=== PATIENT | male | born 1955 | race African-American/Black ===

== ENCOUNTER 2017-02-14 17:07 | Inpatient (IN) | payer OTHER ==
[~2017-02-14] VITALS: Ht 175.3 cm; Wt 78.0 kg
[~2017-02-14 17:07] MED LIST: HUMU70IN SQ; VITA100020 PO; VITA400C58 PO; VITA50TA30 PO
[2017-02-14 17:27] VITALS: BP 132/83; PULSE 81; RESP 18; TEMP 98.3; O2SAT 97
[2017-02-14 17:37] VITALS: BP 132/83; PULSE 90; RESP 20; O2SAT 96
[2017-02-14] MEDS ORDERED: SODIUM CHLOR 0.9% 1000 ML INJ 1,000 ML IV SCH (17:38)
[2017-02-14] MEDS ORDERED: NOVORP2 SQ (17:40)
[2017-02-14] MEDS ORDERED: NOVOLOGP2 SQ (17:40)
[2017-02-14 17:43] VITALS: RESP 18; O2SAT 96
--- NOTE | 2017-02-14 17:43 | PD ---
HPI Chief Complaint: GI Complaint Time Seen by Provider: 17:32 Travel History International Travel<30 days: No Contact w/Intl Traveler<30days: No Traveled to known affect area: No History of Present Illness HPI PT C/O 2 DAYS OF LLQ PAIN AND NOW TODAY DARK TARRY STOOLS, HAS H/O RA AND ON MTX WELL EMBREL PER HISTORY PFSH Past Medical History Hx Anticoagulant Therapy: Yes Arthritis: Yes Atrial Fibrillation: Yes Depression: Yes Heart Rhythm Problems: Yes (atrial fibrillation) Cardiac Catheterization: Yes (1996) Cardiovascular Problems: Yes High Cholesterol: Yes Congestive Heart Failure: No Diabetes: Yes Patient Takes Glucophage: No Diminished Hearing: No Hypertension: Yes Psychiatric: Yes (PTSD) Tetanus Vaccination: Unknown Influenza Vaccination: Yes Past Surgical History Appendectomy: Yes Other Surgery: Yes (l1 l2 , c5 c6 laminectomies with plate and screws in cervical) Family History Family Myocardial Infarction: Yes (father of [place]) Social History Alcohol Use: No Tobacco Use: No Substance Use: No Allergies-Medications (Allergen,Severity, Reaction): Coded Allergies: Lipitor (Verified Allergy, Severe, JOINT PAIN, 02/14/17) Neurontin (Verified Allergy, Severe, 02/14/17) Cymbalta (Verified Allergy, Intermediate, RASH AND HIVES, 02/14/17) Reported Meds & Prescriptions Reported Meds & Active Scripts Active Reported Novolin R Inj (Insulin Human Regular) 1,000 Unit/10 Ml Vial 0 SQ DIRECTED Sliding Scale As Directed. Novolog Inj (Insulin Aspart) 1,000 Unit/10 Ml Vial 0 SQ DIRECTED Sliding Scale as directed. Review of Systems Except as stated in HPI: all other systems reviewed are Neg Gastrointestinal: Positive: Abdominal Pain, Other (MELENA) Physical Exam Narrative GENERAL: SKIN: Warm and dry. HEAD: Atraumatic. Normocephalic. EYES: Pupils equal and round. No scleral icterus. No injection or drainage. ENT: No nasal bleeding or discharge. Mucous membranes pink and moist. NECK: Trachea midline. No JVD. CARDIOVASCULAR: Regular rate and rhythm. RESPIRATORY: No accessory muscle use. Clear to auscultation. Breath sounds equal bilaterally. GASTROINTESTINAL: NABS, TTP ON LLQ, NO REBOUND/GUARDING/RIGIDITY, RN MINE ADMINISTRATOR SUPERVISOR SHOWS GUAIAC POSITIVE. MUSCULOSKELETAL: Extremities without clubbing, cyanosis, or edema. No obvious deformities. NEUROLOGICAL: Awake and alert. No obvious cranial nerve deficits. Motor grossly within normal limits. Five out of 5 muscle strength in the arms and legs. Normal speech. PSYCHIATRIC: Appropriate mood and affect; insight and judgment normal. Data Data Last Documented VS Vital Signs Date Time Temp Pulse Resp B/P Pulse Ox O2 Delivery O2 Flow Rate FiO2 02/14/17 17:43 96 Room Air 02/14/17 17:43 18 02/14/17 17:37 90 132/83 02/14/17 17:27 98.3 Orders Complete Blood Count With Diff (02/14/17 17:38) Comprehensive Metabolic Panel (02/14/17 17:38) Lipase (02/14/17 17:38) Prothrombin Time / Inr (Pt) (02/14/17 17:38) Act Partial Throm Time (Ptt) (02/14/17 17:38) Type And Screen (02/14/17 17:38) Ecg Monitoring (02/14/17 17:38) Iv Access Insert/Monitor (02/14/17 17:38) Oximetry (02/14/17 17:38) Oxygen Administration (02/14/17 17:38) Ondansetron Inj (Zofran Inj) (02/14/17 17:45) Pantoprazole Inj (Protonix Inj) (02/14/17 17:45) Hydromorphone Pf Inj (Dilaudid Pf Inj) (02/14/17 17:45) Ct Abd/Pel W Iv Contrast(Rout) (02/14/17 17:38) Sodium Chlor 0.9% 1000 Ml Inj (Ns 1000 M (02/14/17 17:38) Metronidazole 500 Mg Inj (Flagyl 500 Mg (02/14/17 19:00) Iohexol 350 Inj (Omnipaque 350 Inj) (02/14/17 18:50) Labs Laboratory Tests Test 02/14/17 17:45 White Blood Count 12.0 TH/MM3 Red Blood Count 4.97 MIL/MM3 Hemoglobin 14.7 GM/DL Hematocrit 44.3 % Mean Corpuscular Volume 89.1 FL Mean Corpuscular Hemoglobin 29.5 PG Mean Corpuscular Hemoglobin 33.1 % Concent Red Cell Distribution Width 13.0 % Platelet Count 194 TH/MM3 Mean Platelet Volume 7.6 FL Neutrophils (%) (Auto) 84.2 % Lymphocytes (%) (Auto) 8.6 % Monocytes (%) (Auto) 7.1 % Eosinophils (%) (Auto) 0.1 % Basophils (%) (Auto) 0.0 % Neutrophils # (Auto) 10.1 TH/MM3 Lymphocytes # (Auto) 1.0 TH/MM3 Monocytes # (Auto) 0.9 TH/MM3 Eosinophils # (Auto) 0.0 TH/MM3 Basophils # (Auto) 0.0 TH/MM3 CBC Comment DIFF FINAL Differential Comment Prothrombin Time 10.5 SEC Prothromb Time International 1.0 RATIO Ratio Activated Partial 22.4 SEC Thromboplast Time Sodium Level 133 MEQ/L Potassium Level 4.1 MEQ/L Chloride Level 99 MEQ/L Carbon Dioxide Level 25.7 MEQ/L Anion Gap 8 MEQ/L Blood Urea Nitrogen 12 MG/DL Creatinine 0.96 MG/DL Estimat Glomerular Filtration 96 ML/MIN Rate Random Glucose 153 MG/DL Calcium Level 9.2 MG/DL Total Bilirubin 0.7 MG/DL Aspartate Amino Transf 17 U/L (AST/SGOT) Alanine Aminotransferase 26 U/L (ALT/SGPT) Alkaline Phosphatase 55 U/L Total Protein 7.8 GM/DL Albumin 3.9 GM/DL Lipase 79 U/L [facility] Medical Decision Making Medical Screen Exam Complete: Yes Emergency Medical Condition: Yes Medical Record Reviewed: Yes Differential Diagnosis GI BLEED, DIVERTICULAR DISEASE Narrative Course PATIENT IS CURRENTLY PENDING CT ABD FOR SAKE OF COMPLETENESS, PT IS GI BLEED HEMODDYNAMICALLY STABLE, H/H STABLE WELL, AWAITING [facility] FOR ADMISSION [facility] Point of Care Internal Pos. & Neg. Controls: Passed Fecal Specimen Occult Blood: Positive Diagnosis Primary Impression: GI bleed Qualified Code: K92.1 - Gastrointestinal hemorrhage with melena Admitting Information Admitting Physician Requests: Admit Evan Dillon MD February 14, 2017 17:43 Evan Dillon MD February 14, 2017 17:43
[2017-02-14] MEDS ORDERED: HYDROmorphone HCL PF 1 MG/ML VIAL IM ONE (17:45)
[2017-02-14] MEDS ORDERED: ONDANSETRON HCL 4 MG/2 ML VIAL IVP ONE (17:45)
[2017-02-14] MEDS ORDERED: PANTOPRAZOLE SODIUM 40 MG VIAL IVP ONE (17:45)
[2017-02-14 18:08] LABS: AUTOMATED NEUTROPHIL # 10.1 TH/MM3 (1.8-7.7); EOSINOPHIL % 0.1 % (0.0-4.0); HEMATOCRIT 44.3 % (39.0-51.0); HEMO FLAGS DIFF FINAL; LYMPH % 8.6 % (9.0-44.0); MEAN CELL VOLUME 89.1 FL (80.0-100.0); MEAN CORPUSCULAR HEMOGLOBIN 29.5 PG (27.0-34.0); MEAN CORPUSCULAR HGB CONC 33.1 % (32.0-36.0); MONO % 7.1 % (0.0-8.0); NEUT % 84.2 % (16.0-70.0); PLATELET COUNT 194 TH/MM3 (150-450); RED BLOOD COUNT 4.97 MIL/MM3 (4.50-5.90)
[2017-02-14 18:22] LABS: APTT (PATIENT) 22.4 SEC (24.3-30.1); PROTHROMBIN TIME - PATIENT 10.5 SEC (9.8-11.6)
[2017-02-14 18:34] LABS: ALT (GPT) 26 U/L (12-78); ANION GAP 8 MEQ/L (5-15); AST (GOT) 17 U/L (15-37); BICARBONATE 25.7 MEQ/L (21.0-32.0); BLOOD UREA NITROGEN 12 MG/DL (7-18); CHLORIDE 99 MEQ/L (98-107); GLOMERULAR FILTRATION RATE 96 ML/MIN (>89); POTASSIUM 4.1 MEQ/L (3.5-5.1); SODIUM (NA) 133 MEQ/L (136-145)
[2017-02-14 18:37] LABS: ALKALINE PHOSPHATASE 55 U/L (45-117); TOTAL BILIRUBIN ADULT 0.7 MG/DL (0.2-1.0)
[2017-02-14] MEDS ORDERED: IOHEXOL 350 MG/ML 10 ML VIAL (for RAD DIAG) IV ONE (18:50)
[2017-02-14] MEDS ORDERED: metroNIDAZOLE 500 MG INJ 100 ML IV ONE (19:00)
[2017-02-14] MEDS ORDERED: METH2.5T PO (19:05)
--- NOTE | 2017-02-14 19:22 | RADRPT ---
EXAM DATE/TIME: 02/14/2017 18:43 [facility] COMPARISON: No previous studies available for comparison. INDICATIONS : Left lower quadrant pain with tary stools. IV CONTRAST: 80 cc Omnipaque 350 (iohexol) IV ORAL CONTRAST: No oral contrast ingested. RADIATION DOSE: 7.34 CTDIvol (mGy) MEDICAL HISTORY : Cardiovascular disease. Hypertension. Afib,diabetes SURGICAL HISTORY : Appendectomy. ENCOUNTER: Initial ACUITY: 2 days PAIN SCALE: 7/10 LOCATION: Left Abdomen TECHNIQUE: Volumetric scanning of the abdomen and pelvis was performed. Using automated exposure control and ad justment of the mA and/or kV according to patient size, radiation dose was kept as low as reasonably achievable to obtain optimal diagnostic quality images. FINDINGS: There is subsegmental atelectasis in the both bases. The liver and spleen are free of focal defects. The gallbladder and pancreas demonstrate no abnormality. The adrenal glands are normal. The kidneys demonstrate no evidence of solid renal mass or hydronephrosis. No free fluid or abdominal masses are identified. No para-aortic adenopathy is seen. Examination of the pelvis demonstrates no evidence of free fluid or pelvic mass. No abnormally enlarg ed inguinal or retroperitoneal lymph nodes are present. The bladder is unremarkable. There is mucosal edema involving the descending colon without evidence of abscess. Infectious and inflammatory etiolo gies could be considered. CONCLUSION: 1. Mucosal edema involving the descending colon characteristic of infectious or inflammatory colitis. There is no evidence of abscess. Can Lugo MD on February 14, 2017 at 19:18 Board Certified Radiologist. This report was verified electronically.
[2017-02-14] MEDS ORDERED: SODIUM CHLORIDE 0.9% FLUSH 10 ML FLUSH IV FLUSH PRN (20:00)
[2017-02-14] MEDS ORDERED: NALOXONE HCL 0.4 MG/ML AMP IV PRN (20:00)
[2017-02-14] MEDS: CIPROFLOXACIN 400 MG PREMIX 200 ML IV SCH (20:18)
--- NOTE | 2017-02-14 20:47 | HHI.HP ---
[facility] Primary Care Physician [facility] Admission Diagnosis Colitis, GI bleeding . Diagnoses: (1) Colitis (2) GI bleed Chief Complaint: Abdominal pain and dark stools with blood clots Travel History International Travel<30 Days: No Contact w/Intl Traveler <30 Da: No Traveled to Known Affected Are: No History of Present Illness Written by Za Romero, acting as scribe for Dr. Thakur on 02/14/17 at 20:39. Mr. Taylor is a year-old male with a history of hyperlipidemia, hypertension, arthritis, diabetes mellitus, PTSD, possible atrial fibrillation, and depression who presented to the emergency room on 02/14/2017 complaining of left lower quadrant pain and dark stools. Stool for occult blood was checked in the emergency room and was positive. Abdomen/pelvis CT characteristic of infectious or inflammatory colitis The patient is admitted for medical management of colitis and GI bleed. The patient is seen in the emergency room. He states that he woke up in the morning on 02/14/2017 with severe stomach pain all over the abdomen and when he had a bowel movement, he was passing blood in his stool- dark blood with clots. Took an Oxycodone 5 mg. to alleviate his pain with some relief. He states he has had similar abdominal pain in the past but did not pass blood with stools- his pain is typically located in his lower abdomen radiating to upper legs/ groin area but the pain that brought him to the ER was very different. At 3:35 p.m., felt like he was going to pass out; he felt drowsy, weak and consequently he alerted EMS. He denies any shortness of breath. He reports that he has intermittent chest pain that radiates into his right arm and some diaphoresis with nausea and vomiting. He reports that he feels like he may have been having fever. Denies syncope or falls. He reports severe joint and stomach pain x 2 years; been difficult to get out of bed because of pain. Wakes up feeling stiff and achy. He also reports bladder distention, bladder pain, and urinary hesitancy. He states that he spent 10 days in ICU in [facility] for irregular heart beat. It sounds like this was for atrial fibrillation but the only anticoagulation he was given was Aspirin. Denies hypertension, CAD, COPD, liver problems, cirrhosis, kidney problems, DVT , PE, or CVA. He states he is on methotrexate and Embrel for RA. Last colonoscopy was 10 years ago - results reported as normal. He has a repeat colonoscopy scheduled in May at the [facility]. Review of Systems Except as stated in HPI: all other systems reviewed are Neg Past Family Social History Past Medical History Hyperlipidemia Hypertension Arthritis Diabetes mellitus PTSD Depression ?Atrial fibrillation? . Past Surgical History Cardiac catheterization Appendectomy L1 - 2 laminectomy C5 - C6 laminectomy with plates and screws Hemorrhoidectomy in [place], [place] 1979 . Reported Medications Takes Embrel Reported Meds & Active Scripts Active Reported Methotrexate 2.5 Mg Tab 2.5 Mg PO Q7D Novolin R Inj (Insulin Human Regular) 1,000 Unit/10 Ml Vial 0 SQ DIRECTED Sliding Scale As Directed. Novolog Inj (Insulin Aspart) 1,000 Unit/10 Ml Vial 0 SQ DIRECTED Sliding Scale as directed. . Allergies: Coded Allergies: Lipitor (Verified Allergy, Severe, JOINT PAIN, 02/14/17) Neurontin (Verified Allergy, Severe, 02/14/17) Cymbalta (Verified Allergy, Intermediate, RASH AND HIVES, 02/14/17) Active Ordered Medications Current Medications Ondansetron HCl (Zofran Inj) 4 mg ONCE ONCE IVP Last administered on 18:07; Start 02/14/17 at 17:45; Stop 02/14/17 at 17:46; Status DC Pantoprazole Sodium (Protonix Inj) 40 mg ONCE ONCE IVP Last administered on 18:06; Start 02/14/17 at 17:45; Stop 02/14/17 at 17:46; Status DC Hydromorphone HCl 1 mg 1 mg ONCE ONCE IM Last administered on 02/14/17 18:07 ; Start 02/14/17 at 17:45; Stop 02/14/17 at 17:46; Status DC Sodium Chloride 1,000 ml @ 125 mls/hr Q8H IV Last administered on 02/14/17 18 :06; Start 02/14/17 at 17:38; Stop 02/15/17 at 01:37 Metronidazole (Flagyl 500 Mg Inj) 100 ml @ 100 mls/hr ONCE ONCE IV Last administered on 02/14/17 19:10; Start 02/14/17 at 19:00; Stop 02/14/17 at 19:59 ; Status DC Iohexol (Omnipaque 350 Inj) 80 ml STK-MED ONCE IV Last administered on 18:50; Start 02/14/17 at 18:50; Stop 02/14/17 at 18:51; Status DC Sodium Chloride (NS Flush) 2 ml UNSCH PRN IV FLUSH FLUSH AFTER USING IV ACCESS ; Start 02/14/17 at 20:00 Sodium Chloride (NS Flush) 2 ml BID IV FLUSH ; Start 02/14/17 at 21:00 Naloxone HCl 0.4 mg 0.4 mg UNSCH PRN IV SEE LABEL COMMENTS; Start 02/14/17 at 20:00 Metronidazole 100 ml @ 100 mls/hr Q6H IV ; Start 02/15/17 at 01:00 Ciprofloxacin/ Dextrose (Cipro 400 Mg Premix) 200 ml @ 200 mls/hr Q12H IV Last administered on 02/14/17 20:18; Start 02/14/17 at 20:00 Lactobacillus Acidophilus (Lactinex) 1 tab TID PO ; Start 02/15/17 at 09:00 Hydromorphone HCl (Dilaudid Pf Inj) 0.2 mg Q4H PRN IV PUSH pain >5; Start 02/14 at 20:00 . Family History Sister with diverticulitis Sister with diabetes mellitus . Social History Tobacco: Denies Alcohol: Denies Illicit Drugs: Denies . Physical Exam Vital Signs Vital Signs Date Time Temp Pulse Resp B/P Pulse Ox O2 Delivery O2 Flow Rate FiO2 02/14/17 17:43 96 Room Air 02/14/17 17:43 18 96 Room Air 02/14/17 17:37 90 20 132/83 96 Room Air 02/14/17 17:35 20 02/14/17 17:27 98.3 81 18 132/83 97 Physical Exam GENERAL: This is a well-nourished, well-developed patient, in no apparent distress. SKIN: No rashes, ecchymoses or lesions. Cool and dry. HEAD: Atraumatic. Normocephalic. EYES: No scleral icterus. No injection or drainage. ENT: Nose without bleeding, purulent drainage. NECK: Trachea midline. No JVD or lymphadenopathy. CARDIOVASCULAR: Regular rate and rhythm without murmurs, gallops, or rubs. RESPIRATORY: Clear to auscultation. Breath sounds equal bilaterally. No wheezes , rales, or rhonchi. GASTROINTESTINAL: Abdomen with normal bowel sound, soft, nondistended. No guarding. Tender with palpation. MUSCULOSKELETAL: Extremities without clubbing, cyanosis, or edema. No calf tenderness. NEUROLOGICAL: Awake and alert. Motor and sensory grossly within normal limits. Normal speech. . Laboratory Laboratory Tests Test 02/14/17 17:45 White Blood Count 12.0 Red Blood Count 4.97 Hemoglobin 14.7 Hematocrit 44.3 Mean Corpuscular Volume 89.1 Mean Corpuscular Hemoglobin 29.5 Mean Corpuscular Hemoglobin 33.1 Concent Red Cell Distribution Width 13.0 Platelet Count 194 Mean Platelet Volume 7.6 Neutrophils (%) (Auto) 84.2 Lymphocytes (%) (Auto) 8.6 Monocytes (%) (Auto) 7.1 Eosinophils (%) (Auto) 0.1 Basophils (%) (Auto) 0.0 Neutrophils # (Auto) 10.1 Lymphocytes # (Auto) 1.0 Monocytes # (Auto) 0.9 Eosinophils # (Auto) 0.0 Basophils # (Auto) 0.0 CBC Comment DIFF FINAL Differential Comment Prothrombin Time 10.5 Prothromb Time International 1.0 Ratio Activated Partial 22.4 Thromboplast Time Sodium Level 133 Potassium Level 4.1 Chloride Level 99 Carbon Dioxide Level 25.7 Anion Gap 8 Blood Urea Nitrogen 12 Creatinine 0.96 Estimat Glomerular Filtration 96 Rate Random Glucose 153 Calcium Level 9.2 Total Bilirubin 0.7 Aspartate Amino Transf 17 (AST/SGOT) Alanine Aminotransferase 26 (ALT/SGPT) Alkaline Phosphatase 55 Total Protein 7.8 Albumin 3.9 Lipase 79 Blood Type A POSITIVE Antibody Screen NEGATIVE Blood Bank Comment Result Diagram: 02/14/175 02/14/175 Imaging Last Impressions Abdomen/Pelvis CT 02/14/17 9828 Signed Impressions: Service Date/Time: Tuesday, February 14, 2017 18:43 - CONCLUSION: 1. Mucosal edema involving the descending colon characteristic of infectious or inflammatory colitis. There is no evidence of abscess. Can Lugo MD . Assessment and Plan Problem List: (1) Colitis ICD Code: K52.9 Status: Acute (2) GI bleed ICD Code: K92.2 Status: Acute Assessment and Plan Mr. Taylor is a year-old male who presented to the emergency room on 02/14/2017 complaining of left lower quadrant pain and dark stools. Stool for occult blood was was positive. Abdomen/pelvis CT characteristic of infectious or inflammatory colitis The patient is admitted for medical management of colitis and GI bleed. GI bleed - Patient is hemodynamically stable - Hemoglobin 14.7/hematocrit 44.3 on admission - Dilaudid 0.2 mg IV push every 4 hours as needed for pain - Monitor serial H&H every 6 hours - Monitor vital signs every 4 hours - Protonix drip Colitis - Abdomen/pelvis CT shows mucosal edema involving the descending colon characteristic of infectious or inflammatory colitis. No abscesses noted. - WBC elevated at 12.0 with neutrophilia - recheck CBC in a.m. and follow results - Ciprofloxacin 400 mg IV every 12 hours - Metronidazole 500 mg IV every 6 hours - Lactobacillus 1 tab by mouth 3 times a day to maintain normal gastrointestinal lynette - Stool for ova and parasites, occult blood, and enteric pathogens - Nothing by mouth - IVF hydration with D51/2 NS at 100 cc/hr - consult gastroenterology Bladder distention, urinary hesitancy, pelvic pain - ultrasound - r/o mass that may not have been seen with abd/pelvis CT Atypical Chest pain - Serial cardiac enzymes and EKGs to rule out ACS - Chest x-ray Diabetes mellitus - Accuchecks q4h - Hypoglycemia protocol - hold home insulin regimen while NPO - follow trends in blood glucose and treat as needed Mild hyponatremia - Sodium 133 on admission - replaced with IVF - recheck BMP in a.m. and follow results DVT prophylaxis - SCDs . This note was transcribed by [email or web address] [Za Romero]. I, Dr. Angel Thakur personally performed the history, physical exam, and medical decision making; and confirmed the accuracy of the information in the transcribed note. Authenticated by Dr. Angel Thakur on 02/14/17 at 20:39. Discussed Condition With ER physician and patient . Problem Qualifiers (1) GI bleed: Qualified Code: K92.1 - Gastrointestinal hemorrhage with melena Za Romero February 14, 2017 20:47 Angel Thakur MD February 15, 2017 06:45
[2017-02-14] MEDS ORDERED: DEXTROSE 50% IN WATER 50 ML VIAL(D50) IV PRN (21:15)
[2017-02-14] MEDS ORDERED: GLUCAGON 1 MG/ML VIAL OTHER PRN (21:15)
[2017-02-14] MEDS: HYDROmorphone HCL PF 1 MG/ML VIAL IV PUSH PRN (21:19)
--- NOTE | 2017-02-14 21:42 | RADRPT ---
EXAM DATE/TIME: 02/14/2017 21:34 [facility] COMPARISON: CHEST SINGLE AP, January 29, 2016, 11:10. INDICATIONS : Chest pain. MEDICAL HISTORY : None. SURGICAL HISTORY : None. ENCOUNTER: Initial ACUITY: 1 day PAIN SCORE: 6/10 LOCATION: Bilateral chest FINDINGS: A single view of the chest demonstrates the lungs to be symmetrically aerated without evidence of mas s, infiltrate or effusion. The cardiomediastinal contours are unremarkable. Osseous structures are intact. CONCLUSION: 1. No acute cardiopulmonary disease. Can Lugo MD on February 14, 2017 at 21:40 Board Certified Radiologist. This report was verified electronically.
[2017-02-14 21:47] VITALS: BP 111/74; PULSE 96; RESP 20; TEMP 98.6; O2SAT 96
--- NOTE | 2017-02-14 22:08 | RADRPT ---
EXAM DATE/TIME: 02/14/2017 21:46 [facility] COMPARISON: No previous studies available for comparison. INDICATIONS : Bladder distention/pain/urinary hesitancy. MEDICAL HISTORY : Hypercholesterolemia. Arthritis. Syncope. Afib. HTN. Diabetes. PTSD. Anticoagulant therapy. SURGICAL HISTORY : Appendectomy. Cardiac cath. Laminectomies with plate and screws in cervical. ENCOUNTER: Initial ACUITY: 2 days PAIN SCORE: 8/10 LOCATION: Bilateral flank MEASUREMENTS: RIGHT KIDNEY: 11.4 x 5.0 x 5.8 cm LEFT KIDNEY: 11.6 x 4.6 x 5.6 cm FINDINGS: The kidneys demonstrates increased echogenicity of the cortex compatible with medical renal disease. No hydronephrosis or mass lesions are identified. There is a single simple cyst in the left kidney m easuring 1.3 cm. The bladder appears normal. No wall thickening or intraluminal masses are identified . CONCLUSION: 1. Echogenic kidneys bilaterally compatible with medical renal disease. Can Lugo MD on February 14, 2017 at 22:06 Board Certified Radiologist. This report was verified electronically.
[2017-02-14 22:09] LABS: CREATINE KINASE 69 U/L (39-308)
[2017-02-14] MEDS: SODIUM CHLORIDE 0.9% FLUSH 10 ML FLUSH IV FLUSH SCH (22:15)
[2017-02-14] MEDS: PANTOPRAZOLE INJ 80 MG in SODIUM CHLORIDE 0.9% INJ 100 ML IV SCH (22:15)
[2017-02-14] MEDS: DEXT 5%-NACL 0.45% 1000 ML INJ 1,000 ML IV SCH (22:15)
[2017-02-14 23:31] LABS: HEMATOCRIT 42.4 % (39.0-51.0); REVIEW FLAG FINAL
[2017-02-15] VITALS (10 sets, daily range): BP systolic 99–148; BP diastolic 56–73; PULSE 75–103; RESP 18–22; TEMP 98–99.4; O2SAT 94–97
[2017-02-15 00:05] LABS: CREATINE KINASE 67 U/L (39-308)
[2017-02-15] MEDS: HYDROmorphone HCL PF 1 MG/ML VIAL IV PUSH PRN ×6 (00:17→23:52)
[2017-02-15] MEDS: metroNIDAZOLE 500 MG INJ 100 ML IV SCH ×5 (00:17→23:53)
[2017-02-15] MEDS: DEXT 5%-NACL 0.45% 1000 ML INJ 1,000 ML IV SCH ×2 (06:23→23:53)
[2017-02-15 06:48] LABS: AUTOMATED NEUTROPHIL # 6.3 TH/MM3 (1.8-7.7); EOSINOPHIL % 0.4 % (0.0-4.0); HEMATOCRIT 39.4 % (39.0-51.0); HEMO FLAGS DIFF FINAL; LYMPH % 17.6 % (9.0-44.0); LYMPHOCYTE # 1.5 TH/MM3 (1.0-4.8); MEAN CELL VOLUME 88.4 FL (80.0-100.0); MEAN CORPUSCULAR HEMOGLOBIN 30.6 PG (27.0-34.0); MEAN CORPUSCULAR HGB CONC 34.6 % (32.0-36.0); MONO % 8.5 % (0.0-8.0); NEUT % 73.5 % (16.0-70.0); PLATELET COUNT 175 TH/MM3 (150-450); RED BLOOD COUNT 4.45 MIL/MM3 (4.50-5.90); WHITE BLOOD COUNT 8.6 TH/MM3 (4.0-11.0)
[2017-02-15 07:17] LABS: BICARBONATE 25.6 MEQ/L (21.0-32.0); POTASSIUM 3.9 MEQ/L (3.5-5.1)
[2017-02-15] MEDS: LACTOBACILLUS ACIDOPHILUS TAB PO SCH ×3 (09:06→18:47)
[2017-02-15] MEDS: CIPROFLOXACIN 400 MG PREMIX 200 ML IV SCH ×2 (09:06→20:08)
[2017-02-15] MEDS: PANTOPRAZOLE INJ 80 MG in SODIUM CHLORIDE 0.9% INJ 100 ML IV SCH ×2 (09:07→18:47)
[2017-02-15] MEDS: SODIUM CHLOR 0.9% 1000 ML INJ 1,000 ML IV SCH ×2 (09:09→20:08)
[2017-02-15] MEDS: SODIUM CHLORIDE 0.9% FLUSH 10 ML FLUSH IV FLUSH SCH ×2 (09:10→20:09)
--- NOTE | 2017-02-15 10:06 | HHI.PR ---
Subjective Remarks Follow-up for abdominal pain. The patient continues to report lower abdominal discomfort. He states that he's been having intermittent lower abdominal discomfort for 3 years. He states that [facility] and [facility]'t feel like [facility]'re doing anything about it. He reports he is compliant with his medications. He had a bowel movement in the ED yesterday that was gross blood with not really any stool. He states that he tried to have a bowel movement today, couldn't have one, but did wipe blood. He reports lightheadedness and dizziness. He denies any shortness of breath. He states he has a "little" chest pain. He states he is now having problems urinating. He last had a colonoscopy 10 years ago, had a benign polyp removed, otherwise reportedly unremarkable. Objective Vitals Vital Signs Date Time Temp Pulse Resp B/P Pulse Ox O2 Delivery O2 Flow Rate FiO2 02/15/17 08:31 98.1 87 18 104/61 97 02/15/17 06:56 16 02/15/17 03:55 98.7 89 22 99/56 95 02/15/17 00:52 89 02/15/17 00:15 98.6 78 20 108/67 95 02/14/17 21:47 98.6 96 20 111/74 96 02/14/17 17:43 96 Room Air 02/14/17 17:43 18 96 Room Air 02/14/17 17:37 90 20 132/83 96 Room Air 02/14/17 17:35 20 02/14/17 17:27 98.3 81 18 132/83 97 I/O 02/14/17 02/14/17 02/14/17 02/15/17 02/15/17 02/15/17 07:00 15:00 23:00 07:00 15:00 23:00 Output Total 1000 ml 800 ml Balance -1000 ml -800 ml Output Urine Total 1000 ml 800 ml Result Diagram: 02/15/1761102/15/17611 Imaging Last Impressions Abdomen/Pelvis CT 02/14/17 173 Signed Impressions: Service Date/Time: Tuesday, February 14, 2017 18:43 - CONCLUSION: 1. Mucosal edema involving the descending colon characteristic of infectious or inflammatory colitis. There is no evidence of abscess. Can Lugo MD Renal Ultrasound 02/14/17 0000 Signed Impressions: Service Date/Time: Tuesday, February 14, 2017 21:46 - CONCLUSION: 1. Echogenic kidneys bilaterally compatible with medical renal disease. Can Lugo MD Chest X-Ray 02/14/17 0000 Signed Impressions: Service Date/Time: Tuesday, February 14, 2017 21:34 - CONCLUSION: 1. No acute cardiopulmonary disease. Can Lugo MD Objective Remarks GENERAL: Well-developed well-nourished. In no acute distress. SKIN: Warm and dry. No lesions noted. HEENT: Normocephalic. Pupils equal and round. Mucous membranes pink and moist. CARDIOVASCULAR: Regular rate and rhythm. No murmur appreciated. RESPIRATORY: No accessory muscle use. Clear to auscultation. Breath sounds equal bilaterally. GASTROINTESTINAL: Abdomen soft, generalized tenderness worse in the lower abdomen, nondistended. Bowel sounds x4. MUSCULOSKELETAL: No obvious deformities. No clubbing or cyanosis. No edema. NEUROLOGICAL: Awake and alert. No focal neurological deficits. Moves upper and lower extremities spontaneously. Normal speech. PSYCHIATRIC: Appropriate mood and affect; insight and judgment normal. A/P Problem List: (1) Colitis ICD Code: K52.9 Status: Acute (2) GI bleed ICD Code: K92.2 Status: Acute Assessment and Plan Mr. Taylor is a 61 year-old male with a history of hyperlipidemia, hypertension , arthritis, diabetes mellitus, PTSD, possible atrial fibrillation, and depression who presented complaining of left lower quadrant pain, bloody stools , chest pain Colitis with GI bleeding. Infectious versus inflammatory, patient is immunosuppressed due to RA. Reviewed: Abdomen/pelvis CT shows mucosal edema involving the descending colon characteristic of infectious or inflammatory colitis. Hemoglobin 14.7->13.6. - Dilaudid 0.2 mg IV push every 4 hours as needed for pain - Monitor H&H, currently stable, transfuse if indicated - Protonix drip - IV antibiotics - GI consulted - Lactinex - Stool studies - Nothing by mouth pending GI eval, IVF Sepsis secondary to colitis - Tachycardia, tachypnea, leukocytosis. - Continue IV Cipro and Flagyl - Check blood cultures - Follow up culture results Bladder distention, urinary hesitancy, pelvic pain - suspect secondary to dehydration Reviewed: ultrasound which showed no obstruction or bladder abnormalities. - Continue hydration Atypical Chest pain, mild Reviewed: Troponin negative 2. EKG with NSR. Chest x-ray clear. - Serial cardiac enzymes and EKGs to rule out ACS Diabetes mellitus - Accuchecks q4h - Hypoglycemia protocol - hold home insulin regimen while NPO with supplemental D5 IVF - follow trends in blood glucose and treat as needed Mild hyponatremia/dehydration Reviewed: Sodium 133 on admission, improved 136 with IVF - Monitor. DVT prophylaxis - SCDs Problem Qualifiers (1) GI bleed: Qualified Code: K92.1 - Gastrointestinal hemorrhage with melena Renny Marquez February 15, 2017 10:06 (1) GI bleed: Qualified Code: K92.1 - Gastrointestinal hemorrhage with melena Renny Marquez February 15, 2017 10:06
[2017-02-15] MEDS: INSULIN ASPART SUPPLEMENTAL SCALE SQ SCH ×3 (11:00→20:19)
--- NOTE | 2017-02-15 11:52 | PD.CONS ---
HPI History of Present Illness This is a 61 year old [gentleman] with IDDM, RA, who experienced Yesterday onset diarrhea with red blood, nausea but not vomiting. The lower abdominal pain was at time severe, also spread to sides, has bloating. He is having difficulty urinating. He admits hemorhoids 20 y ago treated with surgery. IN the last 3 years he did not notice bleeding. He has been constipated. He c/o that he has had lower abd pain for [address] [place] missed this. Last colonoscopy 10y ago and says he was going to have one next month. Denies fam hx colitis, crohns. Denies diet changes recently. PFSH Past Medical History Hyperlipidemia Hypertension Arthritis Diabetes mellitus PTSD Depression ?Atrial fibrillation? . Past Surgical History Cardiac catheterization Appendectomy L1 - 2 laminectomy C5 - C6 laminectomy with plates and screws Hemorrhoidectomy in [place], [place] 1979 . Coded Allergies: Lipitor (Verified Allergy, Severe, JOINT PAIN, 02/14/17) Neurontin (Verified Allergy, Severe, 02/14/17) Cymbalta (Verified Allergy, Intermediate, RASH AND HIVES, 02/14/17) Family History Sister with diverticulitis Sister with diabetes mellitus . Social History Tobacco: Denies Alcohol: Denies Illicit Drugs: Denies . GI Exam Vitals I&O Vital Signs Date Time Temp Pulse Resp B/P Pulse Ox O2 Delivery O2 Flow Rate FiO2 02/15/17 08:31 98.1 87 18 104/61 97 02/15/17 06:56 16 02/15/17 03:55 98.7 89 22 99/56 95 02/15/17 00:52 89 02/15/17 00:15 98.6 78 20 108/67 95 02/14/17 21:47 98.6 96 20 111/74 96 02/14/17 17:43 96 Room Air 02/14/17 17:43 18 96 Room Air 02/14/17 17:37 90 20 132/83 96 Room Air 02/14/17 17:35 20 02/14/17 17:27 98.3 81 18 132/83 97 I/O 02/14/17 02/14/17 02/14/17 02/15/17 02/15/17 02/15/17 07:00 15:00 23:00 07:00 15:00 23:00 Output Total 1000 ml 800 ml Balance -1000 ml -800 ml Output Urine Total 1000 ml 800 ml Laboratory Test 02/14/17 02/14/17 02/14/17 02/15/17 17:45 21:15 23:24 06:12 White Blood Count 12.0 TH/MM3 8.6 TH/MM3 Red Blood Count 4.97 MIL/MM3 4.45 MIL/MM3 Hemoglobin 14.7 GM/DL 14.0 GM/DL 13.6 GM/DL Hematocrit 44.3 % 42.4 % 39.4 % Mean Corpuscular Volume 89.1 FL 88.4 FL Mean Corpuscular Hemoglobin 29.5 PG 30.6 PG Mean Corpuscular Hemoglobin 33.1 % 34.6 % Concent Red Cell Distribution Width 13.0 % 13.0 % Platelet Count 194 TH/MM3 175 TH/MM3 Mean Platelet Volume 7.6 FL 7.6 FL Neutrophils (%) (Auto) 84.2 % 73.5 % Lymphocytes (%) (Auto) 8.6 % 17.6 % Monocytes (%) (Auto) 7.1 % 8.5 % Eosinophils (%) (Auto) 0.1 % 0.4 % Basophils (%) (Auto) 0.0 % 0.0 % Neutrophils # (Auto) 10.1 TH/MM3 6.3 TH/MM3 Lymphocytes # (Auto) 1.0 TH/MM3 1.5 TH/MM3 Monocytes # (Auto) 0.9 TH/MM3 0.7 TH/MM3 Eosinophils # (Auto) 0.0 TH/MM3 0.0 TH/MM3 Basophils # (Auto) 0.0 TH/MM3 0.0 TH/MM3 CBC Comment DIFF FINAL DIFF FINAL Differential Comment Prothrombin Time 10.5 SEC Prothromb Time International 1.0 RATIO Ratio Activated Partial 22.4 SEC Thromboplast Time Sodium Level 133 MEQ/L 136 MEQ/L Potassium Level 4.1 MEQ/L 3.9 MEQ/L Chloride Level 99 MEQ/L 103 MEQ/L Carbon Dioxide Level 25.7 MEQ/L 25.6 MEQ/L Anion Gap 8 MEQ/L 7 MEQ/L Blood Urea Nitrogen 12 MG/DL 7 MG/DL Creatinine 0.96 MG/DL 1.01 MG/DL Estimat Glomerular Filtration 96 ML/MIN 90 ML/MIN Rate Random Glucose 153 MG/DL 215 MG/DL Calcium Level 9.2 MG/DL 8.5 MG/DL Total Bilirubin 0.7 MG/DL Aspartate Amino Transf 17 U/L (AST/SGOT) Alanine Aminotransferase 26 U/L (ALT/SGPT) Alkaline Phosphatase 55 U/L Total Protein 7.8 GM/DL Albumin 3.9 GM/DL Lipase 79 U/L Blood Type A POSITIVE Antibody Screen NEGATIVE Blood Bank Comment Total Creatine Kinase 69 U/L 67 U/L Troponin I LESS THAN 0.02 LESS THAN 0.02 NG/ML NG/ML Physical Examination HEENT: Pupils round and reactive to light; normocephalic; atraumatic; no jaundice. Throat is clear. NECK: Neck is supple, no JVD, no lymphadenopathy. CHEST: Chest is clear to auscultation and percussion. CARDIAC: Regular rate and rhythm with no murmur gallop or rubs. ABDOMEN: Soft, nondistended, nontender; no hepatosplenomegaly; bowel sounds are present in all four quadrants. EXTREMITIES: No clubbing, cyanosis, or edema. SKIN: Normal; no rash; no jaundice. 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 Lynne Ponce [facility] February 15, 2017 11:52
--- NOTE | 2017-02-15 13:41 | EKG ---
Date Performed: 02/14/2017 Time Performed: 21:22:29 PTAGE: 61 years EKG: Sinus rhythm NORMAL ECG Compared to prior tracing no significant change PREVIOUS TRACING : 01/29/2016 10.40 DOCTOR: Silvano Messina Interpretating Date/Time 02/19/2017 07:38:38
--- NOTE | 2017-02-15 13:41 | EKG ---
Date Performed: 02/15/2017 Time Performed: 02:12:11 PTAGE: 61 years EKG: Sinus rhythm NORMAL ECG Compared to prior tracing no significant change PREVIOUS TRACING : 02/14/2017 21.22 DOCTOR: Silvano Messina Interpretating Date/Time 02/15/2017 13:38:40
[2017-02-15 13:45] LABS: CREATINE KINASE 65 U/L (39-308)
[2017-02-15 14:32] LABS: HEMATOCRIT 39.3 % (39.0-51.0); REVIEW FLAG FINAL
[2017-02-15 14:58] LABS: C. DIFF EPI 027 PRESUMPTIVE NEGATIVE (NEGATIVE); C. DIFF TOXIN PCR NEGATIVE (NEGATIVE)
[2017-02-15] MEDS ORDERED: PEG (High)/E-LYTE SOLN 4000 ML BTL PO ONE (16:00)
[2017-02-16] VITALS (7 sets, daily range): BP systolic 103–134; BP diastolic 59–74; PULSE 60–96; RESP 13–20; TEMP 96.3–99.5; O2SAT 94–98
[2017-02-16] MEDS: PANTOPRAZOLE INJ 80 MG in SODIUM CHLORIDE 0.9% INJ 100 ML IV SCH ×2 (04:07→14:00)
[2017-02-16] MEDS: HYDROmorphone HCL PF 1 MG/ML VIAL IV PUSH PRN ×3 (04:22→21:22)
[2017-02-16] MEDS: INSULIN ASPART SUPPLEMENTAL SCALE SQ SCH ×4 (04:28→21:00)
[2017-02-16] MEDS ORDERED: CHLORHEXIDINE GLUCONATE 2 % 1 PACK (2 CLOTHS) TOPICAL PRN (05:00)
[2017-02-16] MEDS ORDERED: SODIUM CHLORID 0.9% 500 ML IV PRN (05:00)
[2017-02-16] MEDS ORDERED: POVIDONE IODINE 5% (ANTISEPSIS KIT) 4 APPLICATIONS EACH NARE PRN (05:00)
[2017-02-16] MEDS ORDERED: LACTATED RINGER'S 1000 ML IV PRN (05:00)
[2017-02-16 06:12] LABS: AUTOMATED NEUTROPHIL # 5.4 TH/MM3 (1.8-7.7); BASOPHIL % 0.1 % (0.0-2.0); EOSINOPHIL # 0.1 TH/MM3 (0-0.4); EOSINOPHIL % 1.2 % (0.0-4.0); HEMATOCRIT 36.1 % (39.0-51.0); HEMO FLAGS DIFF FINAL; LYMPH % 21.5 % (9.0-44.0); LYMPHOCYTE # 1.7 TH/MM3 (1.0-4.8); MEAN CELL VOLUME 89.4 FL (80.0-100.0); MEAN CORPUSCULAR HEMOGLOBIN 29.5 PG (27.0-34.0); MEAN CORPUSCULAR HGB CONC 33.1 % (32.0-36.0); MONO % 10.3 % (0.0-8.0); NEUT % 66.9 % (16.0-70.0); PLATELET COUNT 155 TH/MM3 (150-450); RED BLOOD COUNT 4.04 MIL/MM3 (4.50-5.90); WHITE BLOOD COUNT 8.1 TH/MM3 (4.0-11.0)
[2017-02-16] MEDS: metroNIDAZOLE 500 MG INJ 100 ML IV SCH ×3 (06:17→18:12)
[2017-02-16] MEDS: SODIUM CHLOR 0.9% 1000 ML INJ 1,000 ML IV SCH ×2 (06:18→19:30)
[2017-02-16 06:28] LABS: BICARBONATE 27.1 MEQ/L (21.0-32.0); POTASSIUM 3.4 MEQ/L (3.5-5.1)
[2017-02-16] MEDS: LACTOBACILLUS ACIDOPHILUS TAB PO SCH ×3 (09:00→18:11)
[2017-02-16] MEDS: SODIUM CHLORIDE 0.9% FLUSH 10 ML FLUSH IV FLUSH SCH ×2 (09:00→21:00)
[2017-02-16] MEDS: CIPROFLOXACIN 400 MG PREMIX 200 ML IV SCH ×2 (09:21→21:31)
[2017-02-16] MEDS ORDERED: PHENYLEPH/NS 1000 MCG/10 ML SYR IV ONE (12:00)
[2017-02-16] MEDS ORDERED: ePHEDrine/NS 25 MG/5 ML SYR IV ONE (12:00)
[2017-02-16] MEDS ORDERED: MIDAZOLAM HCL 2 MG/2 ML VIAL ONE ×2 (13:17→15:23)
[2017-02-16] MEDS ORDERED: PROPOFOL 200 MG/20 ML AMP IV ONE (14:30)
--- NOTE | 2017-02-16 15:03 | HHI.GIFU ---
Subjective Remarks immediate post procedure note: Colonoscopy with snare polypectomy with biopsy Indication: GI bleed and lower abdominal pain Meds: MAC Findings: TI normal Cecum: normal transverse colon spotty colitis, brightly erythematous biopsy taken Descending and sigmoid colon more severe confluent colitis, consistent with ischemia. Biopsy taken from descending. Rectum at 18cm small polyp removed with cold snare polypectomy Large internal hemorrhoids. Impression: Probable ischemic colitis. No active bleeding. Small incidental polyp removed. Rec: Regular diet as tolerated. Home if tolerating food and otherwise stable. Objective Vitals I&O Vital Signs Date Time Temp Pulse Resp B/P Pulse Ox O2 Delivery O2 Flow Rate FiO2 02/16/17 11:20 96.3 60 18 103/59 95 02/16/17 08:00 96.3 60 13 103/59 95 02/16/17 04:19 98.3 83 18 127/74 98 02/15/17 23:47 99.4 84 18 117/63 96 02/15/17 21:30 75 02/15/17 21:25 99.2 100 18 118/67 97 02/15/17 19:46 98.0 103 19 148/73 94 02/15/17 16:04 98.0 95 18 123/69 97 02/15/17 16:00 20 I/O 02/15/17 02/15/17 02/15/17 02/16/17 02/16/17 02/16/17 07:00 15:00 23:00 07:00 15:00 23:00 Intake Total 3100 ml 567 ml Output Total 800 ml 300 ml 1600 ml Balance -800 ml -300 ml 3100 ml -1033 ml Intake IV Total 3100 ml 567 ml Output Urine Total 800 ml 300 ml 1600 ml # Voids 1 # Bowel Movements 3 2 Laboratory Laboratory Tests Test 02/16/17 05:05 White Blood Count 8.1 Red Blood Count 4.04 Hemoglobin 11.9 Hematocrit 36.1 Mean Corpuscular Volume 89.4 Mean Corpuscular Hemoglobin 29.5 Mean Corpuscular Hemoglobin 33.1 Concent Red Cell Distribution Width 13.0 Platelet Count 155 Mean Platelet Volume 7.8 Neutrophils (%) (Auto) 66.9 Lymphocytes (%) (Auto) 21.5 Monocytes (%) (Auto) 10.3 Eosinophils (%) (Auto) 1.2 Basophils (%) (Auto) 0.1 Neutrophils # (Auto) 5.4 Lymphocytes # (Auto) 1.7 Monocytes # (Auto) 0.8 Eosinophils # (Auto) 0.1 Basophils # (Auto) 0.0 CBC Comment DIFF FINAL Differential Comment Sodium Level 138 Potassium Level 3.4 Chloride Level 104 Carbon Dioxide Level 27.1 Anion Gap 7 Blood Urea Nitrogen 6 Creatinine 0.91 Estimat Glomerular Filtration 102 Rate Random Glucose 182 Calcium Level 8.2 Date/Time Procedure Status Source Growth 02/15/17 12:32 Aerobic Blood Culture - Preliminary Resulted Blood Peripheral NO GROWTH IN 1 DAY 02/15/17 12:32 Anaerobic Blood Culture - Preliminary Resulted Blood Peripheral NO GROWTH IN 1 DAY 02/15/17 12:26 Cryptosporidium Exam Resulted Stool Stool Pending 02/15/17 12:26 Giardia Antigen (AMARJIT) Resulted Stool Stool Pending 02/15/17 12:26 Stool Occult Blood (AMARJIT) - Final Resulted Stool Stool HEMOCCULT POSITIVE 02/15/17 12:26 - Final Complete Stool Stool NO ENTERIC PATHOGENS DETECTED BY PCR... Physical Exam HEENT: Pupils round and reactive to light; normocephalic; atraumatic; no jaundice. Throat is clear. NECK: Neck is supple, no JVD, no lymphadenopathy. CHEST: Chest is clear to auscultation and percussion. CARDIAC: Regular rate and rhythm with no murmur gallop or rubs. ABDOMEN: Soft, nondistended, nontender; no hepatosplenomegaly; bowel sounds are present in all four quadrants. EXTREMITIES: No clubbing, cyanosis, or edema. SKIN: Normal; no rash; no jaundice. 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 Assessment and Plan Plan ASSESSMENT - diarrhea, hematochezia, lower abd pain - Yesterday onset diarrhea with red blood, nausea, lower abd pain also spread to sides, has bloating. Has had lower abd pain for 3 y but bloody diarrhea is new. stool cx, c diff pending. Will do colonoscopy to r/o c diff 02/16 Colonoscopy shows colitis in watershed area consistent with ischemic colitis. Biopsy taken. Small incidental polyp. PLAN - await stool cx -FAN Home if otherwise stable. Avoid constipation by taking miralax one dose per day. Jatinder Purdy MD February 16, 2017 15:03
[2017-02-16] MEDS ORDERED: DO NOT ADM ANY ANTICOAGULANT DRUGS PRN (15:05)
[2017-02-16] MEDS: DEXT 5%-NACL 0.45% 1000 ML INJ 1,000 ML IV SCH (16:14)
[2017-02-16] MEDS ORDERED: POTASSIUM CHLORIDE 10 MEQ CONTROLLED RELEASE TAB PO ONE (21:45)
--- NOTE | 2017-02-16 21:47 | HHI.PR ---
Subjective Remarks Patient seen this morning prior to colonoscopy. Patient states that abdominal pain is controlled. He is looking forward to getting results from colonoscopy. He denies any chest pain. Objective Vital Signs Date Time Temp Pulse Resp B/P Pulse Ox O2 Delivery O2 Flow Rate FiO2 02/16/17 16:00 98.3 92 20 134/72 94 02/16/17 15:35 87 16 109/58 100 Room Air 02/16/17 15:15 85 16 107/54 100 Nasal Cannula 2 02/16/17 15:03 98.4 89 16 107/52 100 Nasal Cannula 2 02/16/17 11:20 96.3 60 18 103/59 95 02/16/17 08:00 96.3 60 13 103/59 95 02/16/17 04:19 98.3 83 18 127/74 98 02/15/17 23:47 99.4 84 18 117/63 96 I/O 02/15/17 02/15/17 02/15/17 02/16/17 02/16/17 02/16/17 07:00 15:00 23:00 07:00 15:00 23:00 Intake Total 3100 ml 567 ml 500 ml Output Total 800 ml 300 ml 1600 ml 400 ml 50 ml Balance -800 ml -300 ml 3100 ml -1033 ml -400 ml 450 ml IV Total 3100 ml 567 ml 100 ml Other 400 ml Output Urine Total 800 ml 300 ml 1600 ml 400 ml Estimated Blood Loss 50 ml # Voids 1 1 # Bowel Movements 3 2 1 Result Diagram: 02/16/17 0505 02/16/17 0505 Objective Remarks GENERAL: patient lying in bed. alert and oriented 3. SKIN: Warm and dry. HEAD: Normocephalic. EYES: No scleral icterus. No injection or drainage. NECK: Supple, trachea midline. No JVD CARDIOVASCULAR: Regular rate and rhythm without murmurs, gallops, or rubs. RESPIRATORY: Breath sounds equal bilaterally. No accessory muscle use. GASTROINTESTINAL: Abdomen soft, generalized tenderness to moderate palpation. No rebound or guarding. MUSCULOSKELETAL: No cyanosis, or edema. BACK: Nontender without obvious deformity. No CVA tenderness. A/P Assessment and Plan ==== 02/15/17 Hemoglobin 11.9, down from 13.1. Slow drop. Pending colonoscopy. Hypokalemia. 3.4. Mild. Replace. Diabetic. Blood glucose stable. Mr. Taylor is a 61 year-old male with a history of hyperlipidemia, hypertension , arthritis, diabetes mellitus, PTSD, possible atrial fibrillation, and depression who presented complaining of left lower quadrant pain, bloody stools , chest pain Colitis with GI bleeding. Infectious versus inflammatory, patient is immunosuppressed due to RA. Reviewed: Abdomen/pelvis CT shows mucosal edema involving the descending colon characteristic of infectious or inflammatory colitis. Hemoglobin 14.7->13.6. - Dilaudid 0.2 mg IV push every 4 hours as needed for pain - Monitor H&H, currently stable, transfuse if indicated - Protonix drip - IV antibiotics - GI consulted - Lactinex - Stool studies - Nothing by mouth pending colonoscopy. Hemoglobin from 13.1-11.9, slow drop. Appreciate gastroenterology assistance. Sepsis secondary to colitis - Tachycardia, tachypnea, leukocytosis. - Continue IV Cipro and Flagyl - Check blood cultures -Cultures negative to date. Continue to monitor. Bladder distention, urinary hesitancy, pelvic pain - suspect secondary to dehydration Reviewed: ultrasound which showed no obstruction or bladder abnormalities. - Continue hydration Atypical Chest pain, mild Reviewed: Troponin negative 2. EKG with NSR. Chest x-ray clear. - Serial cardiac enzymes and EKGs to rule out ACS Diabetes mellitus - Accuchecks q4h - Hypoglycemia protocol - hold home insulin regimen while NPO with supplemental D5 IVF - follow trends in blood glucose and treat as needed Mild hyponatremia/dehydration Reviewed: Sodium 133 on admission, improved 138 with IVF - Monitor. DVT prophylaxis - SCDs Discharge Planning Likely go home when cleared by gastroenterology. Prince Weiner MD February 16, 2017 21:47
--- NOTE | 2017-02-16 22:02 | EKG ---
Date Performed: 02/15/2017 Time Performed: 09:24:41 PTAGE: 61 years EKG: Sinus rhythm EARLY REPOLARIZATION BORDERLINE ECG PREVIOUS TRACING : 02/15/2017 02.12 Compared to prior tracing no significant change DOCTOR: Marshall Cano Interpretating Date/Time 02/16/2017 22:00:57
[2017-02-17] VITALS (8 sets, daily range): BP systolic 91–119; BP diastolic 54–72; PULSE 76–88; RESP 16–20; TEMP 97.4–98.4; O2SAT 93–97
[2017-02-17] MEDS: PANTOPRAZOLE INJ 80 MG in SODIUM CHLORIDE 0.9% INJ 100 ML IV SCH (00:13)
[2017-02-17] MEDS: metroNIDAZOLE 500 MG INJ 100 ML IV SCH ×4 (00:48→18:21)
[2017-02-17 04:23] LABS: BASOPHIL % 0.1 % (0.0-2.0); EOSINOPHIL # 0.1 TH/MM3 (0-0.4); EOSINOPHIL % 1.7 % (0.0-4.0); HEMATOCRIT 36.3 % (39.0-51.0); HEMO FLAGS DIFF FINAL; LYMPH % 21.5 % (9.0-44.0); LYMPHOCYTE # 1.6 TH/MM3 (1.0-4.8); MEAN CELL VOLUME 88.9 FL (80.0-100.0); MEAN CORPUSCULAR HEMOGLOBIN 30.6 PG (27.0-34.0); MEAN CORPUSCULAR HGB CONC 34.4 % (32.0-36.0); MONO % 9.5 % (0.0-8.0); NEUT % 67.2 % (16.0-70.0); PLATELET COUNT 148 TH/MM3 (150-450); RED BLOOD COUNT 4.08 MIL/MM3 (4.50-5.90); WHITE BLOOD COUNT 7.4 TH/MM3 (4.0-11.0)
[2017-02-17 04:49] LABS: BICARBONATE 27.1 MEQ/L (21.0-32.0); MAGNESIUM 2.1 MG/DL (1.5-2.5); POTASSIUM 3.7 MEQ/L (3.5-5.1)
[2017-02-17] MEDS: INSULIN ASPART SUPPLEMENTAL SCALE SQ SCH ×4 (06:45→22:55)
[2017-02-17] MEDS: SODIUM CHLOR 0.9% 1000 ML INJ 1,000 ML IV SCH ×2 (06:45→19:20)
[2017-02-17] MEDS: DEXT 5%-NACL 0.45% 1000 ML INJ 1,000 ML IV SCH (06:47)
[2017-02-17] MEDS: HYDROmorphone HCL PF 1 MG/ML VIAL IV PUSH PRN (06:49)
--- NOTE | 2017-02-17 07:53 | HHI.PR ---
Subjective Remarks Patient seen for follow up LLQ pain and bloody stools. 02/17/17-patient seen this morning. No acute events overnight. Some low pressures this morning (MAP in the 60s). Otherwise vitals are WNL. Main complaint this morning is difficulty passing urine. On review of EMR, does have 1825 UOP over the past 24 hours (~ 1cc/kg/hr), however, does report weak stream and incomplete evacuation of bladder. He also c/o continued, 7/10 abdominal pain along with some bloating. Does not feel ready for DC home. Denies any F/C, CP, or SOB. Objective Vitals Vital Signs Date Time Temp Pulse Resp B/P Pulse Ox O2 Delivery O2 Flow Rate FiO2 02/17/17 04:00 97.8 84 18 91/54 96 02/17/17 00:00 98.4 88 20 107/60 96 02/16/17 21:34 94 Nasal Cannula 2.00 02/16/17 21:30 86 02/16/17 20:00 99.5 96 20 129/70 95 02/16/17 16:00 98.3 92 20 134/72 94 02/16/17 15:35 87 16 109/58 100 Room Air 02/16/17 15:15 85 16 107/54 100 Nasal Cannula 2 02/16/17 15:03 98.4 89 16 107/52 100 Nasal Cannula 2 02/16/17 11:20 96.3 60 18 103/59 95 02/16/17 08:00 96.3 60 13 103/59 95 I/O 02/16/17 02/16/17 02/16/17 02/17/17 02/17/17 02/17/17 07:00 15:00 23:00 07:00 15:00 23:00 Intake Total 567 ml 1144 ml 120 ml Output Total 1600 ml 400 ml 650 ml 825 ml Balance -1033 ml -400 ml 494 ml -705 ml Intake Oral 240 ml 120 ml IV Total 567 ml 504 ml Other 400 ml Output Urine Total 1600 ml 400 ml 600 ml 825 ml Estimated Blood Loss 50 ml # Voids 1 # Bowel Movements 2 1 1 0 Result Diagram: 02/17/17 0350 02/17/17 0350 Objective Remarks GENERAL: patient lying in bed. alert and oriented 3. SKIN: Warm and dry. CARDIOVASCULAR: Regular rate and rhythm without murmurs, gallops, or rubs. RESPIRATORY: Breath sounds equal bilaterally. No accessory muscle use. CTAB. No adventitious sounds. GASTROINTESTINAL: Abdomen soft, generalized tenderness to moderate palpation. No rebound or guarding. : Prostate smooth, ~40cc in size. Non-tender to palpation. No nodules. MUSCULOSKELETAL: No cyanosis, or edema. BACK: Nontender without obvious deformity. No CVA tenderness. A/P Problem List: (1) Colitis ICD Code: K52.9 Status: Acute (2) GI bleed ICD Code: K92.2 Status: Acute (3) BPH (benign prostatic hyperplasia) ICD Code: N40.0 Status: Acute Assessment and Plan Mr. Taylor is a 61 year-old male with a history of hyperlipidemia, hypertension , arthritis, diabetes mellitus, PTSD, possible atrial fibrillation, and depression who presented complaining of left lower quadrant pain, bloody stools , chest pain. Colitis with GI bleeding. Infectious versus inflammatory, patient is immunosuppressed due to RA. Reviewed: Abdomen/pelvis CT shows mucosal edema involving the descending colon characteristic of infectious or inflammatory colitis. Hemoglobin 12.5 today. - Dilaudid 0.2 mg IV push every 4 hours as needed for pain - Monitor H&H, currently stable, transfuse if indicated - Protonix drip. Switch to protonix 40mg IV BID. - IV cipro + flagyl (02/14-) - GI consulted. Colonoscopy 02/16 consistent with ischemic colitis. Cleared for DC from GI standpoint. - Lactinex - Stool enteric path neg. Cryptosporidium and Giardia pending. Sepsis secondary to colitis - Tachycardia, tachypnea, leukocytosis. - Continue IV Cipro and Flagyl, as above - Blood cultures 02/15 NGTD Bladder distention, urinary hesitancy, pelvic pain - suspect secondary to dehydration Reviewed: ultrasound which showed no obstruction or bladder abnormalities. - Continue hydration BPH -Patient c/o weak urinary stream. Exam consistent with BPH. Trial on flomax. Monitor BPs closely. Atypical Chest pain, mild Reviewed: Troponin negative 3. EKG with NSR. Chest x-ray clear. Diabetes mellitus - Accuchecks q4h - Hypoglycemia protocol - ss insulin Mild hyponatremia/dehydration -Resolved with IVF. Continue to monitor. DVT prophylaxis - SCDs Problem Qualifiers (1) GI bleed: Qualified Code: K92.1 - Gastrointestinal hemorrhage with melena Daren Dior MD R3 February 17, 2017 07:53
[2017-02-17] MEDS: CIPROFLOXACIN 400 MG PREMIX 200 ML IV SCH ×2 (08:23→20:16)
[2017-02-17] MEDS: LACTOBACILLUS ACIDOPHILUS TAB PO SCH ×3 (08:23→17:06)
[2017-02-17] MEDS: SODIUM CHLORIDE 0.9% FLUSH 10 ML FLUSH IV FLUSH SCH ×2 (08:24→20:17)
[2017-02-17] MEDS ORDERED: TAMSULOSIN HCL 0.4 MG CAP PO ONE (09:15)
[2017-02-17] MEDS ORDERED: METOCLOPRAMIDE HCL 10 MG TAB PO PRN (10:00)
[2017-02-17] MEDS: PANTOPRAZOLE SODIUM 40 MG VIAL IV PUSH SCH ×2 (11:42→20:16)
--- NOTE | 2017-02-17 14:07 | HHI.GIFU ---
Subjective Remarks Patient states he had one bloody stools last night, non today. He denies N/V or abdomen pain. He feels lots of rumbling in the abd like he is about to have a BM. Objective Vitals I&O Vital Signs Date Time Temp Pulse Resp B/P Pulse Ox O2 Delivery O2 Flow Rate FiO2 02/17/17 10:35 95 02/17/17 08:00 98.0 81 18 110/64 95 02/17/17 04:00 97.8 84 18 91/54 96 02/17/17 00:00 98.4 88 20 107/60 96 02/16/17 21:34 94 Nasal Cannula 2.00 02/16/17 21:30 86 02/16/17 20:00 99.5 96 20 129/70 95 02/16/17 16:00 98.3 92 20 134/72 94 02/16/17 15:35 87 16 109/58 100 Room Air 02/16/17 15:15 85 16 107/54 100 Nasal Cannula 2 02/16/17 15:03 98.4 89 16 107/52 100 Nasal Cannula 2 I/O 02/16/17 02/16/17 02/16/17 02/17/17 02/17/17 02/17/17 07:00 15:00 23:00 07:00 15:00 23:00 Intake Total 567 ml 1144 ml 804 ml Output Total 1600 ml 400 ml 650 ml 825 ml Balance -1033 ml -400 ml 494 ml -21 ml Intake Oral 240 ml 120 ml IV Total 567 ml 504 ml 684 ml Other 400 ml Output Urine Total 1600 ml 400 ml 600 ml 825 ml Estimated Blood Loss 50 ml # Voids 1 # Bowel Movements 2 1 1 0 Laboratory Laboratory Tests Test 02/17/17 03:50 White Blood Count 7.4 Red Blood Count 4.08 Hemoglobin 12.5 Hematocrit 36.3 Mean Corpuscular Volume 88.9 Mean Corpuscular Hemoglobin 30.6 Mean Corpuscular Hemoglobin 34.4 Concent Red Cell Distribution Width 13.0 Platelet Count 148 Mean Platelet Volume 7.6 Neutrophils (%) (Auto) 67.2 Lymphocytes (%) (Auto) 21.5 Monocytes (%) (Auto) 9.5 Eosinophils (%) (Auto) 1.7 Basophils (%) (Auto) 0.1 Neutrophils # (Auto) 5.0 Lymphocytes # (Auto) 1.6 Monocytes # (Auto) 0.7 Eosinophils # (Auto) 0.1 Basophils # (Auto) 0.0 CBC Comment DIFF FINAL Differential Comment Sodium Level 138 Potassium Level 3.7 Chloride Level 104 Carbon Dioxide Level 27.1 Anion Gap 7 Blood Urea Nitrogen 6 Creatinine 0.95 Estimat Glomerular Filtration 97 Rate Random Glucose 199 Calcium Level 8.7 Phosphorus Level 2.2 Magnesium Level 2.1 Albumin 3.1 Date/Time Procedure Status Source Growth 02/15/17 12:32 Aerobic Blood Culture - Preliminary Resulted Blood Peripheral NO GROWTH IN 2 DAYS 02/15/17 12:32 Anaerobic Blood Culture - Preliminary Resulted Blood Peripheral NO GROWTH IN 2 DAYS 02/15/17 12:26 Cryptosporidium Exam - Final Complete Stool Stool NEGATIVE - NO CRYPTOSPORIDIUM ANTIGEN... 02/15/17 12:26 Giardia Antigen (AMARJIT) - Final Complete Stool Stool NEGATIVE - NO GIARDIA ANTIGEN DETECTE... 02/15/17 12:26 Stool Occult Blood (AMARJIT) - Final Complete Stool Stool HEMOCCULT POSITIVE 02/15/17 12:26 - Final Complete Stool Stool NO ENTERIC PATHOGENS DETECTED BY PCR... Imaging Last Impressions Abdomen/Pelvis CT 02/14/17 1738 Signed Impressions: Service Date/Time: Tuesday, February 14, 2017 18:43 - CONCLUSION: 1. Mucosal edema involving the descending colon characteristic of infectious or inflammatory colitis. There is no evidence of abscess. Can Lugo MD Renal Ultrasound 02/14/17 0000 Signed Impressions: Service Date/Time: Tuesday, February 14, 2017 21:46 - CONCLUSION: 1. Echogenic kidneys bilaterally compatible with medical renal disease. Can Lugo MD Chest X-Ray 02/14/17 0000 Signed Impressions: Service Date/Time: Tuesday, February 14, 2017 21:34 - CONCLUSION: 1. No acute cardiopulmonary disease. Can Lugo MD Physical Exam HEENT: normocephalic; atraumatic; no jaundice. NECK: Neck is supple, no JVD, no lymphadenopathy. CHEST: Chest is clear to auscultation and percussion. CARDIAC: Regular rate and rhythm with no murmur gallop or rubs. ABDOMEN: Soft, nondistended, nontender; no hepatosplenomegaly; bowel sounds are present in all four quadrants. EXTREMITIES: No clubbing, cyanosis, or edema. SKIN: Normal; no rash; no jaundice. 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 Assessment and Plan Plan ASSESSMENT - diarrhea, hematochezia, lower abd pain - Yesterday onset diarrhea with red blood, nausea, lower abd pain also spread to sides, has bloating. Has had lower abd pain for 3 y but bloody diarrhea is new. stool cx, c diff pending. Will do colonoscopy to r/o c diff 02/16 Colonoscopy shows colitis in watershed area consistent with ischemic colitis. Biopsy taken. Small incidental polyp. 02/17 one bloody episode last night, non today, hh trending up 12.5/36.3, stools negative for C-diff, stool cx negative PLAN - FAN - Recommend miralax and fiber daily, and to observe good bowels habits - If no more bleeding , okay to dc home from gi stand point - F/u with Gi in 2 weeks - GI will sign off - Patient seen and examined by Dr. Purdy and myself Tommy Balbuena February 17, 2017 14:07
--- NOTE | 2017-02-17 22:00 | MR ---
cc: JATINDER PURDY NICOLE A. DATE 02/16/17 PROCEDURE Colonoscopy with snare polypectomy with biopsy INDICATION Lower GI bleed with abdominal pain REFERRED PHYSICIAN Za Romero MD PROCEDURE IN DETAIL After informed consent was obtained, the patient was placed on the left side down position. He was sedated by the anesthesia service in operating room 2. After adequate sedation was achieved, a digital rectal examination was performed. The Pentax colonoscope was inserted in the anal canal, advanced to the colon reaching the terminal ileum. It was then slowly withdrawn examining the mucosal surfaces carefully. Biopsies were obtained in the transverse colon. There was some inflamed mucosa there. The scope was then further withdrawn to the descending colon and further biopsies were obtained there. The scope was then withdrawn through the remainder of the colon. At 18 cm there was a small polyp less than 1 cm in size removed with cold snare polypectomy and recovered through the scope. The scope was retroflexed in the rectus, was then straightened and pulled through the anal canal. The procedure was terminated. He tolerated the procedure well and was returned to the recovery area in good condition. FINDINGS 1. The terminal ileum was normal. 2. The cecum was normal. 3. The transverse colon contained some spotty colitis which was brightly erythematous and a few biopsies were taken. 4. In the descending and sigmoid colon there was more severe confluent colitis consistent with ischemia. Biopsies were taken from the descending colon. 5. In the rectum at 18 cm a small subcentimeter polyp was removed with cold snare polypectomy. 6. Large internal hemorrhoids were present with some localized inflammation. IMPRESSION 1. Probable ischemic colitis from constipation. No active bleeding is present at this time. 2. Small incidental polyp removed. RECOMMENDATION 1. Await the biopsy results. 2. Regular diet as tolerated and he may be discharged to home if he is tolerating food and is otherwise stable. 3. He should avoid constipation by taking Miralax, one dose every day until he can be followed up at GI clinic. Jatinder Purdy MD [facility]/ /3:10 PM /9:45 PM
[2017-02-18] VITALS: BP 118/69; PULSE 82; RESP 18; TEMP 98.1; O2SAT 95
[2017-02-18] MEDS: metroNIDAZOLE 500 MG INJ 100 ML IV SCH ×2 (01:22→05:41)
[2017-02-18] MEDS: DEXT 5%-NACL 0.45% 1000 ML INJ 1,000 ML IV SCH (01:37)
[2017-02-18 04:00] VITALS: BP 109/61; PULSE 84; RESP 18; TEMP 98.9; O2SAT 94
[2017-02-18] MEDS: INSULIN ASPART SUPPLEMENTAL SCALE SQ SCH (05:53)
--- NOTE | 2017-02-18 07:16 | HHI.PR ---
Subjective Remarks Patient seen and examined this morning vitals are stable and the patient is afebrile. Patient states he feels well and needs to go home. Is urinating well , states flomax helped a lot, wants to know if he can have a script because [facility]. Still with some diffuse abdominal tenderness, but overall is improving. He is tolerating his diet. Objective Vital Signs Date Time Temp Pulse Resp B/P Pulse Ox O2 Delivery O2 Flow Rate FiO2 02/18/17 04:00 98.9 84 18 109/61 94 02/18/17 00:00 98.1 82 18 118/69 95 02/17/17 20:00 98.0 86 18 111/68 95 02/17/17 16:00 97.4 76 18 115/72 97 02/17/17 12:00 98.2 83 16 119/69 93 02/17/17 10:35 95 02/17/17 08:00 98.0 81 18 110/64 95 I/O 02/17/17 02/17/17 02/17/17 02/18/17 02/18/17 02/18/17 07:00 15:00 23:00 07:00 15:00 23:00 Intake Total 804 ml 1411 ml 705 ml 120 ml Output Total 825 ml 600 ml 2300 ml 375 ml Balance -21 ml 811 ml -1595 ml -255 ml Intake Oral 120 ml 800 ml 360 ml 120 ml IV Total 684 ml 611 ml 345 ml Output Urine Total 825 ml 600 ml 2300 ml 375 ml # Bowel Movements 0 1 0 0 Result Diagram: 02/17/17 0350 02/17/17 0350 Imaging Last Impressions Abdomen/Pelvis CT 02/14/17 1738 Signed Impressions: Service Date/Time: Tuesday, February 14, 2017 18:43 - CONCLUSION: 1. Mucosal edema involving the descending colon characteristic of infectious or inflammatory colitis. There is no evidence of abscess. Can Lugo MD Renal Ultrasound 02/14/17 0000 Signed Impressions: Service Date/Time: Tuesday, February 14, 2017 21:46 - CONCLUSION: 1. Echogenic kidneys bilaterally compatible with medical renal disease. Can Lugo MD Chest X-Ray 02/14/17 0000 Signed Impressions: Service Date/Time: Tuesday, February 14, 2017 21:34 - CONCLUSION: 1. No acute cardiopulmonary disease. Can Lugo MD Objective Remarks GENERAL: patient lying in bed. alert and oriented 3. SKIN: Warm and dry. CARDIOVASCULAR: Regular rate and rhythm without murmurs, gallops, or rubs. RESPIRATORY: Breath sounds equal bilaterally. No accessory muscle use. CTAB. No adventitious sounds. GASTROINTESTINAL: Abdomen soft, generalized tenderness with mild palpation. No rebound or guarding. MUSCULOSKELETAL: No cyanosis, or edema. BACK: Nontender without obvious deformity. No CVA tenderness. A/P Problem List: (1) Colitis ICD Code: K52.9 (2) GI bleed ICD Code: K92.2 (3) BPH (benign prostatic hyperplasia) ICD Code: N40.0 Assessment and Plan Mr. Taylor is a 61 year-old male with a history of hyperlipidemia, hypertension , arthritis, diabetes mellitus, PTSD, possible atrial fibrillation, and depression who presented complaining of left lower quadrant pain, bloody stools , chest pain. Colitis with GI bleeding. Infectious versus inflammatory, patient is immunosuppressed due to RA. Reviewed: Abdomen/pelvis CT shows mucosal edema involving the descending colon characteristic of infectious or inflammatory colitis. Hemoglobin 12.5 today. - Dilaudid 0.2 mg IV push every 4 hours as needed for pain - Monitor H&H, currently stable, transfuse if indicated - Protonix drip. Switch to protonix 40mg IV BID. - IV cipro + flagyl (02/14-02/18) Patient is without F or leukocytosis, will d/c home without abx. - GI consulted. Colonoscopy 02/16 consistent with ischemic colitis. Cleared for DC from GI standpoint. - Lactinex - Stool enteric path neg. Cryptosporidium and Giardia negative. Sepsis secondary to colitis - Tachycardia, tachypnea, leukocytosis. - Continue IV Cipro and Flagyl, as above - Blood cultures 02/15 NGTD Bladder distention, urinary hesitancy, pelvic pain - suspect secondary to dehydration Reviewed: ultrasound which showed no obstruction or bladder abnormalities. - Continue hydration BPH -Patient c/o weak urinary stream. Exam consistent with BPH. Trial on flomax. Monitor BPs closely. Atypical Chest pain, mild Reviewed: Troponin negative 3. EKG with NSR. Chest x-ray clear. Diabetes mellitus - Accuchecks q4h - Hypoglycemia protocol - ss insulin Mild hyponatremia/dehydration -Resolved with IVF. Continue to monitor. DVT prophylaxis - SCDs Discharge Planning Patient has been cleared from GI. He is stable to discharge home with PCP and GI follow-up as an outpatient. Problem Qualifiers (1) GI bleed: Qualified Code: K92.1 - Gastrointestinal hemorrhage with melena Krys Martinez MD R3 February 18, 2017 07:16
[2017-02-18 07:44] LABS: POTASSIUM 3.9 MEQ/L (3.5-5.1)
[2017-02-18 08:00] VITALS: BP 133/58; PULSE 82; RESP 16; TEMP 97.6; O2SAT 94
[2017-02-18] MEDS ORDERED: PROT40TA PO (08:00)
--- NOTE | 2017-02-18 08:02 | HHI.DCPOC ---
Discharge Care Plan Diagnosis: (1) BPH (benign prostatic hyperplasia) (2) Colitis (3) GI bleed Goals to Promote Your Health * To prevent worsening of your condition and complications * To maintain your health at the optimal level Directions to Meet Your Goals Take your medications as prescribed Follow your dietary instruction Follow activity as directed Keep your appointments as scheduled Take your immunizations and boosters as scheduled If your symptoms worsen call your PCP, if no PCP go to Urgent Care Center or Emergency Room Smoking is Dangerous to Your Health. Avoid second hand smoke Call the 24-hour hour crisis hotline for domestic abuse at Krys Martinez MD R3 February 18, 2017 08:02
[2017-02-18] MEDS ORDERED: TAMS5CAP PO (08:37)
[2017-02-18 11:19] LABS: AUTOMATED NEUTROPHIL # 3.7 TH/MM3 (1.8-7.7); BASOPHIL % 0.6 % (0.0-2.0); EOSINOPHIL # 0.1 TH/MM3 (0-0.4); EOSINOPHIL % 2.5 % (0.0-4.0); HEMATOCRIT 38.3 % (39.0-51.0); HEMO FLAGS DIFF FINAL; LYMPH % 21.9 % (9.0-44.0); LYMPHOCYTE # 1.3 TH/MM3 (1.0-4.8); MEAN CORPUSCULAR HGB CONC 33.3 % (32.0-36.0); PLATELET COUNT 178 TH/MM3 (150-450); RED BLOOD COUNT 4.25 MIL/MM3 (4.50-5.90); RED CELL DISTRIBUTION WIDTH 13.3 % (11.6-17.2); WHITE BLOOD COUNT 5.7 TH/MM3 (4.0-11.0)
--- NOTE | 2017-03-01 09:28 | HHI.DS ---
Discharge Summary Admission Date February 14, 2017 at 19:24 Discharge Date: February 18, 2017 Admitting Diagnosis Colitis, GI bleeding . Consultants GI Imaging Last Impressions Abdomen/Pelvis CT 02/14/17 1738 Signed Impressions: Service Date/Time: Tuesday, February 14, 2017 18:43 - CONCLUSION: 1. Mucosal edema involving the descending colon characteristic of infectious or inflammatory colitis. There is no evidence of abscess. Can Lugo MD Renal Ultrasound 02/14/17 0000 Signed Impressions: Service Date/Time: Tuesday, February 14, 2017 21:46 - CONCLUSION: 1. Echogenic kidneys bilaterally compatible with medical renal disease. Can Lugo MD Chest X-Ray 02/14/17 0000 Signed Impressions: Service Date/Time: Tuesday, February 14, 2017 21:34 - CONCLUSION: 1. No acute cardiopulmonary disease. Can Lugo MD Hospital Course 61 yo male admitted with colitis with GI bleed. I was consulted, colonoscopy was consistent with ischemic colitis. The patient was treated with Cipro and Flagyl. He symptomatically improved, hemoglobin stable, stool cultures negative. He was discharged home with GI follow-up and by mouth Protonix. Pt Condition on Discharge: Stable Discharge Disposition: Discharge Home Discharge Instructions DIET: Follow Instructions for: Heart Healthy Diet, Diabetic Diet, High Fiber Diet Activities you can perform: Weight Bearing as Loren Follow up Referrals: Gastroenterology - 1 Week with Supa Fields MD PCP Follow-up - 1 Week New Medications: Pantoprazole (Protonix) 40 Mg Tab 40 MG PO DAILY Reflux #30 Ref 0 TAB Tamsulosin (Flomax) 0.4 Mg Cap 0.4 MG PO HS Manage Prostate Problems #30 Ref 0 CAP Continued Medications: Insulin Aspart Inj (Novolog Inj) 1,000 Unit/10 Ml Vial 0 SQ DIRECTED Sliding Scale as directed. Blood Sugar Management #10 Ref 0 ML Insulin Human Regular Inj (Novolin R Inj) 1,000 Unit/10 Ml Vial 0 SQ DIRECTED Sliding Scale As Directed. Blood Sugar Management #10 Ref 0 ML Methotrexate (Methotrexate) 2.5 Mg Tab 2.5 MG PO Q7D Ref 0 TAB Krys Martinez MD R3 Mar 01, 2017 09:28
== END 2017-02-18 09:43 | disposition home or self-care (01) | DRG 378 ==
LOC: NEDAMB 17:07 → NEDA 19:24 → OBSVTOIN 19:24 → NEPGCP 21:35 → N07A 02-15 20:57
PROVIDERS: ADMIT Family Medicine; ATTEND Family Medicine
PROC: 0DBM8ZX Excision of Descending Colon, Via Natural or Artificial Opening Endoscopic, Diagnostic (ICD-10-PCS; 2017-02-16)
PROC: 0DBP8ZZ Excision of Rectum, Via Natural or Artificial Opening Endoscopic (ICD-10-PCS; principal; 2017-02-16 14:20)
DX: K92.1 Melena (principal); A09 Infectious gastroenteritis and colitis, unspecified; K55.9 Vascular disorder of intestine, unspecified; I48.91 Unspecified atrial fibrillation; E87.1 Hypo-osmolality and hyponatremia; N32.89 Other specified disorders of bladder; I10 Essential (primary) hypertension; E86.0 Dehydration; E78.5 Hyperlipidemia, unspecified; E11.9 Type 2 diabetes mellitus without complications; F43.10 Post-traumatic stress disorder, unspecified; F32.9 Major depressive disorder, single episode, unspecified; M19.90 Unspecified osteoarthritis, unspecified site; R39.11 Hesitancy of micturition; R07.89 Other chest pain; Z79.4 Long term (current) use of insulin; K64.8 Other hemorrhoids; K62.1 Rectal polyp; K59.00 Constipation, unspecified; E87.6 Hypokalemia; N40.0 Benign prostatic hyperplasia without lower urinary tract symptoms
CPT/HCPCS: 71010; 74177; 76775; 80048; 80053; 80069; 82272; 82550; 82948; 83690; 83735; 84484; 85014; 85018; 85025; 85610; 85730; 86850; 86900; 86901; 87040; 87328; 87329; 87493; 87506; 88305; 93005; 96361; 96372; 96374; 96375; C9113; J0744; J1170; J1815; J2250; J2370; J2405; J7030; Q9967

== ENCOUNTER 2017-12-31 08:38 | Inpatient (IN) | payer OTHER ==
[2017-12-31] VITALS (10 sets, daily range): BP systolic 118–152; BP diastolic 61–83; PULSE 80–104; RESP 17–20; TEMP 98.7–100.2; O2SAT 94–98
[~2017-12-31] VITALS: Ht 175.3 cm; Wt 70.0 kg
[~2017-12-31 08:38] MED LIST changes: -HUMU70IN SQ; +METH2.5T PO; +NOVOLOGP2 SQ; +NOVORP2 SQ; +PROT40TA PO; +TAMS5CAP PO; -VITA100020 PO; -VITA400C58 PO; -VITA50TA30 PO
[2017-12-31] MEDS ORDERED: SODIUM CHLOR 0.9% 1000 ML INJ 1,000 ML IV SCH (08:57)
[2017-12-31] MEDS ORDERED: METH2.5T PO (08:57)
[2017-12-31] MEDS ORDERED: HUMI40KI SQ (08:57)
[2017-12-31] MEDS ORDERED: MORPHINE SULFATE 2 MG/ML SYRINGE IV PUSH ONE ×2 (09:00→11:00)
[2017-12-31] MEDS ORDERED: SODIUM CHLORIDE 0.9% FLUSH 10 ML FLUSH IV FLUSH PRN ×2 (09:00→11:30)
--- NOTE | 2017-12-31 09:04 | PD ---
HPI Chief Complaint: Abdominal Pain Time Seen by Provider: 08:51 Travel History International Travel<30 days: No Contact w/Intl Traveler<30days: No Traveled to known affect area: No History of Present Illness HPI 62-year-old male with history of rheumatoid arthritis on Humira and methotrexate , here for evaluation of abdominal pain and hematochezia. Symptoms started 3 days ago. Abdominal pain is lower, severe, constant, worse with movements and palpation. History of appendectomy. Patient has also had history of ischemic colitis last year. PFSH Past Medical History Hx Anticoagulant Therapy: Yes Arthritis: Yes Asthma: No Atrial Fibrillation: Yes Depression: Yes Heart Rhythm Problems: Yes (afib ) Cardiac Catheterization: Yes (1996) Cardiovascular Problems: Yes High Cholesterol: Yes Congestive Heart Failure: No COPD: No Diabetes: Yes Patient Takes Glucophage: No Diminished Hearing: No Genitourinary: No Hypertension: Yes Neurologic: No Psychiatric: Yes (PTSD) Reproductive: No Respiratory: No Tetanus Vaccination: < 5 Years Influenza Vaccination: Yes ?: Not Past Surgical History Appendectomy: Yes Other Surgery: Yes (L1,L2,C5,C6 laminectomies w/ plates and screw ) Family History Family Myocardial Infarction: Yes (father of MA) Social History Alcohol Use: No Tobacco Use: No Substance Use: No Allergies-Medications (Allergen,Severity, Reaction): Coded Allergies: atorvastatin (Unverified Allergy, Severe, JOINT PAIN, 05/15/17) gabapentin (Unverified Allergy, Severe, 05/15/17) duloxetine (Unverified Allergy, Intermediate, RASH AND HIVES, 05/15/17) Reported Meds & Prescriptions Reported Meds & Active Scripts Active Flomax (Tamsulosin HCl) 0.4 Mg Cap 0.4 Mg PO HS Protonix (Pantoprazole Sodium) 40 Mg Tab 40 Mg PO DAILY Reported Humira 2-Pack Inj (Adalimumab 2-Pack Inj) 40 Mg/0.8 Ml Syr 40 Mg SQ Q14D Methotrexate 2.5 Mg Tab 9 Mg PO Q7D Novolin R Inj (Insulin Human Regular) 1,000 Unit/10 Ml Vial 0 SQ DIRECTED Sliding Scale As Directed. Novolog Inj (Insulin Aspart) 1,000 Unit/10 Ml Vial 0 SQ DIRECTED Sliding Scale as directed. Review of Systems Except as stated in HPI: all other systems reviewed are Neg Physical Exam Narrative GENERAL: Well-developed, well-nourished, no apparent distress. SKIN: Focused skin assessment warm/dry. HEAD: Atraumatic. Normocephalic. EYES: Pupils equal and round. No scleral icterus. No injection or drainage. ENT: Mucous membranes pink and moist. NECK: Trachea midline. No JVD. CARDIOVASCULAR: No murmur appreciated. RESPIRATORY: No accessory muscle use. Clear to auscultation. Breath sounds equal bilaterally. GASTROINTESTINAL: Abdomen soft, nondistended. Moderate diffuse tenderness without peritoneal signs. RECTUM: No masses, no fissures, no hemorrhoids, heme positive brown stool. MUSCULOSKELETAL: No obvious deformities. No clubbing. No cyanosis. No edema. NEUROLOGICAL: Awake and alert. No obvious cranial nerve deficits. Motor grossly within normal limits. Normal speech. PSYCHIATRIC: Appropriate mood and affect; insight and judgment normal. Data Data Last Documented VS Vital Signs Date Time Temp Pulse Resp B/P (MAP) Pulse Ox O2 Delivery O2 Flow Rate FiO2 12/31/17 09:00 98 Room Air 12/31/17 08:51 18 12/31/17 08:51 99.3 85 Orders Orders Complete Blood Count With Diff (12/31/17 08:57) Comprehensive Metabolic Panel (12/31/17 08:57) Lipase (12/31/17 08:57) Lactic Acid (12/31/17 08:57) Prothrombin Time / Inr (Pt) (12/31/17 08:57) Act Partial Throm Time (Ptt) (12/31/17 08:57) Urinalysis - C+S If Indicated (12/31/17 08:57) Ct Abd/Pel W Iv Contrast(Rout) (12/31/17 08:57) Iv Access Insert/Monitor (12/31/17 08:57) Ecg Monitoring (12/31/17 08:57) Oximetry (12/31/17 08:57) Sodium Chlor 0.9% 1000 Ml Inj (Ns 1000 M (12/31/17 08:57) Sodium Chloride 0.9% Flush (Ns Flush) (12/31/17 09:00) Morphine Inj (Morphine Inj) (12/31/17 09:00) Iohexol 350 Inj (Omnipaque 350 Inj) (12/31/17 10:10) Ciprofloxacin 400 Mg Premix (Cipro 400 M (12/31/17 11:00) Metronidazole 500 Mg Inj (Flagyl 500 Mg (12/31/17 11:00) Morphine Inj (Morphine Inj) (12/31/17 11:00) Sodium Chlor 0.9% 1000 Ml Inj (Ns 1000 M (12/31/17 11:00) Labs Laboratory Tests Test 12/31/17 09:05 White Blood Count 9.2 TH/MM3 Red Blood Count 4.55 MIL/MM3 Hemoglobin 14.1 GM/DL Hematocrit 42.8 % Mean Corpuscular Volume 94.0 FL Mean Corpuscular Hemoglobin 31.1 PG Mean Corpuscular Hemoglobin Concent 33.1 % Red Cell Distribution Width 15.5 % Platelet Count 169 TH/MM3 Mean Platelet Volume 8.0 FL Neutrophils (%) (Auto) 72.9 % Lymphocytes (%) (Auto) 17.4 % Monocytes (%) (Auto) 9.3 % Eosinophils (%) (Auto) 0.2 % Basophils (%) (Auto) 0.2 % Neutrophils # (Auto) 6.7 TH/MM3 Lymphocytes # (Auto) 1.6 TH/MM3 Monocytes # (Auto) 0.9 TH/MM3 Eosinophils # (Auto) 0.0 TH/MM3 Basophils # (Auto) 0.0 TH/MM3 CBC Comment AUTO DIFF Differential Total Cells Counted 100 Neutrophils % (Manual) 73 % Band Neutrophils % 11 % Lymphocytes % 13 % Monocytes % 3 % Neutrophils # (Manual) 7.7 TH/MM3 Differential Comment FINAL DIFF MANUAL Dohle Bodies PRESENT Platelet Estimate NORMAL Platelet Morphology Comment NORMAL Prothrombin Time 11.4 SEC Prothromb Time International Ratio 1.1 RATIO Activated Partial Thromboplast Time 26.6 SEC Blood Urea Nitrogen 9 MG/DL Creatinine 0.92 MG/DL Random Glucose 116 MG/DL Total Protein 7.1 GM/DL Albumin 3.2 GM/DL Calcium Level 8.6 MG/DL Alkaline Phosphatase 45 U/L Aspartate Amino Transf (AST/SGOT) 14 U/L Alanine Aminotransferase (ALT/SGPT) 20 U/L Total Bilirubin 1.3 MG/DL Sodium Level 135 MEQ/L Potassium Level 4.1 MEQ/L Chloride Level 104 MEQ/L Carbon Dioxide Level 21.3 MEQ/L Anion Gap 10 MEQ/L Estimat Glomerular Filtration Rate 100 ML/MIN Lactic Acid Level 1.3 mmol/L Lipase 69 U/L [facility] Medical Decision Making Medical Screen Exam Complete: Yes Emergency Medical Condition: Yes Differential Diagnosis Ischemic colitis, colitis, diverticulitis, GI bleed, anemia Narrative Course Vital signs show heart rate 86, blood pressure 151/83, pulse ox 96% on room air , oral temperature 99.3F. CBC: WBC 9.2, hemoglobin 14.1, hematocrit 42.3, platelets 169, neutrophils 73%, band neutrophils 11%. CMP is unremarkable. Lipase is 69. Lactic acid is 1.3. CT abdomen pelvis: CONCLUSION: 1. Normal segment of colon involving transverse colon and proximal descending colon, characterized by mild wall thickening and induration of the fat surrounding the involved segment. Differential considerations include infection , ischemia and inflammatory bowel disease. 2. There is a mild to moderate amount of free fluid in the right lower quadrant and dependent pelvis. Patient was made aware of all findings. He continues to complain of pain despite receiving 4 mg of IV morphine. Chart review shows that he was admitted last year with similar CT findings and was evaluated by GI and had a colonoscopy with biopsy performed that showed ischemic colitis. His symptoms improved with Cipro and Flagyl at that time. He will be started on Cipro and Flagyl today, and because of ongoing pain as well as bandemia, will be admitted for further treatment and evaluation. Case discussed with hospitalist Dr. Thakur who will admit the patient to her service. Diagnosis Primary Impression: Colitis Additional Impressions: Intractable abdominal pain Bandemia Admitting Information Admitting Physician Requests: Vinecnt Keenan MD Dec 31, 2017 09:04
[2017-12-31 09:27] LABS: AUTOMATED NEUTROPHIL # 6.7 TH/MM3 (1.8-7.7); BASOPHIL % 0.2 % (0.0-2.0); EOSINOPHIL % 0.2 % (0.0-4.0); HEMATOCRIT 42.8 % (39.0-51.0); HEMOGLOBIN 14.1 GM/DL (13.0-17.0); LYMPH % 17.4 % (9.0-44.0); LYMPHOCYTE # 1.6 TH/MM3 (1.0-4.8); MEAN CORPUSCULAR HEMOGLOBIN 31.1 PG (27.0-34.0); MEAN CORPUSCULAR HGB CONC 33.1 % (32.0-36.0); MONO % 9.3 % (0.0-8.0); MONOCYTE # 0.9 TH/MM3 (0-0.9); NEUT % 72.9 % (16.0-70.0); PLATELET COUNT 169 TH/MM3 (150-450); RED BLOOD COUNT 4.55 MIL/MM3 (4.50-5.90); RED CELL DISTRIBUTION WIDTH 15.5 % (11.6-17.2); WHITE BLOOD COUNT 9.2 TH/MM3 (4.0-11.0)
[2017-12-31 09:35] LABS: INTERNATIONAL NORMALIZED RATIO 1.1 RATIO; PROTHROMBIN TIME - PATIENT 11.4 SEC (9.8-11.6)
[2017-12-31 09:42] LABS: ALBUMIN 3.2 GM/DL (3.4-5.0); AST (GOT) 14 U/L (15-37); BICARBONATE 21.3 MEQ/L (21.0-32.0); BLOOD UREA NITROGEN 9 MG/DL (7-18); CALCIUM 8.6 MG/DL (8.5-10.1); CHLORIDE 104 MEQ/L (98-107); CREATININE 0.92 MG/DL (0.60-1.30); GLOMERULAR FILTRATION RATE 100 ML/MIN (>89); GLUCOSE,RANDOM 116 MG/DL (74-106); SODIUM (NA) 135 MEQ/L (136-145)
[2017-12-31 09:43] LABS: ALT (GPT) 20 U/L (12-78)
[2017-12-31 09:45] LABS: ALKALINE PHOSPHATASE 45 U/L (45-117); TOTAL BILIRUBIN ADULT 1.3 MG/DL (0.2-1.0); TOTAL PROTEIN 7.1 GM/DL (6.4-8.2)
[2017-12-31 10:06] LABS: BANDS 11 % (0-6); DOHLE BODIES PRESENT (NONE SEEN); LYMPHOCYTES 13 % (9-44); MONOCYTES 3 % (0-8); NEUTROPHIL # MANUAL DIFF 7.7 TH/MM3 (1.8-7.7); POLYS (SEG NEUTROPHILS) 73 % (16-70)
[2017-12-31] MEDS ORDERED: IOHEXOL 350 MG/ML 10 ML VIAL (for RAD DIAG) IVCONTRAST ONE (10:10)
--- NOTE | 2017-12-31 10:18 | RADRPT ---
EXAM DATE/TIME: 12/31/2017 10:03 [facility] COMPARISON: CT ABDOMEN & PELVIS W CONTRAST, February 14, 2017, 18:43. INDICATIONS : Abdominal pain IV CONTRAST: 95 cc Omnipaque 350 (iohexol) IV ORAL CONTRAST: No oral contrast ingested. RADIATION DOSE: 5.95 CTDIvol (mGy) MEDICAL HISTORY : Cardiovascular disease. Hypertension. Diabetes SURGICAL HISTORY : Appendectomy. Laminectomy ENCOUNTER: Initial ACUITY: 4 - 6 days PAIN SCALE: 10/10 LOCATION: Bilateral lower quadrant TECHNIQUE: Volumetric scanning of the abdomen and pelvis was performed. Using automated exposure control and ad justment of the mA and/or kV according to patient size, radiation dose was kept as low as reasonably achievable to obtain optimal diagnostic quality images. DICOM format image data is available electro nically for review and comparison. FINDINGS: LOWER LUNGS: The visualized lower lungs are clear. LIVER: Homogeneous density without lesion. There is no dilation of the biliary tree. No calcified gallston es. SPLEEN: Normal size without lesion. PANCREAS: Within normal limits. KIDNEYS: Normal in size and shape. There is no mass, stone or hydronephrosis. ADRENAL GLANDS: Within normal limits. VASCULAR: There is no aortic aneurysm. BOWEL/MESENTERY: No dilated loops of small or large bowel. There is an abnormal appearance to the transverse colon an d proximal descending colon 5 mild concentric wall thickening and induration of the fat about the affected segment. No luminal n arrowing seen. There is moderate free fluid tracking up the right lower quadrant inferior to the cec um and a small amount of free fluid in the dependent pelvis. ABDOMINAL WALL: Within normal limits. RETROPERITONEUM: There is no lymphadenopathy. BLADDER: No wall thickening or mass. REPRODUCTIVE: Within normal limits. INGUINAL: There is no lymphadenopathy or hernia. MUSCULOSKELETAL: Within normal limits for patient age. CONCLUSION: 1. Normal segment of colon involving transverse colon and proximal descending colon, characterized by mild wall thickening and induration of the fat surrounding the involved segment. Differential consi derations include infection, ischemia and inflammatory bowel disease. 2. There is a mild to moderate amount of free fluid in the right lower quadrant and dependent pelvis. Juan Pablo Osei MD on December 31, 2017 at 10:11 Board Certified Radiologist. This report was verified electronically.
[2017-12-31] MEDS ORDERED: metroNIDAZOLE 500 MG INJ 100 ML IV ONE (11:00)
[2017-12-31] MEDS ORDERED: SODIUM CHLOR 0.9% 1000 ML INJ 1,000 ML IV ONE (11:00)
[2017-12-31] MEDS ORDERED: CIPROFLOXACIN 400 MG PREMIX 200 ML IV ONE (11:00)
[2017-12-31] MEDS ORDERED: DEXTROSE 50% IN WATER 50 ML VIAL(D50) IV PUSH PRN (11:30)
[2017-12-31] MEDS ORDERED: NALOXONE HCL 0.4 MG/ML AMP IV PUSH PRN (11:30)
[2017-12-31] MEDS ORDERED: GLUCAGON 1 MG/ML VIAL OTHER PRN (11:30)
[2017-12-31] MEDS ORDERED: DEXT 5%-NACL 0.45% 1000 ML INJ 1,000 ML IV SCH (12:00)
--- NOTE | 2017-12-31 12:41 | HHI.HP ---
HPI Service [facility] Primary Care Physician [facility] Admission Diagnosis Colitis, intractable abdominal pain, bandemia Diagnoses: Travel History International Travel<30 Days: No Contact w/Intl Traveler <30 Da: No Traveled to Known Affected Are: No History of Present Illness History from patient, ER physician communication, and review of medical records. Patient is known to me from his prior hospitalization in January 2017. He reported that this time as well, he had similar symptoms. He reports starting , about 4 days ago, he started having abdominal pain with bright red blood per rectum. The pain and the symptoms were getting worse over the weekend and was not improving to the point that he was mostly in pain and had to pretty much crawling around his apartment because of these episodes. He had his home care nurse visiting him this morning and when she found him this way, , weight, he is to call 911. Patient reports of nausea. But did not vomit. Denies fever. Patient is on immunosuppressants at home for severe rheumatoid arthritis. He took his last dose of methotrexate on and Humira on Sunday. Review of Systems Except as stated in HPI: all other systems reviewed are Neg Past Family Social History Past Medical History Hyperlipidemia no hx of htn- takes antihypertensives for primary renal protection in diabetic Rheumatoid Arthritis Gouty Arthritis Osteoarthritis Diabetes mellitus PTSD Depression ?Atrial fibrillation? . Past Surgical History Cardiac catheterization Appendectomy L1 - 2 laminectomy C5 - C6 laminectomy with plates and screws Hemorrhoidectomy in [place], [place] 1979 . Allergies: Coded Allergies: atorvastatin (Unverified Allergy, Severe, JOINT PAIN, 05/15/17) gabapentin (Unverified Allergy, Severe, 05/15/17) duloxetine (Unverified Allergy, Intermediate, RASH AND HIVES, 05/15/17) Family History Sister with diverticulitis Sister with diabetes mellitus . Social History Smoking/alcohol and drug abuse. Lives by himself. Has home health care nurse coming to check on him 4 times a week 3 hours time. Physical Exam Vital Signs Vital Signs Date Time Temp Pulse Resp B/P (MAP) Pulse Ox O2 Delivery O2 Flow Rate FiO2 12/31/17 09:00 98 Room Air 12/31/17 08:51 18 12/31/17 08:51 99.3 85 18 151/83 (105) 96 Room Air 12/31/17 08:45 99.3 86 18 151/83 (105) 95 Physical Exam GENERAL: This is a well-nourished, well-developed patient, in no apparent distress. SKIN: No rashes, ecchymoses or lesions. Cool and dry. HEAD: Atraumatic. Normocephalic. No temporal or scalp tenderness. EYES. No scleral icterus. No injection or drainage. ENT: Nose without bleeding, purulent drainage or septal hematoma. Airway patent. NECK: Trachea midline. No JVD Supple, nontender, no meningeal signs. CARDIOVASCULAR: Regular rate and rhythm without murmurs, gallops, or rubs. RESPIRATORY: Clear to auscultation. Breath sounds equal bilaterally. No wheezes , rales, or rhonchi. GASTROINTESTINAL: Abdomen soft, non-tender, nondistended. No hepato-splenomegaly , or palpable masses. No guarding. MUSCULOSKELETAL: Extremities without clubbing, cyanosis, or edemaNo calf tenderness. NEUROLOGICAL: Awake and alert. Motor and sensory grossly within normal limits. Normal speech. Laboratory Laboratory Tests Test 12/31/17 09:05 White Blood Count 9.2 Red Blood Count 4.55 Hemoglobin 14.1 Hematocrit 42.8 Mean Corpuscular Volume 94.0 Mean Corpuscular Hemoglobin 31.1 Mean Corpuscular Hemoglobin Concent 33.1 Red Cell Distribution Width 15.5 Platelet Count 169 Mean Platelet Volume 8.0 Neutrophils (%) (Auto) 72.9 Lymphocytes (%) (Auto) 17.4 Monocytes (%) (Auto) 9.3 Eosinophils (%) (Auto) 0.2 Basophils (%) (Auto) 0.2 Neutrophils # (Auto) 6.7 Lymphocytes # (Auto) 1.6 Monocytes # (Auto) 0.9 Eosinophils # (Auto) 0.0 Basophils # (Auto) 0.0 CBC Comment AUTO DIFF Differential Total Cells Counted 100 Neutrophils % (Manual) 73 Band Neutrophils % 11 Lymphocytes % 13 Monocytes % 3 Neutrophils # (Manual) 7.7 Differential Comment FINAL DIFF MANUAL Dohle Bodies PRESENT Platelet Estimate NORMAL Platelet Morphology Comment NORMAL Prothrombin Time 11.4 Prothromb Time International Ratio 1.1 Activated Partial Thromboplast Time 26.6 Blood Urea Nitrogen 9 Creatinine 0.92 Random Glucose 116 Total Protein 7.1 Albumin 3.2 Calcium Level 8.6 Alkaline Phosphatase 45 Aspartate Amino Transf (AST/SGOT) 14 Alanine Aminotransferase (ALT/SGPT) 20 Total Bilirubin 1.3 Sodium Level 135 Potassium Level 4.1 Chloride Level 104 Carbon Dioxide Level 21.3 Anion Gap 10 Estimat Glomerular Filtration Rate 100 Lactic Acid Level 1.3 Lipase 69 Result Diagram: 12/31/1790412/31/17904 Imaging Last 48 hours Impressions Abdomen/Pelvis CT 12/31/17 0857 Signed Impressions: Service Date/Time: Sunday, December 31, 2017 10:03 - CONCLUSION: 1. Normal segment of colon involving transverse colon and proximal descending colon, characterized by mild wall thickening and induration of the fat surrounding the involved segment. Differential considerations include infection, ischemia and inflammatory bowel disease. 2. There is a mild to moderate amount of free fluid in the right lower quadrant and dependent pelvis. Juan Pablo Osei MD Caprini VTE Risk Assessment Caprini VTE Risk Assessment: Mod/High Risk (score >= 2) Caprini Risk Assessment Model Point Value = 1 Point Value = 2 Point Value = 3 Point Value = 5 Age 41-60 Minor surgery BMI > 25 kg/m2 Swollen legs Varicose veins or History of unexplained or recurrent spontaneous Oral contraceptives or hormone replacement Sepsis (< 1 month) Serious lung disease, including pneumonia (< 1 month) Abnormal pulmonary function Acute myocardial infarction Congestive heart failure (< 1 month) History of inflammatory bowel disease Medical patient at bed rest Age 61-74 Arthroscopic surgery Major open surgery (> 45 min) Laparoscopic surgery (> 45 min) Malignancy Confined to bed (> 72 hours) Immobilizing plaster cast Central venous access Age >= 75 History of VTE Family history of VTE Factor V Leiden Prothrombin [id number] Lupus anticoagulant Anticardiolipin antibodies Elevated serum homocysteine Heparin-induced thrombocytopenia Other congenital or acquired thrombophilia Stroke (< 1 month) Elective arthroplasty Hip, pelvis, or leg fracture Acute spinal cord injury (< 1 month) Prophylaxis Regimen Total Risk Factor Score Risk Level Prophylaxis Regimen 0-1 Low Early ambulation 2 Moderate Order ONE of the following: *Sequential Compression Device (SCD) *Heparin 5000 units SQ BID 3-4 Higher Order ONE of the following medications: *Heparin 5000 units SQ TID *Enoxaparin/Lovenox 40 mg SQ daily (WT < 150 kg, CrCl > 30 mL/min) *Enoxaparin/Lovenox 30 mg SQ daily (WT < 150 kg, CrCl > 10-29 mL/min) *Enoxaparin/Lovenox 30 mg SQ BID (WT < 150 kg, CrCl > 30 mL/min) AND/OR *Sequential Compression Device (SCD) 5 or more Highest Order ONE of the following medications: *Heparin 5000 units SQ TID (Preferred with Epidurals) *Enoxaparin/Lovenox 40 mg SQ daily (WT < 150 kg, CrCl > 30 mL/min) *Enoxaparin/Lovenox 30 mg SQ daily (WT < 150 kg, CrCl > 10-29 mL/min) *Enoxaparin/Lovenox 30 mg SQ BID (WT < 150 kg, CrCl > 30 mL/min) AND *Sequential Compression Device (SCD) Assessment and Plan Assessment and Plan Impression: Ischemic colitis versus infectious colitis. Bandemia Immunocompromised state on Humira and methotrexate Suspects underlying A. fib causing ischemic bowel. This is the second time. Hyperlipidemia no hx of htn- takes antihypertensives for primary renal protection in diabetic Rheumatoid Arthritis Gouty Arthritis Osteoarthritis Diabetes mellitus PTSD Depression ?Atrial fibrillation? . Plan: Aggressive IV hydration. Normal saline at 100 cc per hour. Also run D5 normal saline at 42 cc per hour concomitantly. Monitor fingersticks every 4 hours. For now, no sliding scale coverage yet until we know blood sugar levels. Patient received Cipro and Flagyl IV in ER. We'll continue Cipro 400 with grams IV every 12 hours. Continue Flagyl 500 mg IV every 6 hours. Serial hemoglobin and hematocrit. Type and screen. GI consult. General surgery consult as this is his second time. Telemetry monitoring. Also would consult cardiology for possible loop recorder placement since this patient is having ischemic bowel episodes. He also reports of prior history of or feeling of palpitations and tachycardia. Question whether he has underlying A. fib. Resume rest of his home medications. DVT prophylaxis with SCD. GI prophylaxis on pantoprazole. Discussed Condition With Patient, ER physician, nursing staff Physician Certification 2 Midnight Certification Type: Admission for Inpatient Services Order for Inpatient Services The services are ordered in accordance with Medicare regulations or non- Medicare payer requirements, as applicable. In the case of services not specified as inpatient-only, they are appropriately provided as inpatient services in accordance with the 2-midnight benchmark. Estimated LOS (days): 2 days is the estimated time the patient will need to remain in the hospital, assuming treatment plan goals are met and no additional complications. Post-Hospital Plan: Home Angel Thakur MD Dec 31, 2017 12:41
[2017-12-31] MEDS: SODIUM CHLOR 0.9% 1000 ML INJ 1,000 ML IV SCH ×2 (13:01→22:04)
--- NOTE | 2017-12-31 14:12 | PD.CONS ---
HPI History of Present Illness This is a 62 year old M with PMH significant for arthritis on immunosuppressants , DM, hyperlipidemia, gout, and ischemic colitis. Pt presented to the ER earlier today with complaints of abdominal pain and rectal bleeding that began on Sunday. Pt is known to our service and had a colonoscopy in January for similar symptoms, exam revealed --> Transverse colon contained some spotty colitis which was brightly erythematous. Descending and sigmoid colon was more severe confluent colitis consistent with ischemia. Small subcentimeter polyp in the rectum. Large internal hemorrhoids with some localized inflammation. Pathology consistent with ischemic colitis. Pt states after discharge he continued to have intermittent abdominal pain and rectal bleeding but never too severe. Followed up with [facility] who added Metamucil but nothing else. Pt reports he came in today because abdominal pain has been increasing in intensity to the point he was crawling on his knees earlier today. Pain is diffuse, intermittent , associated with moving, eating, and BMs. Also noticed some abdominal distention. Complaints of multiple episodes of BRBPR, constant since Sunday. States was told in the past to take Cipro and Flagyl when he has these symptoms so he started them this morning. Pt reports some nausea, denies emesis. Denies ETOH, smoking, drug use. (Zaria Atkinson) PFSH Past Medical History Hyperlipidemia no hx of htn- takes antihypertensives for primary renal protection in diabetic Rheumatoid Arthritis Gouty Arthritis Osteoarthritis Diabetes mellitus PTSD Depression ?Atrial fibrillation? . Past Surgical History Cardiac catheterization Appendectomy L1 - 2 laminectomy C5 - C6 laminectomy with plates and screws Hemorrhoidectomy in [place], [place] 1979 Colonoscopy . (Zaria Atkinson) Coded Allergies: atorvastatin (Unverified Allergy, Severe, JOINT PAIN, 05/15/17) gabapentin (Unverified Allergy, Severe, 05/15/17) duloxetine (Unverified Allergy, Intermediate, RASH AND HIVES, 05/15/17) Social History Denies ETOH Denies smoking Denies illicit drug use (Zaria Atkinson) Review of Systems Gastrointestinal: COMPLAINS OF: Abdominal pain, Bloody stools, Diarrhea, Nausea , Swelling of Abdomen, DENIES: Black stools, Constipation, Vomiting, Difficulty Swallowing, Odynophagia, Heartburn, Hematemesis (Zaria Atkinson) GI Exam Vitals I&O Vital Signs Date Time Temp Pulse Resp B/P (MAP) Pulse Ox O2 Delivery O2 Flow Rate FiO2 12/31/17 13:51 12/31/17 13:00 85 18 124/67 (86) 97 Room Air 12/31/17 11:00 80 18 118/72 (87) 96 Room Air 12/31/17 09:00 98 Room Air 12/31/17 08:51 18 12/31/17 08:51 99.3 85 18 151/83 (105) 96 Room Air 12/31/17 08:45 99.3 86 18 151/83 (105) 95 Imaging Last Impressions Abdomen/Pelvis CT 12/31/17 0857 Signed Impressions: Service Date/Time: Sunday, December 31, 2017 10:03 - CONCLUSION: 1. Normal segment of colon involving transverse colon and proximal descending colon, characterized by mild wall thickening and induration of the fat surrounding the involved segment. Differential considerations include infection, ischemia and inflammatory bowel disease. 2. There is a mild to moderate amount of free fluid in the right lower quadrant and dependent pelvis. Juan Pablo Osei MD Laboratory Test 12/31/17 09:05 White Blood Count 9.2 TH/MM3 Red Blood Count 4.55 MIL/MM3 Hemoglobin 14.1 GM/DL Hematocrit 42.8 % Mean Corpuscular Volume 94.0 FL Mean Corpuscular Hemoglobin 31.1 PG Mean Corpuscular Hemoglobin Concent 33.1 % Red Cell Distribution Width 15.5 % Platelet Count 169 TH/MM3 Mean Platelet Volume 8.0 FL Neutrophils (%) (Auto) 72.9 % Lymphocytes (%) (Auto) 17.4 % Monocytes (%) (Auto) 9.3 % Eosinophils (%) (Auto) 0.2 % Basophils (%) (Auto) 0.2 % Neutrophils # (Auto) 6.7 TH/MM3 Lymphocytes # (Auto) 1.6 TH/MM3 Monocytes # (Auto) 0.9 TH/MM3 Eosinophils # (Auto) 0.0 TH/MM3 Basophils # (Auto) 0.0 TH/MM3 CBC Comment AUTO DIFF Differential Total Cells Counted 100 Neutrophils % (Manual) 73 % Band Neutrophils % 11 % Lymphocytes % 13 % Monocytes % 3 % Neutrophils # (Manual) 7.7 TH/MM3 Differential Comment FINAL DIFF MANUAL Dohle Bodies PRESENT Platelet Estimate NORMAL Platelet Morphology Comment NORMAL Prothrombin Time 11.4 SEC Prothromb Time International Ratio 1.1 RATIO Activated Partial Thromboplast Time 26.6 SEC Blood Urea Nitrogen 9 MG/DL Creatinine 0.92 MG/DL Random Glucose 116 MG/DL Total Protein 7.1 GM/DL Albumin 3.2 GM/DL Calcium Level 8.6 MG/DL Alkaline Phosphatase 45 U/L Aspartate Amino Transf (AST/SGOT) 14 U/L Alanine Aminotransferase (ALT/SGPT) 20 U/L Total Bilirubin 1.3 MG/DL Sodium Level 135 MEQ/L Potassium Level 4.1 MEQ/L Chloride Level 104 MEQ/L Carbon Dioxide Level 21.3 MEQ/L Anion Gap 10 MEQ/L Estimat Glomerular Filtration Rate 100 ML/MIN Lactic Acid Level 1.3 mmol/L Lipase 69 U/L Physical Examination HEENT: Normocephalic; atraumatic CHEST: Even/unlabored CARDIAC: RRR ABDOMEN: Distended, semi-firm, diffuse TTP, bowel sounds active SKIN: Normal; no rash; no jaundice. YARD CLEANER: No focal deficits; alert and oriented times three. (Zaria Atkinson) Assessment and Plan Plan Assessment: - Abdominal pain and swelling- diffusely TTP, has had intermittent abdominal pain since admission with diagnosis of ischemic colitis in January but has been increasing in intensity and severity since Sunday to the point he was crawling on his knees earlier Colonoscopy January 2017 --> Transverse colon contained some spotty colitis which was brightly erythematous. Descending and sigmoid colon was more severe confluent colitis consistent with ischemia. Small subcentimeter polyp in the rectum. Large internal hemorrhoids with some localized inflammation. Pathology consistent with ischemic colitis CT abdomen and pelvis (12/31) --> Normal segment of colon involving transverse colon and proximal descending colon, characterized by mild wall thickening and induration of the fat surrounding the involved segment. - BRBPR- states intermittent since January, but has had multiple episodes since Sunday - Nausea, denies emesis - Arthritis- on Humira and Methotrexate Plan: CTA abdomen and pelvis Colonoscopy tomorrow Obtain consent Clear liquids today Magnesium Citrate prep NPO after MN Monitor H/H Transfuse to keep hgb over 8 Stool studies Further recommendations based on findings of above Pt has been seen and examined by myself and Dr. Landaverde and this note is written on his behalf (Zaria Atkinson) Physician Comments Seen and examined with CHERYL, Feeling better now. CTA pending. Colonoscopy planned for tomorrow. Thank you (Tyrone Landaverde MD) Zaria Atkinson Dec 31, 2017 14:12 Tyrone Landaverde MD Dec 31, 2017 17:02
[2017-12-31 14:32] LABS: BILIRUBIN, URINE NEG (NEG); BLOOD, URINE NEG (NEG); GLUCOSE,URINE TRACE mg/dL (NEG); KETONE, URINE 40 mg/dL (NEG); NITRITE,URINE NEG (NEG); URINE COLOR LIGHT-YELLOW (YELLW/STRAW); URINE LEUKOCYTE ESTERASE NEG (NEG)
[2017-12-31] MEDS ORDERED: MAGNESIUM CITRATE SOLN 300 ML BTL PO ONE ×2 (16:00→18:00)
[2017-12-31] MEDS: PANTOPRAZOLE SODIUM 40 MG VIAL IV PUSH SCH (16:15)
[2017-12-31] MEDS: metroNIDAZOLE 500 MG INJ 100 ML IV SCH ×2 (17:44→23:58)
[2017-12-31] MEDS: MORPHINE SULFATE 4 MG/ML INJ IV PUSH PRN (17:45)
[2017-12-31] MEDS: SODIUM CHLORIDE 0.9% FLUSH 10 ML FLUSH IV FLUSH SCH (21:00)
[2017-12-31] MEDS: TAMSULOSIN HCL 0.4 MG CAP PO SCH (22:03)
[2017-12-31] MEDS: CIPROFLOXACIN 400 MG PREMIX 200 ML IV SCH (22:03)
[2017-12-31 22:10] LABS: AUTOMATED NEUTROPHIL # 6.1 TH/MM3 (1.8-7.7); BASOPHIL % 0.2 % (0.0-2.0); EOSINOPHIL % 0.2 % (0.0-4.0); HEMOGLOBIN 13.4 GM/DL (13.0-17.0); LYMPH % 12.2 % (9.0-44.0); MEAN CELL VOLUME 94.3 FL (80.0-100.0); MEAN CORPUSCULAR HEMOGLOBIN 31.7 PG (27.0-34.0); MEAN CORPUSCULAR HGB CONC 33.6 % (32.0-36.0); MEAN PLATELET VOLUME 8.2 FL (7.0-11.0); MONO % 9.6 % (0.0-8.0); MONOCYTE # 0.8 TH/MM3 (0-0.9); NEUT % 77.8 % (16.0-70.0); PLATELET COUNT 152 TH/MM3 (150-450); RED BLOOD COUNT 4.24 MIL/MM3 (4.50-5.90); RED CELL DISTRIBUTION WIDTH 15.4 % (11.6-17.2); WHITE BLOOD COUNT 7.8 TH/MM3 (4.0-11.0)
[2017-12-31 23:11] LABS: BANDS 34 % (0-6); DOHLE BODIES PRESENT (NONE SEEN); LYMPHOCYTES 10 % (9-44); MONOCYTES 4 % (0-8); NEUTROPHIL # MANUAL DIFF 6.7 TH/MM3 (1.8-7.7); POLYS (SEG NEUTROPHILS) 52 % (16-70); TOXIC GRANULATION 1+ (NORMAL)
[2018-01-01] VITALS (7 sets, daily range): BP systolic 103–127; BP diastolic 56–92; PULSE 83–116; RESP 18–20; TEMP 98.5–99.4; O2SAT 94–97
[2018-01-01 02:10] LABS: AUTOMATED NEUTROPHIL # 5.4 TH/MM3 (1.8-7.7); BASOPHIL % 0.1 % (0.0-2.0); EOSINOPHIL % 0.2 % (0.0-4.0); HEMATOCRIT 39.4 % (39.0-51.0); HEMOGLOBIN 13.4 GM/DL (13.0-17.0); LYMPH % 19.6 % (9.0-44.0); LYMPHOCYTE # 1.5 TH/MM3 (1.0-4.8); MEAN CELL VOLUME 93.8 FL (80.0-100.0); MEAN CORPUSCULAR HEMOGLOBIN 31.9 PG (27.0-34.0); MEAN PLATELET VOLUME 7.8 FL (7.0-11.0); MONO % 8.3 % (0.0-8.0); MONOCYTE # 0.6 TH/MM3 (0-0.9); NEUT % 71.8 % (16.0-70.0); PLATELET COUNT 147 TH/MM3 (150-450); RED CELL DISTRIBUTION WIDTH 15.3 % (11.6-17.2); WHITE BLOOD COUNT 7.5 TH/MM3 (4.0-11.0)
[2018-01-01] MEDS: PANTOPRAZOLE SODIUM 40 MG VIAL IV PUSH SCH ×2 (04:03→17:36)
[2018-01-01] MEDS: metroNIDAZOLE 500 MG INJ 100 ML IV SCH ×4 (05:37→23:19)
[2018-01-01 06:49] LABS: AUTOMATED NEUTROPHIL # 4.6 TH/MM3 (1.8-7.7); BASOPHIL % 0.2 % (0.0-2.0); EOSINOPHIL % 0.5 % (0.0-4.0); HEMOGLOBIN 12.4 GM/DL (13.0-17.0); LYMPH % 21.6 % (9.0-44.0); LYMPHOCYTE # 1.4 TH/MM3 (1.0-4.8); MEAN CELL VOLUME 93.6 FL (80.0-100.0); MEAN CORPUSCULAR HEMOGLOBIN 31.3 PG (27.0-34.0); MEAN CORPUSCULAR HGB CONC 33.4 % (32.0-36.0); MONO % 8.9 % (0.0-8.0); MONOCYTE # 0.6 TH/MM3 (0-0.9); NEUT % 68.8 % (16.0-70.0); PLATELET COUNT 157 TH/MM3 (150-450); RED BLOOD COUNT 3.95 MIL/MM3 (4.50-5.90); RED CELL DISTRIBUTION WIDTH 15.2 % (11.6-17.2); WHITE BLOOD COUNT 6.6 TH/MM3 (4.0-11.0)
[2018-01-01] MEDS: MORPHINE SULFATE 4 MG/ML INJ IV PUSH PRN ×5 (07:26→23:26)
[2018-01-01 07:30] LABS: BICARBONATE 22.7 MEQ/L (21.0-32.0); CALCIUM 7.7 MG/DL (8.5-10.1); CREATININE 0.7 MG/DL (0.60-1.30)
--- NOTE | 2018-01-01 08:14 | MB ---
cc: Darren Garzon MD DATE: 12/31/2017 CHIEF COMPLAINT: Abdominal pain. HISTORY OF PRESENT ILLNESS: The patient is a 62-year-old male who presents with multiple medical issues including a history of arthritis, currently on methotrexate and Humira. The patient also with diabetes and previous history of ischemic colitis, presents with acute onset of abdominal pain. The patient states the pain started around [place] and was sharp, continued to get worse. The patient states that it was worse with movement, better with lying still. He also had some associated bright red bloody stools. He came to the emergency department. Further evaluation including CT scan showing concern for ischemic colitis. The patient states nausea, denies vomiting. He complains of sweats. denies chills. He has note of previous history last year for which he underwent evaluation with GI finding, colitis and ischemia, a small polyp treated medically and discharged. He stated he was doing relatively well, however, has intermittent abdominal pain and then Sunday, it was pretty severe. He has been on Cipro and Flagyl antibiotics. He also had evaluation laboratory values with a WBC of 9.2 and afebrile. PAST MEDICAL HISTORY: Hyperlipidemia, diabetes, rheumatoid arthritis, gout, arthritis, osteoarthritis, PTSD, depression, questionable atrial fibrillation. PAST SURGICAL HISTORY: Cardiac catheterization, appendectomy, laminectomy, hemorrhoidectomy, colonoscopy. MEDICATIONS: See EMR, methotrexate and Humira. ALLERGIES: ATORVASTATIN, GABAPENTIN, DULOXETINE. SOCIAL HISTORY: Denies smoking, ETOH or IVDA. FAMILY HISTORY: Denies diabetes or hypertension. REVIEW OF SYSTEMS: GENERAL: Denies fevers. HEENT: Denies eye pain or ear pain. NECK: Denies swelling or pain. LUNGS: Denies cough or wheeze. HEART: Denies palpitations or chest pain. ABDOMEN: Complains of nausea and abdominal pain. GENITOURINARY: Denies dysuria, hematuria. ENDOCRINE: Denies polyuria, polydipsia. NEUROLOGIC: Denies numbness or tingling. PHYSICAL EXAMINATION: GENERAL: The patient in no acute distress. VITAL SIGNS: Temperature 99.3, pulse 86, respirations 18, blood pressure 151/83, saturation 95% on room air. HEENT: Pupils equally, round, reactive. NECK: Supple. Trachea midline. LUNGS: Clear to auscultation, bilateral expansion. HEART: S1, S2, regular. ABDOMEN: Soft. Positive tenderness to palpation bilateral lower quadrants. No rebound. No rigidity, no guarding. INTEGUMENTARY: No obvious masses or lesions. NEUROLOGIC: 5/5 noted all extremities. GCS of 15. PSYCHIATRIC: Appropriate mood, appropriate affect. LABORATORY AND DIAGNOSTIC DATA: 1. WBC 99.2, hemoglobin 14.1, hematocrit 42.8, platelets 169. Sodium 135, potassium 4.1, chloride 104, BUN 9, creatinine 0.9, lactate 1.3, AST 14, ALT 20, lipase 69. INR is 1.1. 2. CT reviewed by myself showing mild wall thickening, induration, fat stranding involving segments of colon. Mild free fluid, right lower quadrant. ASSESSMENT: The patient is a 62-year-old male with abdominal pain, concern for a gastrointestinal bleed and ischemic colitis. PLAN: After full clinical and radiologic laboratory workup, the patient without any issues, the patient appears to have concern for ischemic colitis. He does not present with peritonitis or peritoneal abdomen at this time. At this point, recommend IV fluid hydration, antibiotics, pain control. The patient okay for a clear diet. Await GI recommendations and further await a CT scan, angiogram for further evaluation of the ischemia. I will continue to follow with abdominal exams. Discussed with the patient if ischemia progresses or patient dramatically changes in hemodynamic status, we will consider doing a colostomy. However, at this point, do recommend initial attempt with medical management. For the patient's GI bleed, again await GI recommendations and possible colonoscopy. The patient's hemoglobin is normal and coagulation is normal as well. Continue to monitor and observe this as well. MD EDWARDO Maciel/AYE , 06:28 PM , 07:15 PM
--- NOTE | 2018-01-01 08:37 | MB ---
cc: Song Arzate MD DATE: 12/31/2017 HISTORY OF PRESENT ILLNESS: This is a 62-year-old male with a history of ischemic colitis, presented with severe abdominal pain with bright red blood per rectum. He was diagnosed with ischemic colitis. He complains of left-sided chest pain. He had stress test last year at the [facility], which was reportedly unremarkable. He also gets dyspnea with exertion. He has a previous history of palpitations, but does not have a clear diagnosis of atrial fibrillation. PAST MEDICAL HISTORY: Positive for dyslipidemia, rheumatoid arthritis, diabetes mellitus, osteoarthritis, gouty arthritis, posttraumatic stress disorder, depression. PAST SURGICAL HISTORY: Appendectomy, laminectomy, hemorrhoidectomy. ALLERGIES: ATORVASTATIN, GABAPENTIN, DULOXETINE. MEDICATIONS: At home include methotrexate, tamsulosin, pantoprazole, insulin and Humira. SOCIAL HISTORY: The patient does not smoke, does not drink alcohol. Lives alone. FAMILY HISTORY: Positive for heart disease. REVIEW OF SYSTEMS: Otherwise negative. PHYSICAL EXAMINATION: VITAL SIGNS: Blood pressure 124/67, pulse 85 and regular. HEENT: Negative. NECK: 2+ carotid upstrokes, no bruits. LUNGS: Clear. HEART: Regular, with no murmur, gallop or rub. ABDOMEN: Soft. No bruits. EXTREMITIES: Without edema, 1-2+ pulses. NEUROLOGIC: Grossly nonfocal. ECHOCARDIOGRAM: Was reviewed and showed normal sinus rhythm, normal axis and intervals, no acute changes. LABORATORY DATA: Hemoglobin 14.1, potassium 4.1, creatinine 0.9, AST 14, ALT 20. DIAGNOSES: 1. Recurrent ischemic colitis. 2. Rheumatoid arthritis. 3. Diabetes mellitus. 4. Dyslipidemia. 5. Depression. DISPOSITION AND RECOMMENDATIONS: Mr. Taylor will be treated for his suspected ischemic colitis. He will be monitored on telemetry during his hospitalization. I then recommend to place an event monitor through the [facility] to evaluate for atrial fibrillation. If this is negative, he may need a loop recorder placement, which can be arranged through the [facility]. I will follow him for cardiology during his hospitalization. He reportedly had a negative stress test through the [facility] last year after his last hospitalization here. MD DONTRELL Goodman/AYE , 06:45 PM , 07:40 PM FUENTES
[2018-01-01] MEDS: SODIUM CHLORIDE 0.9% FLUSH 10 ML FLUSH IV FLUSH SCH ×2 (09:00→21:00)
--- NOTE | 2018-01-01 09:48 | GIPROC ---
[facility] [address] [facility]. [facility], [address] EGD PROCEDURE REPORT EXAM DATE: 01/01/2018 PATIENT NAME: Edgar Taylor MR #: [id number] BIRTHDATE: 1955 ATTENDING: Tyrone Landaverde MD ORDER #: [id number] STITCHER SPECIAL MACHINE: Travis Burger and Erin Garcia STATUS: inpatient INDICATIONS: The patient is a 62 yr old male here for an EGD due to abdominal pain PROCEDURE PERFORMED: EGD w/ biopsy MEDICATIONS: None and Per Anesthesia. TOPICAL ANESTHETIC: CONSENT: The patient understands the risks and benefits of the procedure and understands that these risks include, but are not limited to: sedation, allergic reaction, infection, perforation and/or bleeding. Alternative means of evaluation and treatment include, among others: physical exam, x-rays, and/or surgical intervention. The patient elects to proceed with this endoscopic procedure. medical equipment was checked for proper function. Hand hygiene and appropriate measures for infection prevention was taken. After the risks, benefits and alternatives of the procedure were thoroughly explained, Informed consent was verified, confirmed and timeout was successfully executed by the treatment team. The patient was anesthetized with topical anesthesia and the EC-[id number] (Pedi C) endoscope was introduced through the mouth and advanced to the second portion of the duodenum. Retroflexed views revealed no abnormalities The gastroscope was then slowly withdrawn and removed. ESOPHAGUS: There was LA Class A esophagitis noted. A biopsy was performed using cold forceps. Sample sent for histology. STOMACH: There was erythematous moderate gastritis in the gastric antrum. A biopsy was performed using cold forceps. Sample sent for histology. DUODENUM: Moderate duodenal inflammation was found in the duodenal bulb. ADVERSE EVENTS: There were no complications. IMPRESSIONS: 1. There was LA Class A esophagitis noted; biopsy was performed 2. There was erythematous gastritis in the gastric antrum; biopsy was performed 3. Duodenal inflammation was found in the duodenal bulb 4. Retroflexed views revealed no abnormalities RECOMMENDATIONS: 1. Await biopsy results. Biopsy results will not be ready for 7-10 days. If you don't hear from us in two weeks, call our office for biopsy results. 2. Anti-reflux regimen 3. Continue PPI 4. Avoid NSAIDS PATIENT CONDITION: stable DISPOSITION: Inpatient REPEAT EXAM: Return 1 year EGD pending biopsy results Tyrone Landaverde MD eSigned: Tyrone Landaverde MD 01/01/2018 9:48 AM cc: PATIENT NAME: Edgar Taylor MR#: [id number]
--- NOTE | 2018-01-01 09:51 | GIPROC ---
[facility] [address] [facility]. [facility], [address] COLONOSCOPY PROCEDURE REPORT EXAM DATE: 01/01/2018 PATIENT NAME: Edgar Taylor MR #: [id number] BIRTHDATE: 1955 ENDOSCOPIST: Tyrone Landaverde MD ORDER #: [id number] ACTING PROFESSOR: Coco Wright and Erin Garcia STATUS: inpatient INDICATIONS: The patient is a 62 yr old male here for a colonoscopy due to abdominal pain and hematochezia PROCEDURE PERFORMED: Colonoscopy with biopsy MEDICATIONS: None and Per Anesthesia. PREP QUALITY: poor PREP TYPE:GoLytely ESTIMATED BLOOD LOSS: None CONSENT: The patient understands the risks and benefits of the procedure and understands that these risks include, but are not limited to: sedation, allergic reaction, infection, perforation and/or bleeding. Alternative means of evaluation and treatment include, among others: physical exam, x-rays, and/or surgical intervention. The patient elects to proceed with this endoscopic procedure. medical equipment was checked for proper function. Hand hygiene and appropriate measures for infection prevention was taken. After the risks, benefits and alternatives of the procedure were thoroughly explained, Informed consent was verified, confirmed and timeout was successfully executed by the treatment team. A digital exam revealed external hemorrhoids The Pentax EC-[id number] endoscope was introduced through the anus and advanced to the hepatic flexure. The instrument was then slowly withdrawn as the colon was fully examined. COLON FINDINGS: A circumferential diffuse patch of colitis was found in the descending colon and transverse colon. The mucosa was erythematous, friable and ulcerated. Consistent with ischemic. This is consistent with ischemic colitis disease. A biopsy was performed using cold forceps. Retroflexed views revealed internal hemorrhoids and Retroflexed views revealed small internal hemorrhoids The scope was then completely withdrawn from the patient and the procedure terminated. ADVERSE EVENTS: There were no complications. IMPRESSIONS: 1. Circumferential diffuse colitis was found in the descending colon and transverse colon; The mucosa was erythematous, friable and ulcerated; Consistent with ischemic. This is consistent with ischemic colitis.; biopsy was performed using cold forceps 2. Retroflexed views revealed internal hemorrhoids 3. Retroflexed views revealed small internal hemorrhoids 4. Revealed external hemorrhoids RECOMMENDATIONS: 1. Await biopsy results. Biopsy results will not be ready for 7-10 days. If you don't hear from us in two weeks, call our office for results. 2. Continue surveillance 3. Yearly hemoccult RECALL: Return 1 month Colonoscopy, pending biopsy results Tyrone Landaverde MD eSigned: Tyrone Landaverde MD 01/01/2018 9:51 AM cc: PATIENT NAME: Edgar Taylor MR#: [id number]
[2018-01-01] MEDS: CIPROFLOXACIN 400 MG PREMIX 200 ML IV SCH ×2 (10:29→23:19)
[2018-01-01] MEDS ORDERED: POVIDONE IODINE 5% (ANTISEPSIS KIT) 4 APPLICATIONS EACH NARE PRN (10:45)
[2018-01-01] MEDS ORDERED: CHLORHEXIDINE GLUCONATE 2 % 1 PACK (2 CLOTHS) TOPICAL PRN (10:45)
[2018-01-01] MEDS ORDERED: METOPROLOL TARTRATE 25 MG TAB PO PRN (10:45)
[2018-01-01] MEDS ORDERED: SODIUM CHLORID 0.9% 500 ML IV PRN (10:45)
[2018-01-01] MEDS ORDERED: LACTATED RINGER'S 1000 ML IV PRN (10:45)
--- NOTE | 2018-01-01 11:25 | HHI.DCPOC ---
Discharge Care Plan Diagnosis: (1) Colitis Your Health Problems Are: Difficulty with ADL Exercise Tolerance Goals to Promote Your Health * To prevent worsening of your condition and complications * To maintain your health at the optimal level Directions to Meet Your Goals Take your medications as prescribed Follow your dietary instruction Follow activity as directed Keep your appointments as scheduled Take your immunizations and boosters as scheduled If your symptoms worsen call your PCP, if no PCP go to Urgent Care Center or Emergency Room Smoking is Dangerous to Your Health. Avoid second hand smoke Call the 24-hour hour crisis hotline for domestic abuse at Daniel Farfan MD Jan 01, 2018 11:25
--- NOTE | 2018-01-01 11:25 | HHI.FF ---
Face to Face Verification Diagnosis: (1) Colitis Physical Therapy Order: Evaluate and Treat, Improve ambulation, Strength and gait training Home Health Nursing Order: Medical education Signs/symptoms of disease process Nursing assessment with vital signs I have seen patient Edgar Taylor on 01/01/18. My clinical findings support the need for the requested home health care services because: Deconditioned w/ increased weakness I certify that my clinical findings support that this patient is homebound because: Unsafe to leave home unassisted Daniel Farfan MD Jan 01, 2018 11:25
[2018-01-01] MEDS ORDERED: POTASSIUM CHLORIDE 20 MEQ CONTROLLED RELEASE TAB PO ONE (11:45)
[2018-01-01] MEDS ORDERED: LIDOCAINE HCL 1% PF 5 ML SYRINGE OTHER ONE (12:00)
[2018-01-01] MEDS ORDERED: D5-1/2 NS + KCL 20 MEQ INJ 1,000 ML IV PRN (12:00)
[2018-01-01] MEDS ORDERED: PROPOFOL 200 MG/20 ML AMP IV ONE (12:00)
[2018-01-01] MEDS: NS + KCL 20 MEQ INJ 1,000 ML IV SCH ×2 (12:35→21:01)
[2018-01-01] MEDS ORDERED: IOHEXOL 350 MG/ML 10 ML VIAL (for RAD DIAG) IVCONTRAST ONE (12:36)
--- NOTE | 2018-01-01 13:38 | HHI.PR ---
Subjective Remarks Follow-up colitis. Continues to have abdominal pain no diarrhea tolerated EGD and colonoscopy. Discussed with nursing Objective Vitals Vital Signs Date Time Temp Pulse Resp B/P (MAP) Pulse Ox O2 Delivery O2 Flow Rate FiO2 01/01/18 10:15 139/67 (91) 01/01/18 09:54 98.4 82 18 103/63 (76) 94 01/01/18 08:00 116 01/01/18 07:00 Room Air 01/01/18 04:00 Room Air 01/01/18 04:00 99.1 92 18 107/56 (73) 95 01/01/18 04:00 89 01/01/18 00:00 99 01/01/18 00:00 Room Air 12/31/17 23:53 99.6 104 17 123/61 (81) 96 12/31/17 20:00 Room Air 12/31/17 20:00 98 12/31/17 20:00 100.2 102 17 150/70 (96) 95 12/31/17 16:45 104 12/31/17 16:00 98.7 99 20 152/76 (101) 94 12/31/17 14:13 99.0 96 20 124/63 (83) 96 12/31/17 13:51 I/O 12/31/17 12/31/17 12/31/17 01/01/18 01/01/18 01/01/18 07:00 15:00 23:00 07:00 15:00 23:00 Intake Total 1300 ml 1336 ml 2018 ml 200 ml Output Total 400 ml Balance 1300 ml 936 ml 2018 ml 200 ml Intake Oral 240 ml IV Total 1300 ml 1336 ml 1778 ml Other 200 ml Output Urine Total 400 ml # Voids 6 # Bowel Movements 0 6 1 Result Diagram: 01/01/18 0625 01/01/18 0625 Imaging Last Impressions Abdomen/Pelvis CT 12/31/17 0857 Signed Impressions: Service Date/Time: Sunday, December 31, 2017 10:03 - CONCLUSION: 1. Normal segment of colon involving transverse colon and proximal descending colon, characterized by mild wall thickening and induration of the fat surrounding the involved segment. Differential considerations include infection, ischemia and inflammatory bowel disease. 2. There is a mild to moderate amount of free fluid in the right lower quadrant and dependent pelvis. Juan Pablo Osei MD Objective Remarks GENERAL: This is a well-nourished, well-developed patient, in no apparent distress. SKIN: No rashes, ecchymoses or lesions. Cool and dry. CARDIOVASCULAR: Regular rate and rhythm without murmurs, gallops, or rubs. RESPIRATORY: Clear to auscultation. Breath sounds equal bilaterally. No wheezes , rales, or rhonchi. GASTROINTESTINAL: Abdomen soft, tender right and lower quadrants, nondistended. No guarding. MUSCULOSKELETAL: Extremities without clubbing, cyanosis, or edema No calf tenderness. NEUROLOGICAL: Awake and alert. Motor and sensory grossly within normal limits. Normal speech. Procedures EGD and Cscope A/P Problem List: (1) Colitis ICD Code: K52.9 - Noninfective gastroenteritis and colitis, unspecified Status: Acute Assessment and Plan Ischemic colitis versus infectious colitis status post colonoscopy which showed diffuse colitis involving the descending and transverse colon stool studies negative to date. CTA with no stenosis. Continue IV ciprofloxacin and Flagyl and pain management with IV morphine. Continue full liquid diet advance as tolerated Bandemia possible sepsis secondary to above Immunocompromised state on Humira and methotrexate. Humira and methotrexate currently on hold Suspects underlying A. fib causing ischemic bowel. This is the second time. Cardiology recommending outpatient monitor or loop recorder Chronic medical conditions of diabetes mellitus hyperlipidemia, hypertension, rheumatoid arthritis, gouty arthritis, osteoarthritis, and PTSD. Continue outpatient medications as appropriate. Monitor fingersticks with sliding scale coverage. DVT prophylaxis with SCD and early ambulation. Hold pharmacological prophylaxis secondary to GI bleed. Hyperlipidemia no hx of htn- takes antihypertensives for primary renal protection in diabetic Rheumatoid Arthritis Gouty Arthritis Osteoarthritis Diabetes mellitus PTSD Depression ?Atrial fibrillation? . Plan: Aggressive IV hydration. Normal saline at 100 cc per hour. Also run D5 normal saline at 42 cc per hour concomitantly. Monitor fingersticks every 4 hours. For now, no sliding scale coverage yet until we know blood sugar levels. Patient received Cipro and Flagyl IV in ER. We'll continue Cipro 400 with grams IV every 12 hours. Continue Flagyl 500 mg IV every 6 hours. Serial hemoglobin and hematocrit. Type and screen. GI consult. General surgery consult as this is his second time. Telemetry monitoring. Also would consult cardiology for possible loop recorder placement since this patient is having ischemic bowel episodes. He also reports of prior history of or feeling of palpitations and tachycardia. Question whether he has underlying A. fib. Resume rest of his home medications. DVT prophylaxis with SCD. GI prophylaxis on pantoprazole. Discharge Planning When ready discharge home with PT and visiting nurse Daniel Farfan MD Jan 01, 2018 13:38
[2018-01-01] MEDS: INSULIN ASPART SUPPLEMENTAL SCALE SQ SCH ×3 (14:00→21:00)
--- NOTE | 2018-01-01 14:53 | RADRPT ---
EXAM DATE/TIME: 01/01/2018 11:42 [place] COMPARISON: CT ABDOMEN & PELVIS W/O CONTRAST, October 16, 2015, 14:15. CT ABDOMEN & PELVIS W CONTRAST, December 31, 2017, 10:03. INDICATIONS : Ischemic colitis. IV CONTRAST: 85 cc Omnipaque 350 (iohexol) IV ORAL CONTRAST: No oral contrast ingested. RADIATION DOSE: 5.83 CTDIvol (mGy) MEDICAL HISTORY : Cardiovascular disease. Hypertension. Diabetes SURGICAL HISTORY : Appendectomy. Laminectomy ENCOUNTER: Initial ACUITY: 1 day PAIN SCALE: 7/10 LOCATION: Abdomen TECHNIQUE: Volumetric scanning was performed using a multi-row detector CT scanner. The data was post processed with a variety of visualization algorithms including full volume maximum intensity projection, multi -planar sliding thin slab reformation, curved planar reformation, and surface rendering techniques. Using automated exposure control and adjustment of the mA and/or kV according to patient size, radiat ion dose was kept as low as reasonably achievable to obtain optimal diagnostic quality images. DICOM format image data is available electronically for review and comparison. FINDINGS: Imaging through the lung bases demonstrates an area of atelectasis in both lower lobes. There is no s ignificant effusion. The appearance of the liver, spleen, pancreas, adrenal glands and kidneys is within normal limits. There is no retroperitoneal adenopathy. The abdominal aorta is widely patent. The celiac, SMA and RJ are all well visualized and appear vargas nt proximally. Evaluation of loops of small large bowel demonstrate diffuse colonic thickening which begins in the m id transverse colon and extends throughout the proximal descending colon nearly down to the sigmoid. There are inflammatory changes evident in the left paracolic gutter. No free intraperitoneal air is identified. There is no free fluid. No iliac or inguinal adenopathy is seen. The visualized osseous structures are grossly intact. CONCLUSION: 1. The exam demonstrates colonic thickening beginning at the level of the mid transverse and extendin g down to the distal descending colon. There are inflammatory changes within the left paracolic gutte r. Findings would be consistent with a colitis. No evidence of perforation identified. Ori Potts MD on January 01, 2018 at 14:28 Board Certified Radiologist. This report was verified electronically.
--- NOTE | 2018-01-01 15:54 | HHI.PR ---
cc: DuranDarren Subjective Subjective Notes Resting in bed Tolerated popsicles and ice water Did not do well with the soup Objective Vitals/I&O Vital Signs Date Time Temp Pulse Resp B/P (MAP) Pulse Ox O2 Delivery O2 Flow Rate FiO2 01/01/18 10:15 139/67 (91) 01/01/18 09:54 98.4 82 18 94 01/01/18 07:00 Room Air Labs Laboratory Tests Test 12/31/17 21:20 12/31/17 22:10 01/01/18 02:00 01/01/18 06:25 White Blood Count 7.8 7.5 6.6 Red Blood Count 4.24 4.20 3.95 Hemoglobin 13.4 13.4 12.4 Hematocrit 40.0 39.4 37.0 Mean Corpuscular Volume 94.3 93.8 93.6 Mean Corpuscular Hemoglobin 31.7 31.9 31.3 Mean Corpuscular Hemoglobin Concent 33.6 34.0 33.4 Red Cell Distribution Width 15.4 15.3 15.2 Platelet Count 152 147 157 Mean Platelet Volume 8.2 7.8 8.0 Neutrophils (%) (Auto) 77.8 71.8 68.8 Lymphocytes (%) (Auto) 12.2 19.6 21.6 Monocytes (%) (Auto) 9.6 8.3 8.9 Eosinophils (%) (Auto) 0.2 0.2 0.5 Basophils (%) (Auto) 0.2 0.1 0.2 Neutrophils # (Auto) 6.1 5.4 4.6 Lymphocytes # (Auto) 1.0 1.5 1.4 Monocytes # (Auto) 0.8 0.6 0.6 Eosinophils # (Auto) 0.0 0.0 0.0 Basophils # (Auto) 0.0 0.0 0.0 CBC Comment AUTO DIFF DIFF FINAL DIFF FINAL Differential Total Cells Counted 100 Neutrophils % (Manual) 52 Band Neutrophils % 34 Lymphocytes % 10 Monocytes % 4 Neutrophils # (Manual) 6.7 Differential Comment FINAL DIFF MANUAL Toxic Granulation 1+ Dohle Bodies PRESENT Platelet Estimate NORMAL Platelet Morphology Comment NORMAL Lactic Acid Level 1.0 1.2 0.7 Stool C. difficile Toxin (PCR) NEGATIVE Stl C. difficile Toxin Epiderm 027 PRESUMPTIVE NEGATIVE Blood Urea Nitrogen 5 Creatinine 0.70 Random Glucose 175 Calcium Level 7.7 Sodium Level 138 Potassium Level 3.6 Chloride Level 106 Carbon Dioxide Level 22.7 Anion Gap 9 Estimat Glomerular Filtration Rate 138 Magnesium Level 2.5 Date/Time Source Procedure Growth Status 12/31/17 22:10 Stool Stool Cryptosporidium Exam Pending Received 12/31/17 22:10 Stool Stool Giardia Antigen (AMARJIT) Pending Received Cardiovascular: Regular Lungs: Clear Abdomen: Other (RLQ and LLQ tenderness with palpation; mildly distended ) Extremities: No edema A/P Assessment and Plan 62 year old male with abdominal pain; colitis -Continue IVF -Continue Cipro/Flagyl -Continue with sips of clear liquids for tonight -S/P EGD----shows esophagitis -S/P colonoscopy--- diffuse colitis in descending colon and transverse colon -Will continue to follow abdominal exam Attending Statement patient seen at bedside appears doing better egd with gastritis colonoscopy with colitis transverse to descending will attempt observation pt may need surgical intervention pending his course vs delayed treatment Attestation The exam, history, and the medical decision-making described in the above note were completed with the assistance of the mid-level provider. I reviewed and agree with the findings presented. I attest that I had a [id number] encounter with the patient on the same day, and personally performed and documented my assessment and findings in the medical record. Patricia March/First Mickie LUNA Jan 01, 2018 15:54 Darren Garzon MD Jan 03, 2018 11:29
--- NOTE | 2018-01-01 16:47 | EKG ---
Date Performed: 12/31/2017 Time Performed: 08:45:38 PTAGE: 62 years EKG: Sinus rhythm Since previous tracing, no significant change noted NORMAL ECG PREVIOUS TRACING : 02/15/2017 09.24 DOCTOR: Silvano Messina Interpretating Date/Time 01/01/2018 16:44:28
--- NOTE | 2018-01-01 17:40 | PD.CARD.PN ---
Subjective Subjective Remarks Left lower anterior CP, LUQ pain, mild SOB Objective Medications Current Medications Medications (Trade) Dose Ordered Sig/Raman Route Start Time Stop Time Status Last Admin (NS Flush) 2 ml UNSCH PRN IV FLUSH 12/31/17 11:30 (NS Flush) 2 ml BID IV FLUSH 12/31/17 21:00 12/31/17 21:00 (Narcan Inj) 0.4 mg UNSCH PRN IV PUSH 12/31/17 11:30 Ciprofloxacin/ Dextrose 200 ml @ 200 mls/hr Q12H IV 12/31/17 23:00 01/01/18 10:29 Metronidazole 100 ml @ 100 mls/hr Q6H IV 12/31/17 18:00 01/01/18 12:34 (D50w (Vial) Inj) 50 ml UNSCH PRN IV PUSH 12/31/17 11:30 (Glucagon Inj) 1 mg UNSCH PRN OTHER 12/31/17 11:30 (Morphine Inj) 4 mg Q3H PRN IV PUSH 12/31/17 13:00 01/01/18 10:29 (Protonix Inj) 40 mg Q12H IV PUSH 12/31/17 16:00 01/01/18 04:03 (Flomax) 0.4 mg HS PO 12/31/17 21:00 12/31/17 22:03 Potassium Chloride/Dextrose/ Sod Cl 1,000 ml @ 75 mls/hr [id number] PRN IV 01/01/18 12:00 Potassium Chloride/Sodium Chloride 1,000 ml @ 100 mls/hr Q10H IV 01/01/18 12:00 01/01/18 12:35 (NovoLOG SUPPLEMENTAL SCALE) 1 ACHS SLIDING SCALE SQ 01/01/18 12:00 01/01/18 14:00 Lactated Ringer's 1,000 ml @ 30 mls/hr Q24H PRN IV 01/01/18 10:45 01/04/18 10:44 Sodium Chloride 500 ml @ 30 mls/hr [id number] PRN IV 01/01/18 10:45 01/04/18 10:44 (Lopressor) 25 mg LEAD FORMER PRN PO 01/01/18 10:45 01/04/18 10:44 (Betadine 5% Antisepsis Kit) 1 applic LEAD FORMER PRN EACH NARE 01/01/18 10:45 01/04/18 10:44 (Chlorhexidine 2% Cloth) 3 pack LEAD FORMER PRN TOPICAL 01/01/18 10:45 01/04/18 10:44 Vital Signs / I&O Vital Signs Date Time Temp Pulse Resp B/P (MAP) Pulse Ox O2 Delivery O2 Flow Rate FiO2 01/01/18 10:15 139/67 (91) 01/01/18 09:54 98.4 82 18 103/63 (76) 94 01/01/18 08:00 116 01/01/18 07:00 Room Air 01/01/18 04:00 Room Air 01/01/18 04:00 99.1 92 18 107/56 (73) 95 01/01/18 04:00 89 01/01/18 00:00 99 01/01/18 00:00 Room Air 12/31/17 23:53 99.6 104 17 123/61 (81) 96 12/31/17 20:00 Room Air 12/31/17 20:00 98 12/31/17 20:00 100.2 102 17 150/70 (96) 95 I/O 12/31/17 12/31/17 12/31/17 01/01/18 01/01/18 01/01/18 07:00 15:00 23:00 07:00 15:00 23:00 Intake Total 1300 ml 1336 ml 2018 ml 200 ml Output Total 400 ml Balance 1300 ml 936 ml 2018 ml 200 ml Intake Oral 240 ml IV Total 1300 ml 1336 ml 1778 ml Other 200 ml Output Urine Total 400 ml # Voids 6 # Bowel Movements 0 6 1 Physical Exam GENERAL: In mild distress SKIN: Warm and dry. HEAD: Normocephalic. EYES: No scleral icterus. No injection or drainage. NECK: Supple, trachea midline. No JVD or lymphadenopathy. CARDIOVASCULAR: Regular rate and rhythm without murmurs, gallops, or rubs. RESPIRATORY: Breath sounds equal bilaterally. No accessory muscle use. GASTROINTESTINAL: Abdomen soft, non-tender, nondistended. MUSCULOSKELETAL: No cyanosis, or edema. Laboratory Laboratory Tests Test 12/31/17 21:20 12/31/17 22:10 01/01/18 02:00 01/01/18 06:25 White Blood Count 7.8 TH/MM3 7.5 TH/MM3 6.6 TH/MM3 Red Blood Count 4.24 MIL/MM3 4.20 MIL/MM3 3.95 MIL/MM3 Hemoglobin 13.4 GM/DL 13.4 GM/DL 12.4 GM/DL Hematocrit 40.0 % 39.4 % 37.0 % Mean Corpuscular Volume 94.3 FL 93.8 FL 93.6 FL Mean Corpuscular Hemoglobin 31.7 PG 31.9 PG 31.3 PG Mean Corpuscular Hemoglobin Concent 33.6 % 34.0 % 33.4 % Red Cell Distribution Width 15.4 % 15.3 % 15.2 % Platelet Count 152 TH/MM3 147 TH/MM3 157 TH/MM3 Mean Platelet Volume 8.2 FL 7.8 FL 8.0 FL Neutrophils (%) (Auto) 77.8 % 71.8 % 68.8 % Lymphocytes (%) (Auto) 12.2 % 19.6 % 21.6 % Monocytes (%) (Auto) 9.6 % 8.3 % 8.9 % Eosinophils (%) (Auto) 0.2 % 0.2 % 0.5 % Basophils (%) (Auto) 0.2 % 0.1 % 0.2 % Neutrophils # (Auto) 6.1 TH/MM3 5.4 TH/MM3 4.6 TH/MM3 Lymphocytes # (Auto) 1.0 TH/MM3 1.5 TH/MM3 1.4 TH/MM3 Monocytes # (Auto) 0.8 TH/MM3 0.6 TH/MM3 0.6 TH/MM3 Eosinophils # (Auto) 0.0 TH/MM3 0.0 TH/MM3 0.0 TH/MM3 Basophils # (Auto) 0.0 TH/MM3 0.0 TH/MM3 0.0 TH/MM3 CBC Comment AUTO DIFF DIFF FINAL DIFF FINAL Differential Total Cells Counted 100 Neutrophils % (Manual) 52 % Band Neutrophils % 34 % Lymphocytes % 10 % Monocytes % 4 % Neutrophils # (Manual) 6.7 TH/MM3 Differential Comment FINAL DIFF MANUAL Toxic Granulation 1+ Dohle Bodies PRESENT Platelet Estimate NORMAL Platelet Morphology Comment NORMAL Lactic Acid Level 1.0 mmol/L 1.2 mmol/L 0.7 mmol/L Stool C. difficile Toxin (PCR) NEGATIVE Stl C. difficile Toxin Epiderm 027 PRESUMPTIVE NEGATIVE Blood Urea Nitrogen 5 MG/DL Creatinine 0.70 MG/DL Random Glucose 175 MG/DL Calcium Level 7.7 MG/DL Sodium Level 138 MEQ/L Potassium Level 3.6 MEQ/L Chloride Level 106 MEQ/L Carbon Dioxide Level 22.7 MEQ/L Anion Gap 9 MEQ/L Estimat Glomerular Filtration Rate 138 ML/MIN Magnesium Level 2.5 MG/DL Imaging Last 24 hours Impressions Abdomen/Pelvis CT 01/01/18 0000 Signed Impressions: Service Date/Time: Monday, January 01, 2018 11:42 - CONCLUSION: 1. The exam demonstrates colonic thickening beginning at the level of the mid transverse and extending down to the distal descending colon. There are inflammatory changes within the left paracolic gutter. Findings would be consistent with a colitis. No evidence of perforation identified. Ori Potts MD Assessment and Plan Problem List: (1) Colitis ICD Codes: K52.9 - Noninfective gastroenteritis and colitis, unspecified Status: Acute (2) Esophagitis ICD Codes: K20.9 - Esophagitis, unspecified (3) Intractable abdominal pain ICD Codes: R10.9 - Unspecified abdominal pain Status: Acute (4) GI bleed ICD Codes: K92.2 - Gastrointestinal hemorrhage Status: Acute Assessment and Plan Recurrent ischemic colitis. Tele with NSR, no evidence of a fib. He will need prolonged event monitoring for a fib at the [place], if negative, then LINQ loop monitor placement. Increase activity, PT. Song Arzate MD Jan 01, 2018 17:40
[2018-01-01] MEDS: TAMSULOSIN HCL 0.4 MG CAP PO SCH (20:57)
[2018-01-02] VITALS (7 sets, daily range): BP systolic 100–119; BP diastolic 56–80; PULSE 75–95; RESP 18–21; TEMP 97.5–98.5; O2SAT 94–97
[2018-01-02] MEDS: PANTOPRAZOLE SODIUM 40 MG VIAL IV PUSH SCH ×2 (03:35→15:20)
[2018-01-02] MEDS: metroNIDAZOLE 500 MG INJ 100 ML IV SCH ×4 (06:00→23:25)
[2018-01-02] MEDS: NS + KCL 20 MEQ INJ 1,000 ML IV SCH ×2 (06:18→17:32)
[2018-01-02] MEDS: INSULIN ASPART SUPPLEMENTAL SCALE SQ SCH ×4 (08:00→21:00)
[2018-01-02] MEDS: SODIUM CHLORIDE 0.9% FLUSH 10 ML FLUSH IV FLUSH SCH ×2 (09:00→21:00)
--- NOTE | 2018-01-02 09:02 | PD.CARD.PN ---
Subjective Subjective Remarks No CP or SOB, abd pain improving, eating breakfast Objective Medications Current Medications Medications (Trade) Dose Ordered Sig/Raman Route Start Time Stop Time Status Last Admin (NS Flush) 2 ml UNSCH PRN IV FLUSH 12/31/17 11:30 (NS Flush) 2 ml BID IV FLUSH 12/31/17 21:00 12/31/17 21:00 (Narcan Inj) 0.4 mg UNSCH PRN IV PUSH 12/31/17 11:30 Ciprofloxacin/ Dextrose 200 ml @ 200 mls/hr Q12H IV 12/31/17 23:00 01/01/18 23:19 Metronidazole 100 ml @ 100 mls/hr Q6H IV 12/31/17 18:00 01/02/18 06:00 (D50w (Vial) Inj) 50 ml UNSCH PRN IV PUSH 12/31/17 11:30 (Glucagon Inj) 1 mg UNSCH PRN OTHER 12/31/17 11:30 (Morphine Inj) 4 mg Q3H PRN IV PUSH 12/31/17 13:00 01/01/18 23:26 (Protonix Inj) 40 mg Q12H IV PUSH 12/31/17 16:00 01/02/18 03:35 (Flomax) 0.4 mg HS PO 12/31/17 21:00 01/01/18 20:57 Potassium Chloride/Dextrose/ Sod Cl 1,000 ml @ 75 mls/hr [id number] PRN IV 01/01/18 12:00 Potassium Chloride/Sodium Chloride 1,000 ml @ 100 mls/hr Q10H IV 01/01/18 12:00 01/02/18 06:18 (NovoLOG SUPPLEMENTAL SCALE) 1 ACHS SLIDING SCALE SQ 01/01/18 12:00 01/01/18 14:00 Lactated Ringer's 1,000 ml @ 30 mls/hr Q24H PRN IV 01/01/18 10:45 01/04/18 10:44 Sodium Chloride 500 ml @ 30 mls/hr [id number] PRN IV 01/01/18 10:45 01/04/18 10:44 (Lopressor) 25 mg RN TELEPHONIC PRN PO 01/01/18 10:45 01/04/18 10:44 (Betadine 5% Antisepsis Kit) 1 applic RN TELEPHONIC PRN EACH NARE 01/01/18 10:45 01/04/18 10:44 (Chlorhexidine 2% Cloth) 3 pack RN TELEPHONIC PRN TOPICAL 01/01/18 10:45 01/04/18 10:44 Vital Signs / I&O Vital Signs Date Time Temp Pulse Resp B/P (MAP) Pulse Ox O2 Delivery O2 Flow Rate FiO2 01/02/18 04:00 98.2 78 18 104/61 (75) 94 01/02/18 04:00 79 01/02/18 04:00 Room Air 01/02/18 00:00 98.4 86 18 101/63 (76) 94 01/02/18 00:00 Room Air 01/02/18 00:00 80 01/01/18 20:00 98.6 87 18 103/92 (96) 96 01/01/18 20:00 Room Air 01/01/18 20:00 83 01/01/18 17:00 100 01/01/18 16:00 99.4 97 20 127/66 (86) 94 01/01/18 12:00 98.5 93 20 116/73 (87) 97 01/01/18 10:15 139/67 (91) 01/01/18 09:54 98.4 82 18 103/63 (76) 94 I/O 01/01/18 01/01/18 01/01/18 01/02/18 01/02/18 01/02/18 07:00 15:00 23:00 07:00 15:00 23:00 Intake Total 2018 ml 500 ml 1840 ml 1540 ml Balance 2018 ml 500 ml 1840 ml 1540 ml Intake Oral 240 ml 240 ml 240 ml IV Total 1778 ml 300 ml 1600 ml 1300 ml Other 200 ml # Voids 6 4 2 # Bowel Movements 6 1 2 2 Physical Exam GENERAL: In NAD. SKIN: Warm and dry. HEAD: Normocephalic. EYES: No scleral icterus. No injection or drainage. NECK: Supple, trachea midline. No JVD or lymphadenopathy. CARDIOVASCULAR: Regular rate and rhythm without murmurs, gallops, or rubs. RESPIRATORY: Breath sounds equal bilaterally. No accessory muscle use. GASTROINTESTINAL: Abdomen soft, non-tender, nondistended. MUSCULOSKELETAL: No cyanosis, or edema. Assessment and Plan Problem List: (1) Colitis ICD Codes: K52.9 - Noninfective gastroenteritis and colitis, unspecified Status: Acute (2) Esophagitis ICD Codes: K20.9 - Esophagitis, unspecified (3) Intractable abdominal pain ICD Codes: R10.9 - Unspecified abdominal pain Status: Acute (4) GI bleed ICD Codes: K92.2 - Gastrointestinal hemorrhage Status: Acute Assessment and Plan No new cardiac issues. Diagnosed with recurrent ischemic colitis. Tele with NSR , no evidence of a fib. He will need prolonged event monitoring for a fib at the PA, if negative, then LINQ loop monitor placement. Increase activity, PT. Continue monitoring. Song Arzate MD Jan 02, 2018 09:02
[2018-01-02 09:47] LABS: AUTOMATED NEUTROPHIL # 3.8 TH/MM3 (1.8-7.7); BASOPHIL % 0.2 % (0.0-2.0); EOSINOPHIL % 0.6 % (0.0-4.0); HEMATOCRIT 35.3 % (39.0-51.0); HEMOGLOBIN 11.8 GM/DL (13.0-17.0); LYMPH % 23.2 % (9.0-44.0); LYMPHOCYTE # 1.3 TH/MM3 (1.0-4.8); MEAN CORPUSCULAR HEMOGLOBIN 31.4 PG (27.0-34.0); MEAN CORPUSCULAR HGB CONC 33.4 % (32.0-36.0); MEAN PLATELET VOLUME 7.7 FL (7.0-11.0); MONO % 9.9 % (0.0-8.0); MONOCYTE # 0.6 TH/MM3 (0-0.9); NEUT % 66.1 % (16.0-70.0); PLATELET COUNT 167 TH/MM3 (150-450); RED BLOOD COUNT 3.76 MIL/MM3 (4.50-5.90); RED CELL DISTRIBUTION WIDTH 15.4 % (11.6-17.2); WHITE BLOOD COUNT 5.7 TH/MM3 (4.0-11.0)
[2018-01-02 10:08] LABS: BICARBONATE 25.1 MEQ/L (21.0-32.0); CALCIUM 7.9 MG/DL (8.5-10.1); CREATININE 0.71 MG/DL (0.60-1.30); MAGNESIUM 2.4 MG/DL (1.5-2.5)
[2018-01-02 10:42] LABS: BANDS 8 % (0-6); BASOPHILS 2 % (0-2); LYMPHOCYTES 23 % (9-44); MONOCYTES 4 % (0-8); OVALOCYTES 1+ (NORMAL); POLYS (SEG NEUTROPHILS) 63 % (16-70)
--- NOTE | 2018-01-02 11:09 | HHI.PR ---
Subjective Remarks Follow-up colitis. Improving loose stools and abdominal pain no improving. Still with scant blood in the stools. Discussed with nursing Objective Vitals Vital Signs Date Time Temp Pulse Resp B/P (MAP) Pulse Ox O2 Delivery O2 Flow Rate FiO2 01/02/18 08:00 97.5 82 21 119/75 (90) 97 01/02/18 04:00 98.2 78 18 104/61 (75) 94 01/02/18 04:00 79 01/02/18 04:00 Room Air 01/02/18 00:00 98.4 86 18 101/63 (76) 94 01/02/18 00:00 Room Air 01/02/18 00:00 80 01/01/18 20:00 98.6 87 18 103/92 (96) 96 01/01/18 20:00 Room Air 01/01/18 20:00 83 01/01/18 17:00 100 01/01/18 16:00 99.4 97 20 127/66 (86) 94 01/01/18 12:00 98.5 93 20 116/73 (87) 97 I/O 01/01/18 01/01/18 01/01/18 01/02/18 01/02/18 01/02/18 07:00 15:00 23:00 07:00 15:00 23:00 Intake Total 2018 ml 500 ml 1840 ml 1540 ml Balance 2018 ml 500 ml 1840 ml 1540 ml Intake Oral 240 ml 240 ml 240 ml IV Total 1778 ml 300 ml 1600 ml 1300 ml Other 200 ml # Voids 6 4 2 # Bowel Movements 6 1 2 2 Result Diagram: 01/02/18 0808 01/02/18 0808 Imaging Last Impressions Abdomen/Pelvis CT 01/01/18 0000 Signed Impressions: Service Date/Time: Monday, January 01, 2018 11:42 - CONCLUSION: 1. The exam demonstrates colonic thickening beginning at the level of the mid transverse and extending down to the distal descending colon. There are inflammatory changes within the left paracolic gutter. Findings would be consistent with a colitis. No evidence of perforation identified. Ori Potts MD Objective Remarks GENERAL: This is a well-nourished, well-developed patient, in no apparent distress. SKIN: No rashes, ecchymoses or lesions. Cool and dry. CARDIOVASCULAR: Regular rate and rhythm without murmurs, gallops, or rubs. RESPIRATORY: Clear to auscultation. Breath sounds equal bilaterally. No wheezes , rales, or rhonchi. GASTROINTESTINAL: Abdomen soft, tender right and lower quadrants, nondistended. No guarding. MUSCULOSKELETAL: Extremities without clubbing, cyanosis, or edema No calf tenderness. NEUROLOGICAL: Awake and alert. Motor and sensory grossly within normal limits. Normal speech. Procedures EGD and Cscope A/P Problem List: (1) Colitis ICD Code: K52.9 - Noninfective gastroenteritis and colitis, unspecified Status: Acute Assessment and Plan Ischemic versus infectious colitis status post colonoscopy which showed diffuse colitis involving the descending and transverse colon stool studies negative to date. Antral biopsy without significant histologic abnormality. No H. pylori organisms. Esophagus biopsy with mildly active chronic inflammation and edema negative for intestinal metaplasia and glandular dysplasia. Sigmoid biopsy with acute colitis with no specific features. CTA with no stenosis. Continue supportive therapy, IV ciprofloxacin and Flagyl and pain management with IV morphine. Continue full liquid diet advance as tolerated. Per GI repeat EGD in 1 year and colonoscopy in 1 month Bandemia possible sepsis secondary to above Immunocompromised state on Humira and methotrexate. Humira and methotrexate currently on hold Suspect underlying A. fib causing ischemic bowel. This is the second time. Cardiology recommending outpatient monitor or loop recorder Chronic medical conditions of diabetes mellitus hyperlipidemia, hypertension, rheumatoid arthritis, gouty arthritis, osteoarthritis, and PTSD. Continue outpatient medications as appropriate. Monitor fingersticks with sliding scale coverage. DVT prophylaxis with SCD and early ambulation. Hold pharmacological prophylaxis secondary to GI bleed. Discharge Planning Possible discharge in 1-3 days when cleared by GI and general surgery will need home health care Daniel Farfan MD Jan 02, 2018 11:09
[2018-01-02] MEDS: CIPROFLOXACIN 400 MG PREMIX 200 ML IV SCH ×2 (11:28→22:15)
--- NOTE | 2018-01-02 12:47 | HHI.PR ---
cc: Darren Garzon MD Subjective Subjective Notes Resting in bed Feeling better Has been off Morphine most of the night Objective Vitals/I&O Vital Signs Date Time Temp Pulse Resp B/P (MAP) Pulse Ox O2 Delivery O2 Flow Rate FiO2 01/02/18 12:00 98.3 84 20 100/56 (71) 95 01/02/18 04:00 Room Air Labs Laboratory Tests Test 01/02/18 08:08 White Blood Count 5.7 Red Blood Count 3.76 Hemoglobin 11.8 Hematocrit 35.3 Mean Corpuscular Volume 94.0 Mean Corpuscular Hemoglobin 31.4 Mean Corpuscular Hemoglobin Concent 33.4 Red Cell Distribution Width 15.4 Platelet Count 167 Mean Platelet Volume 7.7 Neutrophils (%) (Auto) 66.1 Lymphocytes (%) (Auto) 23.2 Monocytes (%) (Auto) 9.9 Eosinophils (%) (Auto) 0.6 Basophils (%) (Auto) 0.2 Neutrophils # (Auto) 3.8 Lymphocytes # (Auto) 1.3 Monocytes # (Auto) 0.6 Eosinophils # (Auto) 0.0 Basophils # (Auto) 0.0 CBC Comment AUTO DIFF Differential Total Cells Counted 100 Neutrophils % (Manual) 63 Band Neutrophils % 8 Lymphocytes % 23 Monocytes % 4 Basophils % 2 Neutrophils # (Manual) 4.0 Differential Comment FINAL DIFF MANUAL Platelet Estimate NORMAL Platelet Morphology Comment NORMAL Ovalocytes 1+ Blood Urea Nitrogen 6 Creatinine 0.71 Random Glucose 123 Calcium Level 7.9 Magnesium Level 2.4 Sodium Level 140 Potassium Level 4.5 Chloride Level 108 Carbon Dioxide Level 25.1 Anion Gap 7 Estimat Glomerular Filtration Rate 135 Date/Time Source Procedure Growth Status 12/31/17 22:10 Stool Stool Cryptosporidium Exam Pending Received 12/31/17 22:10 Stool Stool Giardia Antigen (AMARJIT) Pending Received Cardiovascular: Regular Lungs: Clear Abdomen: Other (minimal tenderness with palpatoion ) Extremities: No edema A/P Assessment and Plan 62 year old male with abdominal pain; colitis -Continue IVF -Continue Cipro/Flagyl -Advance diet as tolerated -S/P EGD----shows esophagitis -S/P colonoscopy--- diffuse colitis in descending colon and transverse colon -Will continue to follow abdominal exam ---improved today Attending Statement patient seen at bedside doing better still with pain will follow with exams may need operative intervention Attestation The exam, history, and the medical decision-making described in the above note were completed with the assistance of the mid-level provider. I reviewed and agree with the findings presented. I attest that I had a [id number] encounter with the patient on the same day, and personally performed and documented my assessment and findings in the medical record. Patricia March. AUTO DAMAGE APPRAISER/Route Aide AUTO DAMAGE APPRAISER Jan 02, 2018 12:47 Darren Garzon MD Jan 06, 2018 21:30
[2018-01-02] MEDS: MORPHINE SULFATE 4 MG/ML INJ IV PUSH PRN ×2 (13:37→23:35)
--- NOTE | 2018-01-02 15:52 | HHI.GIFU ---
Subjective Remarks Pt resting in bed, quite talkative. Overall he was feeling better but had return of lower abd cramping and diarrhea after eating a liquid lunch. He says there was scant blood. (Lynne Ponce) Objective Vitals I&O Vital Signs Date Time Temp Pulse Resp B/P (MAP) Pulse Ox O2 Delivery O2 Flow Rate FiO2 01/02/18 12:00 98.3 84 20 100/56 (71) 95 01/02/18 08:00 97.5 82 21 119/75 (90) 97 01/02/18 04:00 98.2 78 18 104/61 (75) 94 01/02/18 04:00 79 01/02/18 04:00 Room Air 01/02/18 00:00 98.4 86 18 101/63 (76) 94 01/02/18 00:00 Room Air 01/02/18 00:00 80 01/01/18 20:00 98.6 87 18 103/92 (96) 96 01/01/18 20:00 Room Air 01/01/18 20:00 83 01/01/18 17:00 100 01/01/18 16:00 99.4 97 20 127/66 (86) 94 I/O 01/01/18 01/01/18 01/01/18 01/02/18 01/02/18 01/02/18 07:00 15:00 23:00 07:00 15:00 23:00 Intake Total 2018 ml 500 ml 1840 ml 1540 ml Balance 2018 ml 500 ml 1840 ml 1540 ml Intake Oral 240 ml 240 ml 240 ml IV Total 1778 ml 300 ml 1600 ml 1300 ml Other 200 ml # Voids 6 4 2 # Bowel Movements 6 1 2 2 Laboratory Laboratory Tests Test 01/02/18 08:08 White Blood Count 5.7 Red Blood Count 3.76 Hemoglobin 11.8 Hematocrit 35.3 Mean Corpuscular Volume 94.0 Mean Corpuscular Hemoglobin 31.4 Mean Corpuscular Hemoglobin Concent 33.4 Red Cell Distribution Width 15.4 Platelet Count 167 Mean Platelet Volume 7.7 Neutrophils (%) (Auto) 66.1 Lymphocytes (%) (Auto) 23.2 Monocytes (%) (Auto) 9.9 Eosinophils (%) (Auto) 0.6 Basophils (%) (Auto) 0.2 Neutrophils # (Auto) 3.8 Lymphocytes # (Auto) 1.3 Monocytes # (Auto) 0.6 Eosinophils # (Auto) 0.0 Basophils # (Auto) 0.0 CBC Comment AUTO DIFF Differential Total Cells Counted 100 Neutrophils % (Manual) 63 Band Neutrophils % 8 Lymphocytes % 23 Monocytes % 4 Basophils % 2 Neutrophils # (Manual) 4.0 Differential Comment FINAL DIFF MANUAL Platelet Estimate NORMAL Platelet Morphology Comment NORMAL Ovalocytes 1+ Blood Urea Nitrogen 6 Creatinine 0.71 Random Glucose 123 Calcium Level 7.9 Magnesium Level 2.4 Sodium Level 140 Potassium Level 4.5 Chloride Level 108 Carbon Dioxide Level 25.1 Anion Gap 7 Estimat Glomerular Filtration Rate 135 Date/Time Source Procedure Growth Status 12/31/17 22:10 Stool Stool Cryptosporidium Exam Pending Received 12/31/17 22:10 Stool Stool Giardia Antigen (AMARJIT) Pending Received Imaging Last Impressions Abdomen/Pelvis CT 01/01/18 0000 Signed Impressions: Service Date/Time: Monday, January 01, 2018 11:42 - CONCLUSION: 1. The exam demonstrates colonic thickening beginning at the level of the mid transverse and extending down to the distal descending colon. There are inflammatory changes within the left paracolic gutter. Findings would be consistent with a colitis. No evidence of perforation identified. Ori Potts MD Physical Exam HEENT: PERRL; normocephalic; atraumatic; no jaundice. CHEST: CTA CARDIAC: RRR ABDOMEN: Soft, distended,lower quadrant TTP; no hepatosplenomegaly; bowel sounds are present in all four quadrants. EXTREMITIES: No clubbing, cyanosis, or edema. SKIN: Normal; no rash; no jaundice. [employer]PER[employer] SPECIALIST: No focal deficits; alert and oriented times three. (Lynne Pocne [facility]) Assessment and Plan Plan Assessment: - Abdominal pain and swelling- diffusely TTP, has had intermittent abdominal pain since admission with diagnosis of ischemic colitis in January but has been increasing in intensity and severity since Sunday to the point he was crawling on his knees earlier Colonoscopy January 2017 --> Transverse colon contained some spotty colitis which was brightly erythematous. Descending and sigmoid colon was more severe confluent colitis consistent with ischemia. Small subcentimeter polyp in the rectum. Large internal hemorrhoids with some localized inflammation. Pathology consistent with ischemic colitis CT abdomen and pelvis (12/31) --> Normal segment of colon involving transverse colon and proximal descending colon, characterized by mild wall thickening and induration of the fat surrounding the involved segment. - BRBPR- states intermittent since January, but has had multiple episodes since Sunday - Nausea, denies emesis - Arthritis- on Humira and Methotrexate 01/02/18 s/p EGD and colonoscopy with findings esophagitis, erythematous gastritis, duodenal inflammation; circumferential colitis consistent with ischemia, hemorrhoids. CT showing colitis. pt was feeling better until after lunch when he had lower abd pain and recurrence diarrhea with scant blood. stool neg for enteric pathogens. stomach and esophagus bx benign. colon bx acute colitis features nonspecific. Plan: TID bentyl 10mg continue full liquids for now pain mgmt monitor labs supportive care colonoscopy 1 month EGD 1 year Pt has been seen and examined by myself and Dr. Landaverde and this note is written on his behalf (Lynne Ponce) Physician Comments Seen and examined with [facility], s/p egd/colonoscopy. Biopsies show acute colitis. Suspect ischemic. CTA normal. Discussed with Dr. Garzon. Continue antibiotics and IV hydration. Add bentyl. (Tyrone Landaverde MD) Lynne Ponce Jan 02, 2018 15:52 Tyrone Landaverde MD Jan 02, 2018 16:56
[2018-01-02] MEDS: DICYCLOMINE HCL 10 MG CAP PO SCH (18:58)
[2018-01-02] MEDS: TAMSULOSIN HCL 0.4 MG CAP PO SCH (22:15)
[2018-01-02] MEDS: PANTOPRAZOLE SOD 40 MG DELAYED RELEASE TAB PO SCH (22:15)
[2018-01-03] VITALS (8 sets, daily range): BP systolic 111–126; BP diastolic 57–83; PULSE 62–95; RESP 18–20; TEMP 98.1–98.6; O2SAT 95–97
[2018-01-03] MEDS: NS + KCL 20 MEQ INJ 1,000 ML IV SCH ×2 (03:59→16:22)
[2018-01-03] MEDS: MORPHINE SULFATE 4 MG/ML INJ IV PUSH PRN ×2 (04:00→22:11)
[2018-01-03] MEDS: metroNIDAZOLE 500 MG INJ 100 ML IV SCH ×4 (06:00→23:26)
[2018-01-03 08:53] LABS: AUTOMATED NEUTROPHIL # 2.6 TH/MM3 (1.8-7.7); BASOPHIL % 0.3 % (0.0-2.0); EOSINOPHIL # 0.1 TH/MM3 (0-0.4); EOSINOPHIL % 1.3 % (0.0-4.0); HEMATOCRIT 35.8 % (39.0-51.0); LYMPH % 31.6 % (9.0-44.0); LYMPHOCYTE # 1.5 TH/MM3 (1.0-4.8); MEAN CELL VOLUME 93.9 FL (80.0-100.0); MEAN CORPUSCULAR HEMOGLOBIN 31.6 PG (27.0-34.0); MEAN CORPUSCULAR HGB CONC 33.6 % (32.0-36.0); MEAN PLATELET VOLUME 7.5 FL (7.0-11.0); MONOCYTE # 0.5 TH/MM3 (0-0.9); NEUT % 56.8 % (16.0-70.0); PLATELET COUNT 177 TH/MM3 (150-450); RED BLOOD COUNT 3.81 MIL/MM3 (4.50-5.90); RED CELL DISTRIBUTION WIDTH 15.7 % (11.6-17.2); WHITE BLOOD COUNT 4.6 TH/MM3 (4.0-11.0)
[2018-01-03] MEDS: SODIUM CHLORIDE 0.9% FLUSH 10 ML FLUSH IV FLUSH SCH ×2 (09:00→22:12)
[2018-01-03 09:23] LABS: CREATININE 0.75 MG/DL (0.60-1.30)
[2018-01-03] MEDS: DICYCLOMINE HCL 10 MG CAP PO SCH ×3 (09:33→17:39)
[2018-01-03] MEDS: INSULIN ASPART SUPPLEMENTAL SCALE SQ SCH ×4 (09:33→22:11)
[2018-01-03] MEDS: PANTOPRAZOLE SOD 40 MG DELAYED RELEASE TAB PO SCH ×2 (09:33→22:07)
[2018-01-03 09:57] LABS: CHOLESTEROL/ HDL RATIO 2.79 RATIO; HDL CHOLESTEROL 42.9 MG/DL (40.0-60.0)
[2018-01-03 09:58] LABS: BANDS 9 % (0-6); LYMPHOCYTES 18 % (9-44); MONOCYTES 5 % (0-8); MYELOCYTES 3 % (0-0); NEUTROPHIL # MANUAL DIFF 3.4 TH/MM3 (1.8-7.7); OVALOCYTES 1+ (NORMAL); POLYS (SEG NEUTROPHILS) 61 % (16-70)
--- NOTE | 2018-01-03 10:12 | PD.CARD.PN ---
Subjective Subjective Remarks No CP or SOB, still with mild abdominal pain, trying to eat breakfast Objective Medications Current Medications Medications (Trade) Dose Ordered Sig/Raman Route Start Time Stop Time Status Last Admin (NS Flush) 2 ml UNSCH PRN IV FLUSH 12/31/17 11:30 (NS Flush) 2 ml BID IV FLUSH 12/31/17 21:00 01/03/18 09:00 (Narcan Inj) 0.4 mg UNSCH PRN IV PUSH 12/31/17 11:30 Ciprofloxacin/ Dextrose 200 ml @ 200 mls/hr Q12H IV 12/31/17 23:00 01/02/18 22:15 Metronidazole 100 ml @ 100 mls/hr Q6H IV 12/31/17 18:00 01/03/18 06:00 (D50w (Vial) Inj) 50 ml UNSCH PRN IV PUSH 12/31/17 11:30 (Glucagon Inj) 1 mg UNSCH PRN OTHER 12/31/17 11:30 (Morphine Inj) 4 mg Q3H PRN IV PUSH 12/31/17 13:00 01/03/18 04:00 (Flomax) 0.4 mg HS PO 12/31/17 21:00 01/02/18 22:15 Potassium Chloride/Dextrose/ Sod Cl 1,000 ml @ 75 mls/hr [id number] PRN IV 01/01/18 12:00 Potassium Chloride/Sodium Chloride 1,000 ml @ 100 mls/hr Q10H IV 01/01/18 12:00 01/03/18 03:59 (NovoLOG SUPPLEMENTAL SCALE) 1 ACHS SLIDING SCALE SQ 01/01/18 12:00 01/03/18 09:33 Lactated Ringer's 1,000 ml @ 30 mls/hr Q24H PRN IV 01/01/18 10:45 01/04/18 10:44 Sodium Chloride 500 ml @ 30 mls/hr [id number] PRN IV 01/01/18 10:45 01/04/18 10:44 (Lopressor) 25 mg HEEL EDGE INKER MACHINE PRN PO 01/01/18 10:45 01/04/18 10:44 (Betadine 5% Antisepsis Kit) 1 applic HEEL EDGE INKER MACHINE PRN EACH NARE 01/01/18 10:45 01/04/18 10:44 (Chlorhexidine 2% Cloth) 3 pack HEEL [employer]GE INKER MACHINE PRN TOPICAL 01/01/18 10:45 01/04/18 10:44 (Bentyl) 10 mg TID PO 01/02/18 18:00 01/03/18 09:33 (Protonix) 40 mg Q12HR PO 01/02/18 21:00 01/03/18 09:33 Vital Signs / I&O Vital Signs Date Time Temp Pulse Resp B/P (MAP) Pulse Ox O2 Delivery O2 Flow Rate FiO2 01/03/18 09:03 98.4 74 20 125/59 (81) 95 01/03/18 04:00 77 01/03/18 00:00 69 01/03/18 00:00 98.1 86 20 111/57 (75) 97 01/03/18 00:00 Room Air 01/02/18 20:05 75 01/02/18 20:00 Room Air 01/02/18 20:00 98.5 77 18 102/67 (79) 97 01/02/18 16:00 98.4 95 19 119/80 (93) 95 01/02/18 12:00 98.3 84 20 100/56 (71) 95 I/O 01/02/18 01/02/18 01/02/18 01/03/18 01/03/18 01/03/18 07:00 15:00 23:00 07:00 15:00 23:00 Intake Total 1540 ml 600 ml 1987 ml Balance 1540 ml 600 ml 1987 ml Intake Oral 240 ml 600 ml 710 ml IV Total 1300 ml 1277 ml # Voids 2 3 4 # Bowel Movements 2 2 2 Physical Exam GENERAL: In NAD. SKIN: Warm and dry. HEAD: Normocephalic. EYES: No scleral icterus. No injection or drainage. NECK: Supple, trachea midline. No JVD or lymphadenopathy. CARDIOVASCULAR: Regular rate and rhythm without murmurs, gallops, or rubs. RESPIRATORY: Breath sounds equal bilaterally. No accessory muscle use. GASTROINTESTINAL: Abdomen soft, non-tender, nondistended. MUSCULOSKELETAL: No cyanosis, or edema. Laboratory Laboratory Tests Test 01/03/18 08:02 White Blood Count 4.6 TH/MM3 Red Blood Count 3.81 MIL/MM3 Hemoglobin 12.0 GM/DL Hematocrit 35.8 % Mean Corpuscular Volume 93.9 FL Mean Corpuscular Hemoglobin 31.6 PG Mean Corpuscular Hemoglobin Concent 33.6 % Red Cell Distribution Width 15.7 % Platelet Count 177 TH/MM3 Mean Platelet Volume 7.5 FL Neutrophils (%) (Auto) 56.8 % Lymphocytes (%) (Auto) 31.6 % Monocytes (%) (Auto) 10.0 % Eosinophils (%) (Auto) 1.3 % Basophils (%) (Auto) 0.3 % Neutrophils # (Auto) 2.6 TH/MM3 Lymphocytes # (Auto) 1.5 TH/MM3 Monocytes # (Auto) 0.5 TH/MM3 Eosinophils # (Auto) 0.1 TH/MM3 Basophils # (Auto) 0.0 TH/MM3 CBC Comment AUTO DIFF Differential Total Cells Counted 100 Neutrophils % (Manual) 61 % Band Neutrophils % 9 % Lymphocytes % 18 % Monocytes % 5 % Eosinophils % 4 % Neutrophils # (Manual) 3.4 TH/MM3 Myelocytes 3 % Differential Comment FINAL DIFF MANUAL Atypical Lymphocytes % Platelet Estimate NORMAL Platelet Morphology Comment NORMAL Ovalocytes 1+ Blood Urea Nitrogen 5 MG/DL Creatinine 0.75 MG/DL Random Glucose 124 MG/DL Calcium Level 8.0 MG/DL Magnesium Level 2.0 MG/DL Sodium Level 140 MEQ/L Potassium Level 4.1 MEQ/L Chloride Level 108 MEQ/L Carbon Dioxide Level 25.0 MEQ/L Anion Gap 7 MEQ/L Estimat Glomerular Filtration Rate 127 ML/MIN Triglycerides Level 56 MG/DL Cholesterol Level 120 MG/DL LDL Cholesterol 66 MG/DL HDL Cholesterol 42.9 MG/DL Cholesterol/HDL Ratio 2.79 RATIO Assessment and Plan Problem List: (1) Colitis ICD Codes: K52.9 - Noninfective gastroenteritis and colitis, unspecified Status: Acute (2) Esophagitis ICD Codes: K20.9 - Esophagitis, unspecified (3) Intractable abdominal pain ICD Codes: R10.9 - Unspecified abdominal pain Status: Acute (4) GI bleed ICD Codes: K92.2 - Gastrointestinal hemorrhage Status: Acute Assessment and Plan Remains stable from cardiac standpoint. Tele with SR, no evidence of AF. Diagnosed with recurrent ischemic colitis, possibly of cardiac embolic origin. He will need prolonged outpatient event monitoring for a fib, if negative, then LINQ loop monitor placement. Increase activity, PT. Continue monitoring. He will be seen back at the [facility] after discharge, if [facility] wishes us to see him as outpatient, will schedule outpatient cardiac f/u. Song Arzate MD Jan 03, 2018 10:12
[2018-01-03] MEDS: CIPROFLOXACIN 400 MG PREMIX 200 ML IV SCH ×2 (12:44→22:20)
--- NOTE | 2018-01-03 14:15 | HHI.PR ---
Subjective Remarks Follow-up colitis. Still with intermittent abdominal pain and loose stools admixed with blood. Per patient, he wants to proceed with surgery as recommended by general surgery (which I have to confirm) discussed with nursing Objective Vitals Vital Signs Date Time Temp Pulse Resp B/P (MAP) Pulse Ox O2 Delivery O2 Flow Rate FiO2 01/03/18 12:24 98.5 79 20 120/65 (83) 95 01/03/18 09:03 98.4 74 20 125/59 (81) 95 01/03/18 04:00 77 01/03/18 00:00 69 01/03/18 00:00 98.1 86 20 111/57 (75) 97 01/03/18 00:00 Room Air 01/02/18 20:05 75 01/02/18 20:00 Room Air 01/02/18 20:00 98.5 77 18 102/67 (79) 97 01/02/18 16:00 98.4 95 19 119/80 (93) 95 I/O 01/02/18 01/02/18 01/02/18 01/03/18 01/03/18 01/03/18 07:00 15:00 23:00 07:00 15:00 23:00 Intake Total 1540 ml 600 ml 1987 ml Balance 1540 ml 600 ml 1987 ml Intake Oral 240 ml 600 ml 710 ml IV Total 1300 ml 1277 ml # Voids 2 3 4 # Bowel Movements 2 2 2 Result Diagram: 01/03/18 0802 01/03/18 0802 Imaging Last Impressions Abdomen/Pelvis CT 01/01/18 0000 Signed Impressions: Service Date/Time: Monday, January 01, 2018 11:42 - CONCLUSION: 1. The exam demonstrates colonic thickening beginning at the level of the mid transverse and extending down to the distal descending colon. There are inflammatory changes within the left paracolic gutter. Findings would be consistent with a colitis. No evidence of perforation identified. Ori Potts MD Objective Remarks GENERAL: This is a well-nourished, well-developed patient, in no apparent distress. SKIN: No rashes, ecchymoses or lesions. Cool and dry. CARDIOVASCULAR: Regular rate and rhythm without murmurs, gallops, or rubs. RESPIRATORY: Clear to auscultation. Breath sounds equal bilaterally. No wheezes , rales, or rhonchi. GASTROINTESTINAL: Abdomen soft, tender right and lower quadrants, nondistended. No guarding. MUSCULOSKELETAL: Extremities without clubbing, cyanosis, or edema No calf tenderness. NEUROLOGICAL: Awake and alert. Motor and sensory grossly within normal limits. Normal speech. Procedures EGD and Cscope A/P Problem List: (1) Colitis ICD Code: K52.9 - Noninfective gastroenteritis and colitis, unspecified Status: Acute Assessment and Plan Ischemic versus infectious colitis status post colonoscopy which showed diffuse colitis involving the descending and transverse colon stool studies negative to date. Antral biopsy without significant histologic abnormality. No H. pylori organisms. Esophagus biopsy with mildly active chronic inflammation and edema negative for intestinal metaplasia and glandular dysplasia. Sigmoid biopsy with acute colitis with no specific features. CTA with no stenosis. Flow studies negative to date. Continue supportive therapy, IV ciprofloxacin and Flagyl and pain management with IV morphine. Continue full liquid diet advance as tolerated. Per GI repeat EGD in 1 year and colonoscopy in 1 month Bandemia possible sepsis secondary to above Immunocompromised state on Humira and methotrexate. Humira and methotrexate currently on hold Suspect underlying A. fib causing ischemic bowel. This is the second time. Cardiology recommending outpatient event monitor or loop recorder Chronic medical conditions of diabetes mellitus hyperlipidemia, hypertension, rheumatoid arthritis, gouty arthritis, osteoarthritis, and PTSD. Continue outpatient medications as appropriate. Monitor fingersticks with sliding scale coverage. DVT prophylaxis with SCD and early ambulation. Hold pharmacological prophylaxis secondary to GI bleed. Discharge Planning Will clarify with [facility] if surgery is being contemplated. Will need cardiac clearance Daniel Farfan MD Jan 03, 2018 14:15
--- NOTE | 2018-01-03 14:23 | HHI.PR ---
cc: Darren Garzon MD Subjective Subjective Notes Resting in bed Has uneventful night Feeling better Objective Vitals/I&O Vital Signs Date Time Temp Pulse Resp B/P (MAP) Pulse Ox O2 Delivery O2 Flow Rate FiO2 01/03/18 12:24 98.5 79 20 120/65 (83) 95 01/03/18 00:00 Room Air Labs Laboratory Tests Test 01/03/18 08:02 White Blood Count 4.6 Red Blood Count 3.81 Hemoglobin 12.0 Hematocrit 35.8 Mean Corpuscular Volume 93.9 Mean Corpuscular Hemoglobin 31.6 Mean Corpuscular Hemoglobin Concent 33.6 Red Cell Distribution Width 15.7 Platelet Count 177 Mean Platelet Volume 7.5 Neutrophils (%) (Auto) 56.8 Lymphocytes (%) (Auto) 31.6 Monocytes (%) (Auto) 10.0 Eosinophils (%) (Auto) 1.3 Basophils (%) (Auto) 0.3 Neutrophils # (Auto) 2.6 Lymphocytes # (Auto) 1.5 Monocytes # (Auto) 0.5 Eosinophils # (Auto) 0.1 Basophils # (Auto) 0.0 CBC Comment AUTO DIFF Differential Total Cells Counted 100 Neutrophils % (Manual) 61 Band Neutrophils % 9 Lymphocytes % 18 Monocytes % 5 Eosinophils % 4 Neutrophils # (Manual) 3.4 Myelocytes 3 Differential Comment FINAL DIFF MANUAL Atypical Lymphocytes Platelet Estimate NORMAL Platelet Morphology Comment NORMAL Ovalocytes 1+ Blood Urea Nitrogen 5 Creatinine 0.75 Random Glucose 124 Calcium Level 8.0 Magnesium Level 2.0 Sodium Level 140 Potassium Level 4.1 Chloride Level 108 Carbon Dioxide Level 25.0 Anion Gap 7 Estimat Glomerular Filtration Rate 127 Triglycerides Level 56 Cholesterol Level 120 LDL Cholesterol 66 HDL Cholesterol 42.9 Cholesterol/HDL Ratio 2.79 Date/Time Source Procedure Growth Status 12/31/17 22:10 Stool Stool Cryptosporidium Exam - Final NEGATIVE - NO CRYPTOSPORIDIUM ANTIGEN... Complete 12/31/17 22:10 Stool Stool Giardia Antigen (AMARJIT) - Final NEGATIVE - NO GIARDIA ANTIGEN DETECTE... Complete Cardiovascular: Regular Lungs: Clear Abdomen: Other (minimal tenderness in bilateral lower quadrants ) Extremities: No edema A/P Assessment and Plan 62 year old male with abdominal pain; colitis -Continue Cipro/Flagyl -Advance diet as tolerated -S/P EGD----shows esophagitis -S/P colonoscopy--- diffuse colitis in descending colon and transverse colon -Will continue to follow abdominal exam ---improved today -Will continue to discuss possible surgical intervention; Obtain Cardiology clearance -Discussed with Dr. Farfan Attending Statement patient seen at bedside possible surgical intervention will ask cardio for optimization Attestation The exam, history, and the medical decision-making described in the above note were completed with the assistance of the mid-level provider. I reviewed and agree with the findings presented. I attest that I had a [id number] encounter with the patient on the same day, and personally performed and documented my assessment and findings in the medical record. Patricia MarchP/[employer] Jan 03, 2018 14:23 Darren Garzon MD Jan 06, 2018 21:33
--- NOTE | 2018-01-03 15:08 | HHI.GIFU ---
Subjective Remarks Sitting up in chair attempting to relax a little Discussing his medical options and faults behind possible surgery or not Afebrile Still having some decreased appetite as well as left and right lower abdominal pain (Tania Torre) Objective Vitals I&O Vital Signs Date Time Temp Pulse Resp B/P (MAP) Pulse Ox O2 Delivery O2 Flow Rate FiO2 01/03/18 12:24 98.5 79 20 120/65 (83) 95 01/03/18 09:03 98.4 74 20 125/59 (81) 95 01/03/18 04:00 77 01/03/18 00:00 69 01/03/18 00:00 98.1 86 20 111/57 (75) 97 01/03/18 00:00 Room Air 01/02/18 20:05 75 01/02/18 20:00 Room Air 01/02/18 20:00 98.5 77 18 102/67 (79) 97 01/02/18 16:00 98.4 95 19 119/80 (93) 95 I/O 01/02/18 01/02/18 01/02/18 01/03/18 01/03/18 01/03/18 07:00 15:00 23:00 07:00 15:00 23:00 Intake Total 1540 ml 600 ml 1987 ml Balance 1540 ml 600 ml 1987 ml Intake Oral 240 ml 600 ml 710 ml IV Total 1300 ml 1277 ml # Voids 2 3 4 # Bowel Movements 2 2 2 Laboratory Laboratory Tests Test 01/03/18 08:02 White Blood Count 4.6 Red Blood Count 3.81 Hemoglobin 12.0 Hematocrit 35.8 Mean Corpuscular Volume 93.9 Mean Corpuscular Hemoglobin 31.6 Mean Corpuscular Hemoglobin Concent 33.6 Red Cell Distribution Width 15.7 Platelet Count 177 Mean Platelet Volume 7.5 Neutrophils (%) (Auto) 56.8 Lymphocytes (%) (Auto) 31.6 Monocytes (%) (Auto) 10.0 Eosinophils (%) (Auto) 1.3 Basophils (%) (Auto) 0.3 Neutrophils # (Auto) 2.6 Lymphocytes # (Auto) 1.5 Monocytes # (Auto) 0.5 Eosinophils # (Auto) 0.1 Basophils # (Auto) 0.0 CBC Comment AUTO DIFF Differential Total Cells Counted 100 Neutrophils % (Manual) 61 Band Neutrophils % 9 Lymphocytes % 18 Monocytes % 5 Eosinophils % 4 Neutrophils # (Manual) 3.4 Myelocytes 3 Differential Comment FINAL DIFF MANUAL Atypical Lymphocytes Platelet Estimate NORMAL Platelet Morphology Comment NORMAL Ovalocytes 1+ Blood Urea Nitrogen 5 Creatinine 0.75 Random Glucose 124 Calcium Level 8.0 Magnesium Level 2.0 Sodium Level 140 Potassium Level 4.1 Chloride Level 108 Carbon Dioxide Level 25.0 Anion Gap 7 Estimat Glomerular Filtration Rate 127 Triglycerides Level 56 Cholesterol Level 120 LDL Cholesterol 66 HDL Cholesterol 42.9 Cholesterol/HDL Ratio 2.79 Date/Time Source Procedure Growth Status 12/31/17 22:10 Stool Stool Cryptosporidium Exam - Final NEGATIVE - NO CRYPTOSPORIDIUM ANTIGEN... Complete 12/31/17 22:10 Stool Stool Giardia Antigen (AMARJIT) - Final NEGATIVE - NO GIARDIA ANTIGEN DETECTE... Complete Imaging Last Impressions Abdomen/Pelvis CT 01/01/18 0000 Signed Impressions: Service Date/Time: Monday, January 01, 2018 11:42 - CONCLUSION: 1. The exam demonstrates colonic thickening beginning at the level of the mid transverse and extending down to the distal descending colon. There are inflammatory changes within the left paracolic gutter. Findings would be consistent with a colitis. No evidence of perforation identified. Ori Potts MD Physical Exam HEENT: PERRL; normocephalic; atraumatic; no jaundice. CHEST: Essentially clear without obvious wheezing or rhonchi CARDIAC: RRR, palpable pulses, patient is also on telemetry ABDOMEN: Soft, mild distended,lower quadrant left and right with some discomfort to light palpation; no hepatosplenomegaly; bowel sounds are present in all four quadrants. EXTREMITIES: No clubbing, cyanosis, or edema. SKIN: Normal; no rash; no jaundice. SMEARER: No focal deficits; alert and oriented times three. (Tania Torre) Assessment and Plan Plan Assessment: - Abdominal pain and swelling- diffusely TTP, has had intermittent abdominal pain since admission with diagnosis of ischemic colitis in January but has been increasing in intensity and severity since Sunday to the point he was crawling on his knees earlier Colonoscopy January 2017 --> Transverse colon contained some spotty colitis which was brightly erythematous. Descending and sigmoid colon was more severe confluent colitis consistent with ischemia. Small subcentimeter polyp in the rectum. Large internal hemorrhoids with some localized inflammation. Pathology consistent with ischemic colitis CT abdomen and pelvis (12/31) --> Normal segment of colon involving transverse colon and proximal descending colon, characterized by mild wall thickening and induration of the fat surrounding the involved segment. - BRBPR- states intermittent since January, but has had multiple episodes since Sunday - Nausea, denies emesis - Arthritis- on Humira and Methotrexate 01/02/18 s/p EGD and colonoscopy with findings esophagitis, erythematous gastritis, duodenal inflammation; circumferential colitis consistent with ischemia, hemorrhoids. CT showing colitis. pt was feeling better until after lunch when he had lower abd pain and recurrence diarrhea with scant blood. stool neg for enteric pathogens. stomach and esophagus bx benign. colon bx acute colitis features nonspecific. 01/03/18, patient still complains of decreased appetite left and right lower abdominal cramping and pain to light palpation. 6 loose stools today but decreased bleeding noted. Current hemoglobin 12. Patient will need repeat colonoscopy in one month, EGD in 1 year. Appreciate input from , patient is discussing his options for surgery or not and also considering his quality of life. If he has surgery he wants it done here. Plan: TID bentyl 10mg PPI twice a day Cipro, Flagyl continue full liquids for now Increase activity up in chair daily monitor labs, monitor for any acute bleeding episodes Monitor labs supportive care colonoscopy 1 month EGD 1 year Pt has been seen and examined by myself and Dr. Landaverde and this note is written on his behalf (Tania Torre) Physician Comments Seen and examined with CHERYL, advance diet as tolerated. Probable ischemic colitis. Can dc home on antibiotics and bentyl with gi fu in 1 week. GI will sign off. Thank you (Tyrone Landaverde MD) Tania Torre Jan 03, 2018 15:08 Tyrone Landaverde MD Jan 03, 2018 17:34
[2018-01-03] MEDS: TAMSULOSIN HCL 0.4 MG CAP PO SCH (22:07)
[2018-01-04] VITALS (7 sets, daily range): BP systolic 91–125; BP diastolic 54–72; PULSE 62–121; RESP 18–20; TEMP 98–98.7; O2SAT 95–98
[2018-01-04] MEDS: NS + KCL 20 MEQ INJ 1,000 ML IV SCH ×3 (05:48→21:31)
[2018-01-04] MEDS: metroNIDAZOLE 500 MG INJ 100 ML IV SCH ×3 (05:50→17:24)
[2018-01-04] MEDS: INSULIN ASPART SUPPLEMENTAL SCALE SQ SCH ×4 (08:00→21:31)
[2018-01-04] MEDS: SODIUM CHLORIDE 0.9% FLUSH 10 ML FLUSH IV FLUSH SCH ×2 (09:00→21:31)
[2018-01-04 09:08] LABS: AUTOMATED NEUTROPHIL # 2.1 TH/MM3 (1.8-7.7); BASOPHIL % 0.3 % (0.0-2.0); EOSINOPHIL % 0.9 % (0.0-4.0); HEMATOCRIT 35.6 % (39.0-51.0); HEMOGLOBIN 12.1 GM/DL (13.0-17.0); LYMPH % 39.6 % (9.0-44.0); LYMPHOCYTE # 1.9 TH/MM3 (1.0-4.8); MEAN CELL VOLUME 92.9 FL (80.0-100.0); MEAN CORPUSCULAR HEMOGLOBIN 31.7 PG (27.0-34.0); MEAN CORPUSCULAR HGB CONC 34.1 % (32.0-36.0); MEAN PLATELET VOLUME 7.5 FL (7.0-11.0); MONO % 13.9 % (0.0-8.0); MONOCYTE # 0.6 TH/MM3 (0-0.9); NEUT % 45.3 % (16.0-70.0); PLATELET COUNT 210 TH/MM3 (150-450); RED BLOOD COUNT 3.83 MIL/MM3 (4.50-5.90); RED CELL DISTRIBUTION WIDTH 15.5 % (11.6-17.2); WHITE BLOOD COUNT 4.7 TH/MM3 (4.0-11.0)
[2018-01-04] MEDS: DICYCLOMINE HCL 10 MG CAP PO SCH ×3 (09:33→17:24)
[2018-01-04] MEDS: PANTOPRAZOLE SOD 40 MG DELAYED RELEASE TAB PO SCH ×2 (09:33→21:30)
[2018-01-04 09:45] LABS: BICARBONATE 23.3 MEQ/L (21.0-32.0); CALCIUM 8.3 MG/DL (8.5-10.1); CREATININE 0.76 MG/DL (0.60-1.30); MAGNESIUM 1.9 MG/DL (1.5-2.5)
[2018-01-04 10:34] LABS: BANDS 11 % (0-6); CORRECTED NUCLEATED RBC 1 /100 WBC (0-0); LYMPHOCYTES 26 % (9-44); METAMYELOCYTES 2 % (0-1); MONOCYTES 15 % (0-8); MYELOCYTES 1 % (0-0); NEUTROPHIL # MANUAL DIFF 2.7 TH/MM3 (1.8-7.7); NUCLEATED RED BLOOD CELL 1 (0-0); PLASMA CELLS 1 % (0-0); POLYS (SEG NEUTROPHILS) 44 % (16-70)
[2018-01-04] MEDS: CIPROFLOXACIN 400 MG PREMIX 200 ML IV SCH ×2 (11:57→21:30)
--- NOTE | 2018-01-04 12:32 | HHI.PR ---
cc: Darren Garzon MD Subjective Subjective Notes still with intermittent abdominal pain, no fevers Objective Vitals/I&O Vital Signs Date Time Temp Pulse Resp B/P (MAP) Pulse Ox O2 Delivery O2 Flow Rate FiO2 01/04/18 08:00 98.1 85 20 125/72 (89) 96 01/04/18 07:55 Room Air Labs Laboratory Tests Test 01/04/18 08:09 White Blood Count 4.7 Red Blood Count 3.83 Hemoglobin 12.1 Hematocrit 35.6 Mean Corpuscular Volume 92.9 Mean Corpuscular Hemoglobin 31.7 Mean Corpuscular Hemoglobin Concent 34.1 Red Cell Distribution Width 15.5 Platelet Count 210 Mean Platelet Volume 7.5 Neutrophils (%) (Auto) 45.3 Lymphocytes (%) (Auto) 39.6 Monocytes (%) (Auto) 13.9 Eosinophils (%) (Auto) 0.9 Basophils (%) (Auto) 0.3 Neutrophils # (Auto) 2.1 Lymphocytes # (Auto) 1.9 Monocytes # (Auto) 0.6 Eosinophils # (Auto) 0.0 Basophils # (Auto) 0.0 CBC Comment AUTO DIFF Differential Total Cells Counted 100 Neutrophils % (Manual) 44 Band Neutrophils % 11 Lymphocytes % 26 Monocytes % 15 Neutrophils # (Manual) 2.7 Metamyelocytes 2 Myelocytes 1 Nucleated Red Blood Cells 1 Differential Comment FINAL DIFF MANUAL Plasma Cells 1 Platelet Estimate NORMAL Platelet Morphology Comment NORMAL Red Cell Morphology Comment NORMAL Blood Urea Nitrogen 5 Creatinine 0.76 Random Glucose 145 Calcium Level 8.3 Magnesium Level 1.9 Sodium Level 138 Potassium Level 3.8 Chloride Level 107 Carbon Dioxide Level 23.3 Anion Gap 8 Estimat Glomerular Filtration Rate 125 Date/Time Source Procedure Growth Status 12/31/17 22:10 Stool Stool Cryptosporidium Exam - Final NEGATIVE - NO CRYPTOSPORIDIUM ANTIGEN... Complete 12/31/17 22:10 Stool Stool Giardia Antigen (AMARJIT) - Final NEGATIVE - NO GIARDIA ANTIGEN DETECTE... Complete Lungs: Clear Abdomen: Other (soft mild ttp, no rebound) A/P Assessment and Plan 62 year old male with abdominal pain; colitis -Continue Cipro/Flagyl -Advance diet as tolerated -S/P EGD----shows esophagitis -S/P colonoscopy--- diffuse colitis in descending colon and transverse colon -Will continue to follow abdominal exam -- -Will continue to discuss possible surgical intervention; Obtain Cardiology clearance - colorectal to eval for hemorrhoids and possible intervention Darren Garzon MD Jan 04, 2018 12:32
--- NOTE | 2018-01-04 18:10 | HHI.PR ---
Subjective Remarks Plan for surgery in 2 days. Patient has no new complaints today. He still complaining of GI bleed. Objective Vital Signs Date Time Temp Pulse Resp B/P (MAP) Pulse Ox O2 Delivery O2 Flow Rate FiO2 01/04/18 16:00 98.2 64 20 104/59 (74) 96 01/04/18 14:37 98 Room Air 01/04/18 12:00 98.0 65 20 117/62 (80) 98 01/04/18 08:00 98.1 85 20 125/72 (89) 96 01/04/18 08:00 83 01/04/18 07:55 Room Air 01/04/18 04:00 98.6 78 18 120/68 (85) 96 01/04/18 03:57 62 01/04/18 00:00 98.7 63 18 119/65 (83) 95 01/03/18 23:51 62 01/03/18 20:12 94 01/03/18 20:00 98.6 78 18 125/68 (87) 96 I/O 01/03/18 01/03/18 01/03/18 01/04/18 01/04/18 01/04/18 06:59 14:59 22:59 06:59 14:59 22:59 Intake Total 1887 ml 100 ml 1310 ml 110 ml Balance 1887 ml 100 ml 1310 ml 110 ml Intake Oral 710 ml IV Total 1177 ml 100 ml 1310 ml 110 ml # Voids 4 # Bowel Movements 2 Result Diagram: 01/04/18 0809 01/04/18 0809 Objective Remarks GENERAL: NAD, A&Ox3 HEAD: Normocephalic. NECK: Supple, trachea midline. No lymphadenopathy. EYES: No scleral icterus. No injection or drainage. CARDIOVASCULAR: Regular rate and rhythm without murmurs, gallops, or rubs. RESPIRATORY: Breath sounds equal bilaterally. No accessory muscle use. GASTROINTESTINAL: Abdomen soft, non-tender, nondistended. MUSCULOSKELETAL: No cyanosis, or edema. SKIN: Warm and dry. NEURO: No focal neurological deficitis. A/P Problem List: (1) GI bleed ICD Code: K92.2 - Gastrointestinal hemorrhage Status: Acute (2) Esophagitis ICD Code: K20.9 - Esophagitis, unspecified (3) Intractable abdominal pain ICD Code: R10.9 - Unspecified abdominal pain Status: Acute (4) BPH (benign prostatic hyperplasia) ICD Code: N40.0 - Benign prostatic hyperplasia without lower urinary tract symptoms Status: Acute (5) Colitis ICD Code: K52.9 - Noninfective gastroenteritis and colitis, unspecified Status: Acute (6) Bandemia ICD Code: D72.825 - Bandemia Status: Acute Assessment and Plan 62-year-old male admitted secondary to chronic recurrent colitis Chronic recurrent colitis Ischemic versus infectious colitis status versus autoimmune Continue liquid diet General surgery following GI following Plan for surgery in 2 days Medically clear for surgery as scheduled Rheumatoid arthritis Humira and methotrexate are on hold Diabetes mellitus type 2 Follow blood sugars Insulin sliding scale Diabetic diet Hyperlipidemia Continue present treatment Follow as an outpatient Hypertension Continue baseline treatment Follow blood pressures Adjust treatments as needed Gouty arthritis Osteoarthritis PTSD Follow clinically DVT prophylaxis No anticoagulation due to bleeding SCDs as needed Ori Pederson MD Jan 04, 2018 18:10
[2018-01-04] MEDS: TAMSULOSIN HCL 0.4 MG CAP PO SCH (21:30)
[2018-01-04] MEDS: MORPHINE SULFATE 4 MG/ML INJ IV PUSH PRN (21:31)
[2018-01-05] VITALS (8 sets, daily range): BP systolic 106–150; BP diastolic 55–68; PULSE 55–89; RESP 18–20; TEMP 97.7–98.6; O2SAT 95–99
[2018-01-05] MEDS: metroNIDAZOLE 500 MG INJ 100 ML IV SCH ×5 (00:13→23:34)
[2018-01-05] MEDS: MORPHINE SULFATE 4 MG/ML INJ IV PUSH PRN ×2 (04:09→22:00)
[2018-01-05] MEDS: NS + KCL 20 MEQ INJ 1,000 ML IV SCH ×2 (05:55→17:50)
[2018-01-05] MEDS: INSULIN ASPART SUPPLEMENTAL SCALE SQ SCH ×4 (08:00→21:00)
[2018-01-05] MEDS: PANTOPRAZOLE SOD 40 MG DELAYED RELEASE TAB PO SCH ×2 (09:16→20:51)
[2018-01-05] MEDS: DICYCLOMINE HCL 10 MG CAP PO SCH ×3 (09:16→17:51)
[2018-01-05] MEDS: SODIUM CHLORIDE 0.9% FLUSH 10 ML FLUSH IV FLUSH SCH ×2 (09:17→20:51)
[2018-01-05] MEDS: CIPROFLOXACIN 400 MG PREMIX 200 ML IV SCH ×2 (10:46→22:00)
--- NOTE | 2018-01-05 11:43 | HHI.PR ---
Subjective Remarks Plan for surgery in 2 days. Hemoglobin is stable. Patient has no new complaints today. He still complaining of GI bleed. Objective Vital Signs Date Time Temp Pulse Resp B/P (MAP) Pulse Ox O2 Delivery O2 Flow Rate FiO2 01/05/18 09:00 Room Air 01/05/18 08:00 98.2 55 20 150/68 (95) 99 01/05/18 04:00 70 01/05/18 04:00 98.6 89 20 106/55 (72) 97 01/05/18 00:00 64 01/05/18 00:00 97.8 70 20 109/59 (76) 96 01/04/18 20:00 Room Air 01/04/18 20:00 98.5 74 18 91/54 (66) 97 01/04/18 20:00 75 01/04/18 16:00 98.2 64 20 104/59 (74) 96 01/04/18 16:00 121 01/04/18 14:37 98 Room Air 01/04/18 12:00 100 01/04/18 12:00 98.0 65 20 117/62 (80) 98 I/O 01/04/18 01/04/18 01/04/18 01/05/18 01/05/18 01/05/18 07:00 15:00 23:00 07:00 15:00 23:00 Intake Total 1420 ml 1680 ml 1740 ml Balance 1420 ml 1680 ml 1740 ml Intake Oral 480 ml 640 ml IV Total 1420 ml 1200 ml 1100 ml # Voids 3 3 # Bowel Movements 2 Result Diagram: 01/04/18 0809 01/04/18 0809 Objective Remarks GENERAL: NAD, A&Ox3 HEAD: Normocephalic. NECK: Supple, trachea midline. No lymphadenopathy. EYES: No scleral icterus. No injection or drainage. CARDIOVASCULAR: Regular rate and rhythm without murmurs, gallops, or rubs. RESPIRATORY: Breath sounds equal bilaterally. No accessory muscle use. GASTROINTESTINAL: Abdomen soft, non-tender, nondistended. MUSCULOSKELETAL: No cyanosis, or edema. SKIN: Warm and dry. NEURO: No focal neurological deficitis. A/P Problem List: (1) GI bleed ICD Code: K92.2 - Gastrointestinal hemorrhage Status: Acute (2) Esophagitis ICD Code: K20.9 - Esophagitis, unspecified (3) Intractable abdominal pain ICD Code: R10.9 - Unspecified abdominal pain Status: Acute (4) BPH (benign prostatic hyperplasia) ICD Code: N40.0 - Benign prostatic hyperplasia without lower urinary tract symptoms Status: Acute (5) Colitis ICD Code: K52.9 - Noninfective gastroenteritis and colitis, unspecified Status: Acute (6) Bandemia ICD Code: D72.825 - Bandemia Status: Acute Assessment and Plan 62-year-old male admitted secondary to chronic recurrent colitis Patient complains of bleeding. Labs reviewed. Hemoglobin show stability. Continue to monitor labs. Labs ordered for further monitoring. Follow hemoglobin levels. Chronic recurrent colitis Ischemic versus infectious colitis status versus autoimmune Continue liquid diet General surgery following GI following Plan for surgery in 2 days Medically clear for surgery as scheduled Rheumatoid arthritis Humira and methotrexate are on hold Diabetes mellitus type 2 Follow blood sugars Insulin sliding scale Diabetic diet Hyperlipidemia Continue present treatment Follow as an outpatient Hypertension Continue baseline treatment Follow blood pressures Adjust treatments as needed Gouty arthritis Osteoarthritis PTSD Follow clinically DVT prophylaxis No anticoagulation due to bleeding SCDs as needed Ori Pederson MD Jan 05, 2018 11:43
--- NOTE | 2018-01-05 15:10 | HHI.PR ---
cc: Oralia Yanez MD Subjective Subjective Notes DAILY PROGRESS NOTE FOR SURGICAL ATTENDING, DR. ORALIA YANEZ Still having left and right-sided abdominal discomfort Complaints of bleeding hemorrhoids Objective Vitals/I&O Vital Signs Date Time Temp Pulse Resp B/P (MAP) Pulse Ox O2 Delivery O2 Flow Rate FiO2 01/05/18 12:00 98.0 66 18 116/59 (78) 97 01/05/18 09:00 Room Air Labs Date/Time Source Procedure Growth Status 12/31/17 22:10 Stool Stool Cryptosporidium Exam - Final NEGATIVE - NO CRYPTOSPORIDIUM ANTIGEN... Complete 12/31/17 22:10 Stool Stool Giardia Antigen (AMARJIT) - Final NEGATIVE - NO GIARDIA ANTIGEN DETECTE... Complete Radiology Last Impressions Abdomen/Pelvis CT 01/01/18 0000 Signed Impressions: Service Date/Time: Monday, January 01, 2018 11:42 - CONCLUSION: 1. The exam demonstrates colonic thickening beginning at the level of the mid transverse and extending down to the distal descending colon. There are inflammatory changes within the left paracolic gutter. Findings would be consistent with a colitis. No evidence of perforation identified. Ori Potts MD Cardiovascular: Regular Lungs: Clear Abdomen: Other (Mild soreness left and right lower quadrant with deep palpation ) Extremities: Perfused A/P Problem List: (1) GI bleed ICD Codes: K92.2 - Gastrointestinal hemorrhage Status: Acute Permanent Comment: 1. There was LA Class A esophagitis noted; biopsy was performed 2. There was erythematous gastritis in the gastric antrum; biopsy was performed 3. Duodenal inflammation was found in the duodenal bulb 4. Retroflexed views revealed no abnormalities Last Edited By: Oralia Yanez on Jan 05, 2018 15:20 (2) Colitis ICD Codes: K52.9 - Noninfective gastroenteritis and colitis, unspecified Status: Acute Permanent Comment: 1. Circumferential diffuse colitis was found in the descending colon and transverse colon; The mucosa was erythematous, friable and ulcerated; Consistent with ischemic. This is consistent with ischemic colitis.; biopsy was performed using cold forceps 2. Retroflexed views revealed internal hemorrhoids 3. Retroflexed views revealed small internal hemorrhoids 4. Revealed external hemorrhoids Last Edited By: Oralia Yanez on Jan 05, 2018 15:18 (3) Hemorrhoids, internal, with bleeding ICD Codes: K64.8 - Other hemorrhoids Status: Chronic (4) Intractable abdominal pain ICD Codes: R10.9 - Unspecified abdominal pain Status: Acute Permanent Comment: Last Edited By: Oralia Yanez on Jan 05, 2018 15:18 (5) BPH (benign prostatic hyperplasia) ICD Codes: N40.0 - Benign prostatic hyperplasia without lower urinary tract symptoms Status: Chronic (6) Coronary artery disease ICD Codes: I25.10 - Atherosclerotic heart disease of [place] coronary artery without angina pectoris Permanent Comment: Reason for Deletion: Air Last Edited By: Oralia Yanez on Jan 05, 2018 15:31 Assessment and Plan 62 year old male with abdominal pain; colitis -Continue Cipro/Flagyl -Advance diet as tolerated -S/P EGD----shows esophagitis -S/P colonoscopy--- diffuse colitis in descending colon and transverse colon -Will continue to follow abdominal exam -- -Will continue to discuss possible surgical intervention; Obtain Cardiology clearance - colorectal to eval for hemorrhoids and possible intervention I spoke with Dr. Roberto who will see him. He will evaluate his hemorrhoids, colitis and his lower GI bleed. Attending Statement NOTE FOR SURGICAL ATTENDING, DR. ORLAIA YANEZ I agree with above assessment and plan. The exam, history, and the medical decision-making described in the above note were completed with the assistance of the mid-level provider. I reviewed and agree with the findings presented. I attest that I had a [id number] encounter with the patient on the same day, and personally performed and documented my assessment and findings in the medical record. The following services were provided during this hospital visit: Chart data review, vital sign assessments/reviewing monitor data Review of consultations notes if present. Medication orders/review and/or management Ordering and/or reviewing lab tests Ordering and/or interpreting/reviewing x-rays and/or diagnostic studies Care of the patient and discussion of the patient with the care team Documentation time To help prompt me to consider important information that might be impacting today's encounter and assessment, Information from prior notes written by myself or my colleagues may have been "brought forward/copy and pasted" into today's note. Problem Qualifiers (1) GI bleed: Qualified Codes: K29.01 - Acute gastritis with bleeding Oralia Yanez MD Jan 05, 2018 15:10
[2018-01-05] MEDS: TAMSULOSIN HCL 0.4 MG CAP PO SCH (20:51)
[2018-01-06] VITALS (11 sets, daily range): BP systolic 100–110; BP diastolic 56–72; PULSE 65–103; RESP 16–18; TEMP 97.9–98.4; O2SAT 94–96
[2018-01-06] MEDS: NS + KCL 20 MEQ INJ 1,000 ML IV SCH (02:00)
[2018-01-06] MEDS: metroNIDAZOLE 500 MG INJ 100 ML IV SCH ×2 (05:13→12:23)
[2018-01-06] MEDS: INSULIN ASPART SUPPLEMENTAL SCALE SQ SCH ×4 (08:00→21:43)
[2018-01-06] MEDS: DICYCLOMINE HCL 10 MG CAP PO SCH ×3 (08:35→17:53)
[2018-01-06] MEDS: PANTOPRAZOLE SOD 40 MG DELAYED RELEASE TAB PO SCH ×2 (08:35→21:42)
[2018-01-06] MEDS: SODIUM CHLORIDE 0.9% FLUSH 10 ML FLUSH IV FLUSH SCH ×2 (08:35→21:00)
--- NOTE | 2018-01-06 12:08 | HHI.PR ---
Subjective Remarks Patient still reports intermittent bleeding. Tentative Surgery in 1 day. Patient is been off of his Humira and methotrexate. 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 We discussed steroids. Objective Vital Signs Date Time Temp Pulse Resp B/P (MAP) Pulse Ox O2 Delivery O2 Flow Rate FiO2 01/06/18 08:07 Room Air 01/06/18 08:00 98.4 78 16 108/56 (73) 94 01/06/18 07:55 103 01/06/18 04:00 98.1 67 18 106/58 (74) 94 01/06/18 04:00 Room Air 01/06/18 03:47 65 01/06/18 00:00 Room Air 01/06/18 00:00 98.3 69 18 109/57 (74) 94 01/05/18 23:38 61 01/05/18 20:00 98.2 76 18 121/66 (84) 96 01/05/18 20:00 Room Air 01/05/18 19:53 75 01/05/18 16:00 97.7 79 18 114/59 (77) 95 I/O 01/05/18 01/05/18 01/05/18 01/06/18 01/06/18 01/06/18 07:00 15:00 23:00 07:00 15:00 23:00 Intake Total 1740 ml 300 ml 680 ml 1849 ml Balance 1740 ml 300 ml 680 ml 1849 ml Intake Oral 640 ml 480 ml 870 ml IV Total 1100 ml 300 ml 200 ml 979 ml # Voids 3 4 5 # Bowel Movements 2 1 Result Diagram: 01/04/18 0809 01/04/18 0809 Objective Remarks GENERAL: NAD, A&Ox3 HEAD: Normocephalic. NECK: Supple, trachea midline. No lymphadenopathy. EYES: No scleral icterus. No injection or drainage. CARDIOVASCULAR: Regular rate and rhythm without murmurs, gallops, or rubs. RESPIRATORY: Breath sounds equal bilaterally. No accessory muscle use. GASTROINTESTINAL: Abdomen soft, non-tender, nondistended. MUSCULOSKELETAL: No cyanosis, or edema. SKIN: Warm and dry. NEURO: No focal neurological deficitis. A/P Problem List: (1) GI bleed ICD Code: K92.2 - Gastrointestinal hemorrhage Status: Acute Permanent Comment: 1. There was LA Class A esophagitis noted; biopsy was performed 2. There was erythematous gastritis in the gastric antrum; biopsy was performed 3. Duodenal inflammation was found in the duodenal bulb 4. Retroflexed views revealed no abnormalities Last Edited By: Juvencio Johnson on Jan 05, 2018 15:20 (2) Esophagitis ICD Code: K20.9 - Esophagitis, unspecified (3) Intractable abdominal pain ICD Code: R10.9 - Unspecified abdominal pain Status: Acute Permanent Comment: Last Edited By: Juvencio Johnson on Jan 05, 2018 15:18 (4) BPH (benign prostatic hyperplasia) ICD Code: N40.0 - Benign prostatic hyperplasia without lower urinary tract symptoms Status: Chronic (5) Colitis ICD Code: K52.9 - Noninfective gastroenteritis and colitis, unspecified Status: Acute Permanent Comment: 1. Circumferential diffuse colitis was found in the descending colon and transverse colon; The mucosa was erythematous, friable and ulcerated; Consistent with ischemic. This is consistent with ischemic colitis.; biopsy was performed using cold forceps 2. Retroflexed views revealed internal hemorrhoids 3. Retroflexed views revealed small internal hemorrhoids 4. Revealed external hemorrhoids Last Edited By: Juvencio Johnson on Jan 05, 2018 15:18 (6) Bandemia ICD Code: D72.825 - Bandemia Status: Acute Assessment and Plan 62-year-old male admitted secondary to chronic recurrent colitis Patient complains of bleeding. Continue to monitor hemoglobin. Labs ordered for further monitoring. Patient has been ambulating well. Pending surgery tomorrow. Autoimmune exacerbation Start steroids, medium dosing. Monitor blood sugars and adjust insulin as needed Follow exacerbation clinically Chronic recurrent colitis Ischemic versus infectious colitis status versus autoimmune Continue liquid diet General surgery following GI following Plan for surgery in 2 days Medically clear for surgery as scheduled Rheumatoid arthritis Humira and methotrexate are on hold Diabetes mellitus type 2 Follow blood sugars Insulin sliding scale Diabetic diet Hyperlipidemia Continue present treatment Follow as an outpatient Hypertension Continue baseline treatment Follow blood pressures Adjust treatments as needed Gouty arthritis Osteoarthritis PTSD Follow clinically DVT prophylaxis No anticoagulation due to bleeding SCDs as needed Problem Qualifiers (1) GI bleed: Qualified Codes: K29.01 - Acute gastritis with bleeding Ori Pederson MD Jan 06, 2018 12:08
[2018-01-06] MEDS ORDERED: methylPREDNISolone SOD SUCC 40 MG/1 ML VIAL IV PUSH ONE (12:15)
[2018-01-06] MEDS: CIPROFLOXACIN 400 MG PREMIX 200 ML IV SCH (12:22)
[2018-01-06] MEDS: HYDROCORTISONE SOD SUCCINATE 100 MG VIAL IV PUSH SCH ×2 (14:10→21:42)
--- NOTE | 2018-01-06 14:18 | HHI.PR ---
cc: Darren Garzon MD Subjective Subjective Notes no acute issues, still with persistent abdominal pain and occasional blood in stool Objective Vitals/I&O Vital Signs Date Time Temp Pulse Resp B/P (MAP) Pulse Ox O2 Delivery O2 Flow Rate FiO2 01/06/18 12:00 98.1 81 18 102/66 (78) 96 01/06/18 08:07 Room Air Labs Date/Time Source Procedure Growth Status 12/31/17 22:10 Stool Stool Cryptosporidium Exam - Final NEGATIVE - NO CRYPTOSPORIDIUM ANTIGEN... Complete 12/31/17 22:10 Stool Stool Giardia Antigen (AMARJIT) - Final NEGATIVE - NO GIARDIA ANTIGEN DETECTE... Complete Radiology Last Impressions Abdomen/Pelvis CT 01/01/18 0000 Signed Impressions: Service Date/Time: Monday, January 01, 2018 11:42 - CONCLUSION: 1. The exam demonstrates colonic thickening beginning at the level of the mid transverse and extending down to the distal descending colon. There are inflammatory changes within the left paracolic gutter. Findings would be consistent with a colitis. No evidence of perforation identified. Ori Potts MD Lungs: Clear Abdomen: Other (soft mild ttp, no rebound) A/P Problem List: (1) GI bleed ICD Codes: K92.2 - Gastrointestinal hemorrhage Status: Acute Permanent Comment: 1. There was LA Class A esophagitis noted; biopsy was performed 2. There was erythematous gastritis in the gastric antrum; biopsy was performed 3. Duodenal inflammation was found in the duodenal bulb 4. Retroflexed views revealed no abnormalities Last Edited By: Juvencio Johnson on Jan 05, 2018 15:20 (2) Colitis ICD Codes: K52.9 - Noninfective gastroenteritis and colitis, unspecified Status: Acute Permanent Comment: 1. Circumferential diffuse colitis was found in the descending colon and transverse colon; The mucosa was erythematous, friable and ulcerated; Consistent with ischemic. This is consistent with ischemic colitis.; biopsy was performed using cold forceps 2. Retroflexed views revealed internal hemorrhoids 3. Retroflexed views revealed small internal hemorrhoids 4. Revealed external hemorrhoids Last Edited By: Juvencio Johnson on Jan 05, 2018 15:18 (3) Hemorrhoids, internal, with bleeding ICD Codes: K64.8 - Other hemorrhoids Status: Chronic (4) Intractable abdominal pain ICD Codes: R10.9 - Unspecified abdominal pain Status: Acute Permanent Comment: Last Edited By: Juvencio Johnson on Jan 05, 2018 15:18 (5) BPH (benign prostatic hyperplasia) ICD Codes: N40.0 - Benign prostatic hyperplasia without lower urinary tract symptoms Status: Chronic Assessment and Plan 62 year old male with abdominal pain; colitis -Continue Cipro/Flagyl -Advance diet as tolerated -S/P EGD----shows esophagitis -S/P colonoscopy--- diffuse colitis in descending colon and transverse colon -Will continue to follow abdominal exam -- -Will continue to discuss possible surgical intervention; Obtain Cardiology clearance - colorectal to eval for hemorrhoids and possible intervention Problem Qualifiers (1) GI bleed: Qualified Codes: K29.01 - Acute gastritis with bleeding Darren Garzon MD Jan 06, 2018 14:18
[2018-01-06] MEDS: MORPHINE SULFATE 4 MG/ML INJ IV PUSH PRN ×2 (17:53→21:42)
[2018-01-06] MEDS ORDERED: methylPREDNISolone SOD SUCC 40 MG/1 ML VIAL IV PUSH SCH (21:00)
[2018-01-06] MEDS: TAMSULOSIN HCL 0.4 MG CAP PO SCH (21:42)
[2018-01-07] VITALS (9 sets, daily range): BP systolic 103–118; BP diastolic 56–71; PULSE 71–98; RESP 16–18; TEMP 97.7–98.2; O2SAT 96–98
[2018-01-07] MEDS: MORPHINE SULFATE 4 MG/ML INJ IV PUSH PRN ×2 (03:14→08:35)
[2018-01-07] MEDS: HYDROCORTISONE SOD SUCCINATE 100 MG VIAL IV PUSH SCH ×3 (05:34→20:27)
[2018-01-07 05:39] LABS: INTERNATIONAL NORMALIZED RATIO 1.3 RATIO; PROTHROMBIN TIME - PATIENT 12.7 SEC (9.8-11.6)
[2018-01-07 05:44] LABS: AUTOMATED NEUTROPHIL # 8.7 TH/MM3 (1.8-7.7); BASOPHIL % 0.3 % (0.0-2.0); HEMATOCRIT 39.7 % (39.0-51.0); HEMOGLOBIN 13.3 GM/DL (13.0-17.0); LYMPH % 10.8 % (9.0-44.0); LYMPHOCYTE # 1.1 TH/MM3 (1.0-4.8); MEAN CELL VOLUME 93.2 FL (80.0-100.0); MEAN CORPUSCULAR HEMOGLOBIN 31.3 PG (27.0-34.0); MEAN CORPUSCULAR HGB CONC 33.6 % (32.0-36.0); MEAN PLATELET VOLUME 7.2 FL (7.0-11.0); MONO % 2.6 % (0.0-8.0); MONOCYTE # 0.3 TH/MM3 (0-0.9); NEUT % 86.3 % (16.0-70.0); PLATELET COUNT 297 TH/MM3 (150-450); RED BLOOD COUNT 4.26 MIL/MM3 (4.50-5.90); RED CELL DISTRIBUTION WIDTH 15.9 % (11.6-17.2)
[2018-01-07 06:07] LABS: ALBUMIN 2.8 GM/DL (3.4-5.0); ALT (GPT) 41 U/L (12-78); AST (GOT) 18 U/L (15-37); BICARBONATE 25.5 MEQ/L (21.0-32.0); BLOOD UREA NITROGEN 7 MG/DL (7-18); CALCIUM 8.8 MG/DL (8.5-10.1); CHLORIDE 104 MEQ/L (98-107); GLOMERULAR FILTRATION RATE 118 ML/MIN (>89); GLUCOSE,RANDOM 225 MG/DL (74-106); SODIUM (NA) 138 MEQ/L (136-145)
[2018-01-07 06:09] LABS: ALKALINE PHOSPHATASE 43 U/L (45-117); TOTAL BILIRUBIN ADULT 0.3 MG/DL (0.2-1.0); TOTAL PROTEIN 6.6 GM/DL (6.4-8.2)
[2018-01-07] MEDS: INSULIN ASPART SUPPLEMENTAL SCALE SQ SCH ×5 (08:00→20:27)
[2018-01-07] MEDS: MAGNESIUM CITRATE SOLN 300 ML BTL PO SCH ×2 (08:14→11:32)
[2018-01-07] MEDS: PANTOPRAZOLE SOD 40 MG DELAYED RELEASE TAB PO SCH ×2 (08:16→20:17)
[2018-01-07] MEDS: SODIUM CHLORIDE 0.9% FLUSH 10 ML FLUSH IV FLUSH SCH ×2 (08:16→20:17)
[2018-01-07] MEDS: DICYCLOMINE HCL 10 MG CAP PO SCH ×3 (08:16→17:31)
[2018-01-07] MEDS: NS + KCL 20 MEQ INJ 1,000 ML IV SCH ×2 (09:40→20:18)
--- NOTE | 2018-01-07 11:05 | HHI.PR ---
Subjective Remarks Colonoscopy with biopsy today. Patient is apprehensive about surgery now, today. Tachycardic arrhythmia is present this morning, patient reports that this is what he has had intermittently in the past. Objective Vital Signs Date Time Temp Pulse Resp B/P (MAP) Pulse Ox O2 Delivery O2 Flow Rate FiO2 01/07/18 08:25 Room Air 01/07/18 08:18 90 01/07/18 08:02 98.0 83 17 115/56 (75) 96 01/07/18 04:00 97.7 88 18 118/60 (79) 97 01/07/18 03:43 71 01/07/18 00:00 97.8 81 18 113/69 (84) 98 01/07/18 00:00 Room Air 01/06/18 23:42 70 01/06/18 20:00 Room Air 01/06/18 20:00 97.9 87 18 110/72 (85) 96 01/06/18 19:44 69 01/06/18 16:00 98.3 78 18 100/61 (74) 96 01/06/18 15:52 71 01/06/18 12:00 98.1 81 18 102/66 (78) 96 I/O 01/06/18 01/06/18 01/06/18 01/07/18 01/07/18 01/07/18 07:00 15:00 23:00 07:00 15:00 23:00 Intake Total 1849 ml 480 ml 1597 ml Balance 1849 ml 480 ml 1597 ml Intake Oral 870 ml 480 ml 870 ml IV Total 979 ml 727 ml # Voids 5 4 8 # Bowel Movements 1 2 2 Result Diagram: 01/07/18 0500 01/07/18 0500 Objective Remarks GENERAL: NAD, A&Ox3 HEAD: Normocephalic. NECK: Supple, trachea midline. No lymphadenopathy. EYES: No scleral icterus. No injection or drainage. CARDIOVASCULAR: Regular rate and rhythm without murmurs, gallops, or rubs. RESPIRATORY: Breath sounds equal bilaterally. No accessory muscle use. GASTROINTESTINAL: Abdomen soft, non-tender, nondistended. MUSCULOSKELETAL: No cyanosis, or edema. SKIN: Warm and dry. NEURO: No focal neurological deficitis. A/P Problem List: (1) GI bleed ICD Code: K92.2 - Gastrointestinal hemorrhage Status: Acute Permanent Comment: 1. There was LA Class A esophagitis noted; biopsy was performed 2. There was erythematous gastritis in the gastric antrum; biopsy was performed 3. Duodenal inflammation was found in the duodenal bulb 4. Retroflexed views revealed no abnormalities Last Edited By: Juvencio Johnson on Jan 05, 2018 15:20 (2) Esophagitis ICD Code: K20.9 - Esophagitis, unspecified (3) Intractable abdominal pain ICD Code: R10.9 - Unspecified abdominal pain Status: Acute Permanent Comment: Last Edited By: Juvencio Johnson on Jan 05, 2018 15:18 (4) BPH (benign prostatic hyperplasia) ICD Code: N40.0 - Benign prostatic hyperplasia without lower urinary tract symptoms Status: Chronic (5) Colitis ICD Code: K52.9 - Noninfective gastroenteritis and colitis, unspecified Status: Acute Permanent Comment: 1. Circumferential diffuse colitis was found in the descending colon and transverse colon; The mucosa was erythematous, friable and ulcerated; Consistent with ischemic. This is consistent with ischemic colitis.; biopsy was performed using cold forceps 2. Retroflexed views revealed internal hemorrhoids 3. Retroflexed views revealed small internal hemorrhoids 4. Revealed external hemorrhoids Last Edited By: Juvencio Johnson on Jan 05, 2018 15:18 (6) Bandemia ICD Code: D72.825 - Bandemia Status: Acute Assessment and Plan 62-year-old male admitted secondary to chronic recurrent colitis Follow on telemetry. Cardiology following. Bowel prep for colonoscopy today. Patient complains of bleeding. Continue to monitor hemoglobin. Labs ordered for further monitoring. Patient has been ambulating well. Pending surgery tomorrow, if patient is willing. Autoimmune exacerbation Start steroids, medium dosing. Monitor blood sugars and adjust insulin as needed Follow exacerbation clinically Chronic recurrent colitis Ischemic versus infectious colitis status versus autoimmune Continue liquid diet General surgery following GI following Plan for surgery in 2 days Medically clear for surgery as scheduled Rheumatoid arthritis Humira and methotrexate are on hold Diabetes mellitus type 2 Follow blood sugars Insulin sliding scale Diabetic diet Hyperlipidemia Continue present treatment Follow as an outpatient Hypertension Continue baseline treatment Follow blood pressures Adjust treatments as needed Gouty arthritis Osteoarthritis PTSD Follow clinically DVT prophylaxis No anticoagulation due to bleeding SCDs as needed Problem Qualifiers (1) GI bleed: Qualified Codes: K29.01 - Acute gastritis with bleeding Ori Pederson MD Jan 07, 2018 11:05
[2018-01-07] MEDS ORDERED: PROPOFOL 200 MG/20 ML AMP IV ONE (12:00)
[2018-01-07] MEDS ORDERED: INSULIN DETEMIR 100 UNITS/ML VIAL SQ SCH (14:00)
--- NOTE | 2018-01-07 17:05 | HHI.PR ---
cc: Darren Garzon MD Subjective Subjective Notes Sitting on the side of the bed Feeling much better since colonoscopy Objective Vitals/I&O Vital Signs Date Time Temp Pulse Resp B/P (MAP) Pulse Ox O2 Delivery O2 Flow Rate FiO2 01/07/18 16:20 97.2 75 16 116/78 (91) 94 01/07/18 08:25 Room Air Labs Laboratory Tests Test 01/07/18 05:00 White Blood Count 10.0 Red Blood Count 4.26 Hemoglobin 13.3 Hematocrit 39.7 Mean Corpuscular Volume 93.2 Mean Corpuscular Hemoglobin 31.3 Mean Corpuscular Hemoglobin Concent 33.6 Red Cell Distribution Width 15.9 Platelet Count 297 Mean Platelet Volume 7.2 Neutrophils (%) (Auto) 86.3 Lymphocytes (%) (Auto) 10.8 Monocytes (%) (Auto) 2.6 Eosinophils (%) (Auto) 0.0 Basophils (%) (Auto) 0.3 Neutrophils # (Auto) 8.7 Lymphocytes # (Auto) 1.1 Monocytes # (Auto) 0.3 Eosinophils # (Auto) 0.0 Basophils # (Auto) 0.0 CBC Comment DIFF FINAL Differential Comment Prothrombin Time 12.7 Prothromb Time International Ratio 1.3 Activated Partial Thromboplast Time 23.3 Blood Urea Nitrogen 7 Creatinine 0.80 Random Glucose 225 Total Protein 6.6 Albumin 2.8 Calcium Level 8.8 Alkaline Phosphatase 43 Aspartate Amino Transf (AST/SGOT) 18 Alanine Aminotransferase (ALT/SGPT) 41 Total Bilirubin 0.3 Sodium Level 138 Potassium Level 4.0 Chloride Level 104 Carbon Dioxide Level 25.5 Anion Gap 9 Estimat Glomerular Filtration Rate 118 Date/Time Source Procedure Growth Status 12/31/17 22:10 Stool Stool Cryptosporidium Exam - Final NEGATIVE - NO CRYPTOSPORIDIUM ANTIGEN... Complete 12/31/17 22:10 Stool Stool Giardia Antigen (AMARJIT) - Final NEGATIVE - NO GIARDIA ANTIGEN DETECTE... Complete Radiology Last Impressions Abdomen/Pelvis CT 01/01/18 0000 Signed Impressions: Service Date/Time: Monday, January 01, 2018 11:42 - CONCLUSION: 1. The exam demonstrates colonic thickening beginning at the level of the mid transverse and extending down to the distal descending colon. There are inflammatory changes within the left paracolic gutter. Findings would be consistent with a colitis. No evidence of perforation identified. Ori Potts MD Cardiovascular: Regular Lungs: Clear Abdomen: Non-distended, Non-tender Extremities: No edema A/P Problem List: (1) GI bleed ICD Codes: K92.2 - Gastrointestinal hemorrhage Status: Acute Permanent Comment: 1. There was LA Class A esophagitis noted; biopsy was performed 2. There was erythematous gastritis in the gastric antrum; biopsy was performed 3. Duodenal inflammation was found in the duodenal bulb 4. Retroflexed views revealed no abnormalities Last Edited By: Juvencio Johnson on Jan 05, 2018 15:20 (2) Colitis ICD Codes: K52.9 - Noninfective gastroenteritis and colitis, unspecified Status: Acute Permanent Comment: 1. Circumferential diffuse colitis was found in the descending colon and transverse colon; The mucosa was erythematous, friable and ulcerated; Consistent with ischemic. This is consistent with ischemic colitis.; biopsy was performed using cold forceps 2. Retroflexed views revealed internal hemorrhoids 3. Retroflexed views revealed small internal hemorrhoids 4. Revealed external hemorrhoids Last Edited By: Juvencio Johnson on Jan 05, 2018 15:18 (3) Hemorrhoids, internal, with bleeding ICD Codes: K64.8 - Other hemorrhoids Status: Chronic (4) Intractable abdominal pain ICD Codes: R10.9 - Unspecified abdominal pain Status: Acute Permanent Comment: Last Edited By: Juvencio Johnson on Jan 05, 2018 15:18 (5) BPH (benign prostatic hyperplasia) ICD Codes: N40.0 - Benign prostatic hyperplasia without lower urinary tract symptoms Status: Chronic Assessment and Plan 62 year old male with abdominal pain; colitis -s/p colonoscopy with Dr. Roberto---colitis has improved since last colonoscopy -Diet as tolerated -On IV steroids -Continue Cipro/Flagyl -Will continue nonoperative management at this time Attending Statement patient seen at bedside eval with colorectal with scope shows improvement will continue to follow with abdominal exams Attestation The exam, history, and the medical decision-making described in the above note were completed with the assistance of the mid-level provider. I reviewed and agree with the findings presented. I attest that I had a [id number] encounter with the patient on the same day, and personally performed and documented my assessment and findings in the medical record. Problem Qualifiers (1) GI bleed: Qualified Codes: K29.01 - Acute gastritis with bleeding Patricia Macrh/First Mickie LUNA Jan 07, 2018 17:05 Darren Garzon MD Jan 17, 2018 18:34
[2018-01-07] MEDS: TAMSULOSIN HCL 0.4 MG CAP PO SCH (20:17)
[2018-01-08] VITALS (7 sets, daily range): BP systolic 96–121; BP diastolic 55–61; PULSE 56–77; RESP 16–20; TEMP 97.6–98.5; O2SAT 96–100
[2018-01-08] MEDS: MORPHINE SULFATE 4 MG/ML INJ IV PUSH PRN ×3 (00:04→09:35)
[2018-01-08] MEDS: HYDROCORTISONE SOD SUCCINATE 100 MG VIAL IV PUSH SCH (05:57)
[2018-01-08 07:23] LABS: ALBUMIN 2.4 GM/DL (3.4-5.0); ALT (GPT) 34 U/L (12-78); BICARBONATE 21.8 MEQ/L (21.0-32.0); BLOOD UREA NITROGEN 12 MG/DL (7-18); CALCIUM 8.2 MG/DL (8.5-10.1); CHLORIDE 107 MEQ/L (98-107); CREATININE 0.79 MG/DL (0.60-1.30); GLOMERULAR FILTRATION RATE 120 ML/MIN (>89); GLUCOSE,RANDOM 158 MG/DL (74-106); SODIUM (NA) 135 MEQ/L (136-145)
[2018-01-08 07:24] LABS: AST (GOT) 36 U/L (15-37)
[2018-01-08 07:26] LABS: ALKALINE PHOSPHATASE 41 U/L (45-117); TOTAL BILIRUBIN ADULT 0.6 MG/DL (0.2-1.0); TOTAL PROTEIN 6.4 GM/DL (6.4-8.2)
[2018-01-08] MEDS: INSULIN ASPART SUPPLEMENTAL SCALE SQ SCH (08:00)
[2018-01-08] MEDS: DICYCLOMINE HCL 10 MG CAP PO SCH (09:35)
[2018-01-08] MEDS: SODIUM CHLORIDE 0.9% FLUSH 10 ML FLUSH IV FLUSH SCH (09:35)
[2018-01-08] MEDS: PANTOPRAZOLE SOD 40 MG DELAYED RELEASE TAB PO SCH (09:35)
[2018-01-08] MEDS ORDERED: DICY10 PO (10:37)
[2018-01-08] MEDS ORDERED: MORP1TAB24 PO (10:37)
[2018-01-08] MEDS ORDERED: PRED10 PO (10:37)
[2018-01-08] MEDS ORDERED: PRED20 PO (10:37)
[2018-01-08] MEDS ORDERED: FLOR250C PO (10:37)
[2018-01-08] MEDS ORDERED: MSIR15 PO (10:50)
--- NOTE | 2018-01-08 11:12 | HHI.DS ---
Discharge Summary Admission Date Dec 31, 2017 at 11:25 Discharge Date: Jan 08, 2018 Admitting Diagnosis Colitis, intractable abdominal pain, bandemia (1) Colitis ICD Code: K52.9 - Noninfective gastroenteritis and colitis, unspecified Diagnosis: Principal Status: Acute Procedures EGD and Cscope Brief History - From Admission History from patient, ER physician communication, and review of medical records. Patient is known to me from his prior hospitalization in January 2017. He reported that this time as well, he had similar symptoms. He reports starting , about 4 days ago, he started having abdominal pain with bright red blood per rectum. The pain and the symptoms were getting worse over the weekend and was not improving to the point that he was mostly in pain and had to pretty much crawling around his apartment because of these episodes. He had his home care nurse visiting him this morning and when she found him this way, , weight, he is to call 911. Patient reports of nausea. But did not vomit. Denies fever. Patient is on immunosuppressants at home for severe rheumatoid arthritis. He took his last dose of methotrexate on and Humira on Sunday. CBC/BMP: 01/07/18 0500 01/08/18 0630 Significant Findings Laboratory Tests Test 01/06/18 15:10 01/07/18 05:00 01/08/18 06:30 Erythrocyte Sedimentation Rate 48 mm/hr (0-20) Red Blood Count 4.26 MIL/MM3 (4.50-5.90) Neutrophils (%) (Auto) 86.3 % (16.0-70.0) Neutrophils # (Auto) 8.7 TH/MM3 (1.8-7.7) Prothrombin Time 12.7 SEC (9.8-11.6) Activated Partial Thromboplast Time 23.3 SEC (24.3-30.1) Random Glucose 225 MG/DL (74-106) 158 MG/DL (74-106) Albumin 2.8 GM/DL (3.4-5.0) 2.4 GM/DL (3.4-5.0) Alkaline Phosphatase 43 U/L (45-117) 41 U/L (45-117) Calcium Level 8.2 MG/DL (8.5-10.1) Sodium Level 135 MEQ/L (136-145) PE at Discharge GENERAL: This is a well-nourished, well-developed patient, in no apparent distress. SKIN: No rashes, ecchymoses or lesions. Cool and dry. CARDIOVASCULAR: Regular rate and rhythm without murmurs, gallops, or rubs. RESPIRATORY: Clear to auscultation. Breath sounds equal bilaterally. No wheezes , rales, or rhonchi. GASTROINTESTINAL: Abdomen soft, tender right and lower quadrants, nondistended. No guarding. MUSCULOSKELETAL: Extremities without clubbing, cyanosis, or edema No calf tenderness. NEUROLOGICAL: Awake and alert. Motor and sensory grossly within normal limits. Normal speech. Hospital Course Mr. Taylor is a 62 year old male. He has a history of NOS Autoimmunity which includes arthropathy, intermittent tachycardia, fatigue, and recurrent colitis. He was here due to recurrent and persistent GI Bleeding. Colonoscopy was performed and originally surgical intervention was planned as he did not improve. However, a second colonoscopy yesterday shows resolution of the bleeding. Patient has been feeling better with steroids and is at this point medically stable for discharge. Baseline prednisone at 10mg daily with pulse prednisone for flare ups is a treatment at discharge. Patient does not wish to continue methotrexate or Humira, he feels he had no benefit from these treatments. Discharge home today. Pt Condition on Discharge: Stable Discharge Disposition: Discharge Home Discharge Time: <= 30 minutes Discharge Instructions DIET: Follow Instructions for: As Tolerated, No Restrictions Activities you can perform: Regular-No Restrictions Follow up Referrals: Colorectal Surgery - 2 Weeks PCP Follow-up - 2 Weeks Surgical - 2 Weeks New Medications: Morphine IR (Morphine IR) 15 Mg Tab 15 MG PO Q6HR PRN for PAIN, #60 TAB 0 Refills Prednisone (Prednisone) 10 Mg Tab 10 MG PO DAILY for Inflammation, #30 TAB 0 Refills Prednisone (Prednisone) 20 Mg Tab 40 MG PO BID for Inflammation, #6 TAB 0 Refills Take 40 mg (2 tablets) daily for 5 days Saccharomyces Boulardii (Florastor) 250 Mg Cap 250 MG PO BID for Nutritional Supplement, #30 CAP 0 Refills Dicyclomine (Bentyl) 10 Mg Cap 10 MG PO TID PRN for SPASM, #60 CAP For GI Spasms Continued Medications: Insulin Aspart Inj (Novolog Inj) 1,000 Unit/10 Ml Vial 0 SQ DIRECTED for Blood Sugar Management, #10 ML 0 Refills Sliding Scale as directed. Insulin Human Regular Inj (Novolin R Inj) 1,000 Unit/10 Ml Vial 0 SQ DIRECTED for Blood Sugar Management, #10 ML 0 Refills Sliding Scale As Directed. Pantoprazole (Protonix) 40 Mg Tab 40 MG PO DAILY for Reflux, #30 TAB 0 Refills Tamsulosin (Flomax) 0.4 Mg Cap 0.4 MG PO HS for Manage Prostate Problems, #30 CAP 0 Refills Discontinued Medications: Adalimumab 2-Pack Inj (Humira 2-Pack Inj) 40 Mg/0.8 Ml Syr 40 MG SQ Q14D, #1 KIT 0 Refills Methotrexate (Methotrexate) 2.5 Mg Tab 9 MG PO Q7D, TAB 0 Refills Ori Pederson MD Jan 08, 2018 11:12
--- NOTE | 2018-01-08 12:51 | HHI.PR ---
cc: Darren Garzon MD Subjective Subjective Notes Ready to go home today No complaints Objective Vitals/I&O Vital Signs Date Time Temp Pulse Resp B/P (MAP) Pulse Ox O2 Delivery O2 Flow Rate FiO2 01/08/18 10:42 Room Air 01/08/18 08:07 97.8 61 18 121/61 (81) 96 Labs Laboratory Tests Test 01/08/18 06:30 Blood Urea Nitrogen 12 Creatinine 0.79 Random Glucose 158 Total Protein 6.4 Albumin 2.4 Calcium Level 8.2 Alkaline Phosphatase 41 Aspartate Amino Transf (AST/SGOT) 36 Alanine Aminotransferase (ALT/SGPT) 34 Total Bilirubin 0.6 Sodium Level 135 Potassium Level 4.7 Chloride Level 107 Carbon Dioxide Level 21.8 Anion Gap 6 Estimat Glomerular Filtration Rate 120 Date/Time Source Procedure Growth Status 12/31/17 22:10 Stool Stool Cryptosporidium Exam - Final NEGATIVE - NO CRYPTOSPORIDIUM ANTIGEN... Complete 12/31/17 22:10 Stool Stool Giardia Antigen (AMARJIT) - Final NEGATIVE - NO GIARDIA ANTIGEN DETECTE... Complete Radiology Last Impressions Abdomen/Pelvis CT 01/01/18 0000 Signed Impressions: Service Date/Time: Monday, January 01, 2018 11:42 - CONCLUSION: 1. The exam demonstrates colonic thickening beginning at the level of the mid transverse and extending down to the distal descending colon. There are inflammatory changes within the left paracolic gutter. Findings would be consistent with a colitis. No evidence of perforation identified. Ori Potts MD Cardiovascular: Regular Lungs: Clear Abdomen: Non-distended, Non-tender Extremities: No edema A/P Problem List: (1) GI bleed ICD Codes: K92.2 - Gastrointestinal hemorrhage Status: Acute Permanent Comment: 1. There was LA Class A esophagitis noted; biopsy was performed 2. There was erythematous gastritis in the gastric antrum; biopsy was performed 3. Duodenal inflammation was found in the duodenal bulb 4. Retroflexed views revealed no abnormalities Last Edited By: Juvencio Johnson on Jan 05, 2018 15:20 (2) Colitis ICD Codes: K52.9 - Noninfective gastroenteritis and colitis, unspecified Status: Acute Permanent Comment: 1. Circumferential diffuse colitis was found in the descending colon and transverse colon; The mucosa was erythematous, friable and ulcerated; Consistent with ischemic. This is consistent with ischemic colitis.; biopsy was performed using cold forceps 2. Retroflexed views revealed internal hemorrhoids 3. Retroflexed views revealed small internal hemorrhoids 4. Revealed external hemorrhoids Last Edited By: Juvencio Johnson on Jan 05, 2018 15:18 (3) Hemorrhoids, internal, with bleeding ICD Codes: K64.8 - Other hemorrhoids Status: Chronic (4) Intractable abdominal pain ICD Codes: R10.9 - Unspecified abdominal pain Status: Acute Permanent Comment: Last Edited By: Juvencio Johnson on Jan 05, 2018 15:18 (5) BPH (benign prostatic hyperplasia) ICD Codes: N40.0 - Benign prostatic hyperplasia without lower urinary tract symptoms Status: Chronic Assessment and Plan 62 year old male with abdominal pain; colitis -s/p colonoscopy with Dr. Roberto---colitis has improved since last colonoscopy -Tolerating regular diet -Steroids -Will continue nonoperative management at this time -GS clear for DC Attending Statement as above patient seen at bedside pain better, tolerating a diet ok for d/c today Attestation The exam, history, and the medical decision-making described in the above note were completed with the assistance of the mid-level provider. I reviewed and agree with the findings presented. I attest that I had a [id number] encounter with the patient on the same day, and personally performed and documented my assessment and findings in the medical record. Problem Qualifiers (1) GI bleed: Qualified Codes: K29.01 - Acute gastritis with bleeding Patricia MarchP/[employer] Jan 08, 2018 12:51 Darren Garzon MD Jan 17, 2018 22:02
--- NOTE | 2018-01-18 21:07 | MR ---
cc: Murtaza Roberto MD DATE: 01/07/2018 PREOPERATIVE DIAGNOSES: Persistent colitis, abdominal pain. PROCEDURE: Colonoscopy to cecum. POSTOPERATIVE DIAGNOSES: 1. Mild segmental colitis. 2. Normal cecum, ileocecal valve. SURGEON: Murtaza Roberto MD PROCEDURE: The patient was placed in the left lateral decubitus position. After adequate anesthesia sedation, rectal exam confirmed ____ of the rectal vault. Olympus colonoscope was introduced into the rectum and advanced easily under direct vision into the proximal colon until the cecum was identified. The ileocecal valve did appear to be normal. The mucosa appeared normal. There were no vascular abnormalities in the cecum. Colonoscope was gradually withdrawn, noting normal mucosa throughout the right colon and transverse colon. In the descending colon there did appear to be some granularity and very mild nonspecific inflammatory changes. These did appear to be patchy in nature, going down towards the sigmoid colon where some diverticulosis was noted. No luminal narrowing was seen. No ulcerations, no cobblestoning. Distal rectosigmoid appeared to be unremarkable. Rectum was normal and benign. Hemorrhoids were seen. No active bleeding was noted. The patient tolerated the procedure quite well and was brought to the recovery room in stable condition. Murtaza Roberto MD AHR/rt , 08:52 PM , 09:06 PM
== END 2018-01-08 12:27 | disposition home or self-care (01) | DRG 378 ==
LOC: NEPE 08:38 → NEDA 11:25 → N04B 14:17
PROVIDERS: ADMIT Hospitalist; ATTEND Hospitalist
PROC: 0DB78ZX Excision of Stomach, Pylorus, Via Natural or Artificial Opening Endoscopic, Diagnostic (ICD-10-PCS; 2018-01-01)
PROC: 0DBE8ZX Excision of Large Intestine, Via Natural or Artificial Opening Endoscopic, Diagnostic (ICD-10-PCS; principal; 2018-01-01 09:26)
PROC: 0DB58ZX Excision of Esophagus, Via Natural or Artificial Opening Endoscopic, Diagnostic (ICD-10-PCS; 2018-01-01 09:26)
PROC: 0DJD8ZZ Inspection of Lower Intestinal Tract, Via Natural or Artificial Opening Endoscopic (ICD-10-PCS; 2018-01-07)
DX: K29.01 Acute gastritis with bleeding (principal); K55.8 Other vascular disorders of intestine; E11.9 Type 2 diabetes mellitus without complications; I10 Essential (primary) hypertension; D72.825 Bandemia; F32.9 Major depressive disorder, single episode, unspecified; K55.9 Vascular disorder of intestine, unspecified; K92.1 Melena; K52.9 Noninfective gastroenteritis and colitis, unspecified; I48.91 Unspecified atrial fibrillation; M06.9 Rheumatoid arthritis, unspecified; M19.90 Unspecified osteoarthritis, unspecified site; Z79.4 Long term (current) use of insulin; E78.5 Hyperlipidemia, unspecified; K20.9 Esophagitis, unspecified; K62.1 Rectal polyp; K64.8 Other hemorrhoids; N40.0 Benign prostatic hyperplasia without lower urinary tract symptoms; M10.9 Gout, unspecified; F43.10 Post-traumatic stress disorder, unspecified; Z79.899 Other long term (current) drug therapy; E78.00 Pure hypercholesterolemia, unspecified; F10.10 Alcohol abuse, uncomplicated; K64.4 Residual hemorrhoidal skin tags; I25.10 Atherosclerotic heart disease of native coronary artery without angina pectoris; F19.10 Other psychoactive substance abuse, uncomplicated; F17.200 Nicotine dependence, unspecified, uncomplicated; Z88.8 Allergy status to other drugs, medicaments and biological substances
CPT/HCPCS: 74174; 74177; 76937; 80048; 80053; 80061; 81001; 82948; 83605; 83690; 83735; 85007; 85025; 85027; 85610; 85652; 85730; 86850; 86900; 86901; 87328; 87329; 87493; 87506; 88305; 88312; 93005; 96360; C9113; J0744; J1720; J1815; J2270; J2920; J3480; J7030; Q9967